=== PATIENT | female | born 1940 | race Caucasian/White ===

== ENCOUNTER → 2023-06-11 09:58 | Outpatient (REF) | payer MEDICARE, MEDICAID, SELFPAY ==
[2023-06-11 14:57] LABS: Vitamin B12 423 pg/ml (239-931)
== END ==
LOC: OLABN 09:58
PROVIDERS: ATTENDING PHYSICIAN Student in an Organized Health Care Education/Training Program
DX: M79.2 Neuralgia and neuritis, unspecified (principal); D53.9 Nutritional anemia, unspecified
CPT/HCPCS: 36415; 82525; 82607; 84630

== ENCOUNTER → 2023-06-20 10:08 | Outpatient (REF) | payer MEDICARE, MEDICAID, SELFPAY ==
[2023-06-20 11:28] LABS: % Basophils 0.3 % (0-2); % Eosinophils 2.9 % (0-6); % Lymphocytes 14.2 % (20.5-51.1); % Monocytes 10.1 % (1.7-9.3); % Neutrophils 71.5 % (42.2-75.2); Absolute Eosinophils 0.3 10^3/uL (0-0.7); Absolute Immature Granulocytes 0.1 10^3/uL (0-0.05); Absolute Lymphocytes 1.7 10^3/uL (1.2-3.4); Absolute Monocytes 1.2 10^3/uL (0.1-0.6); Absolute Neutrophils 8.3 10^3/uL (1.4-6.5); Hematocrit 33.7 % (37.0-47.0); Hemoglobin 10.3 g/dL (12.0-16.0); Mean Corp Hgb Conc. 30.6 g/dL (33.0-37.0); Mean Corpuscular Hgb 25.3 pg (27.0-31.0); Mean Corpuscular Volume 82.8 fL (81.0-99.0); Mean Platelet Volume 9.8 fL (7.4-10.4); Nucleated Red Blood Cells % 0 %; Platelet Count 228 10^3/uL (130-400); Red Blood Cell Count 4.07 10^6/uL (4.20-5.40); Red Cell Dist. Width 15.1 % (11.5-14.5); White Blood Cell Count 11.7 10^3/uL (4.8-10.8)
== END ==
LOC: OLABN 10:08
PROVIDERS: ATTENDING PHYSICIAN Student in an Organized Health Care Education/Training Program
DX: R05.9 Cough, unspecified (principal)
CPT/HCPCS: 36415; 85025

== ENCOUNTER → 2023-06-21 10:52 | Outpatient (REF) | payer MEDICARE, MEDICAID, SELFPAY ==
[2023-06-21 12:27] LABS: Urine Albumin 1+ (Neg - Trace); Urine Bilirubin Negative (Negative); Urine Character Very Cloudy (Clear); Urine Color Yellow; Urine Glucose Negative (Negative); Urine Ketone Trace (Negative); Urine Leukocyte 1+ (Negative); Urine Nitrite Negative (Negative); Urine Occult Blood Negative (Negative); Urine Urobilinogen Negative (Neg - 1+)
[2023-06-21 12:56] LABS: Urine Bacteria Many (Negative); Urine Red Blood Cell None Seen /HPF (0-2); Urine Triple Phosphate Crystal Present
== END ==
LOC: OLABN 10:52
PROVIDERS: ATTENDING PHYSICIAN Student in an Organized Health Care Education/Training Program
DX: R05.9 Cough, unspecified (principal); R82.90 Unspecified abnormal findings in urine
CPT/HCPCS: 36415; 81003; 81015; 87086

== ENCOUNTER → 2023-06-24 10:58 | Outpatient (REF) | payer MEDICARE, MEDICAID, SELFPAY | LOC: OLABN 10:58 | PROVIDERS: ATTENDING PHYSICIAN Student in an Organized Health Care Education/Training Program | DX: R05.9 Cough, unspecified (principal) | CPT/HCPCS: 36415 ==

== ENCOUNTER → 2023-06-25 11:38 | Outpatient (REF) | payer MEDICARE, MEDICAID, SELFPAY ==
[2023-06-25 13:22] LABS: Blood Urea Nitrogen 27 mg/dl (7-17); Calcium 8.5 mg/dl (8.4-10.2); Carbon Dioxide 30 mmol/L (22-30); Chloride 99 mmol/L (98-107); Glucose 94 mg/dl (70-99); Potassium 4.3 mmol/L (3.5-5.1); Sodium 138 mmol/L (135-145); eGFR 38.03
== END ==
LOC: OLABN 11:38
PROVIDERS: ATTENDING PHYSICIAN Student in an Organized Health Care Education/Training Program
DX: R05.9 Cough, unspecified (principal)
CPT/HCPCS: 36415; 80048

== ENCOUNTER 2023-07-31 16:15 | Inpatient (IN) | payer MEDICARE, MEDICAID, SELFPAY ==
[2023-07-31] VITALS (11 sets, daily range): BP systolic 106–166; BP diastolic 47–97; BMI 34.1
[2023-07-31 11:25] LABS: % Basophils 0.3 % (0-2); % Eosinophils 1.2 % (0-6); % Immature Granulocytes 0.4 % (0-0.5); % Lymphocytes 7.5 % (20.5-51.1); % Monocytes 3.5 % (1.7-9.3); % Neutrophils 87.1 % (42.2-75.2); Absolute Eosinophils 0.1 10^3/uL (0-0.7); Absolute Lymphocytes 0.7 10^3/uL (1.2-3.4); Absolute Monocytes 0.3 10^3/uL (0.1-0.6); Absolute Neutrophils 8.1 10^3/uL (1.4-6.5); Hematocrit 35.8 % (37.0-47.0); Hemoglobin 10.7 g/dL (12.0-16.0); Mean Corp Hgb Conc. 29.9 g/dL (33.0-37.0); Mean Corpuscular Hgb 24.6 pg (27.0-31.0); Mean Corpuscular Volume 82.3 fL (81.0-99.0); Mean Platelet Volume 8.9 fL (7.4-10.4); Nucleated Red Blood Cells % 0 %; Platelet Count 184 10^3/uL (130-400); Red Blood Cell Count 4.35 10^6/uL (4.20-5.40); White Blood Cell Count 9.3 10^3/uL (4.8-10.8)
[2023-07-31] MEDS: NSS 500 IV (11:27)
[2023-07-31 11:36] LABS: Lactic Acid 2.6 mmol/L (0.7-2.0)
[2023-07-31 11:37] LABS: ALT (SGPT) 16 U/L (0-35); AST (SGOT) 23 U/L (14-36); Albumin 4.2 g/dl (3.5-5.0); Alkaline Phosphatase 135 U/L (38-126); Blood Urea Nitrogen 22 mg/dl (7-17); Calcium 9.2 mg/dl (8.4-10.2); Carbon Dioxide 27 mmol/L (22-30); Chloride 102 mmol/L (98-107); Estimated Creatinine Clearance 45 ml/min; Glucose 107 mg/dl (70-99); Potassium 4.1 mmol/L (3.5-5.1); Sodium 138 mmol/L (135-145); Total Bilirubin 0.6 mg/dl (0.2-1.3); Total Protein 7.1 g/dl (6.3-8.2); eGFR 41.57
[2023-07-31 11:38] LABS: Urine Albumin Trace (Neg - Trace); Urine Bilirubin Negative (Negative); Urine Character Clear (Clear); Urine Color Yellow; Urine Glucose Negative (Negative); Urine Ketone Negative (Negative); Urine Leukocyte 1+ (Negative); Urine Nitrite Positive (Negative); Urine Occult Blood Negative (Negative); Urine Urobilinogen Negative (Neg - 1+)
[2023-07-31 11:56] LABS: Urine Mucus Few
[2023-07-31 11:57] LABS: Urine Amorphous Seen; Urine White Cell 30-40 /HPF (0-5)
[2023-07-31 11:58] LABS: Urine Bacteria Moderate (Negative)
[2023-07-31] MEDS: TYLENOL 650 MG PO ×2 (11:59→18:46)
[2023-07-31 12:40] LABS: COVID-19 Antigen Negative (Negative)
[2023-07-31] MEDS: ROXICODONE 5 MG PO (12:49)
--- NOTE | 2023-07-31 14:36 | ED.GENMED ---
History of Present Illness
General
Chief Complaint: Urinary Symptoms
Source: patient
Time Seen by Provider: 07/31/23 10:48
Travel History
Have you had any contact with someone who has COVID-19?: No
Do you have any symptoms of coronavirus? Fever > 100 degrees, chills, cough, shortness of breath, sore throat, loss of taste or smell, muscle aches, or headache?: Yes
Symptoms:: fever
History of Present Illness
History of Present Illness:
82-year-old female sent to the emergency room from [facility] where the staff were concerned the patient may be developing an infection. They states she seems less responsive and more confused than normal. Patient has had urinary tract
infections in the past. She evidently has been 'septic' in the past. They were concerned that she might quickly decompensate. Patient offers no complaints.
Past History
Past History
ED Past Medical History: Arrthythmia (SSS), HTN, Hypothyroidism and Other (Chronic idiopathic neuropathy, irritable bowel syndrome, arthritis, neurogenic bladder-self caths)
ED Past Surgical History: Cardiac (pacemaker), Cholecystectomy, Orthopedic and Other (thyroidectomy)
Social History
Tobacco: Non-smoker
Alcohol: None
Drug: None
Personal:
Living: alone
Employment: Not employed
Family History
Family History: Other
Phy Exam
Physical Exam
Physical Exam:
General: Awake, Alert, Oriented X2. Appears chronically ill
Vitals: Initially afebrile but repeat temperature measurements noted a temperature of 102.5
Head: Atraumatic
Eyes: Pupils equal, EOMI
Throat: Airway intact, no exudates, dry mucosa
Neck: Trachea midline
Lungs: Clear and equal b/l
Heart: Regular rate, no murmurs
Abd: Soft, Nontender, No pulsatile mass
Genitalia: Indwelling Hair
Neuro: Grossly nonfocal
Skin: Warm, dry, no rash
Extremities: pulses equal b/l, 1+ edema
Course
Orders/Labs/Results
Orders:
Orders
07/31/23 10:53
CR Chest - 2 Views Urgent
Comment:
Reason For Exam: malaise, cough
07/31/23 10:54
0.9% Sodium Chloride 500 ml [Nss] 500 ml IV BOLUS
07/31/23 11:16
Complete Blood Count/With Diff Urgent
Comprehensive Metabolic Panel Urgent
Lactic Acid Q4H
Comment: CANCEL 2nd LACTIC ACID IF 1st LACTIC ACID IS LESS THAN 2
Urinalysis Reflex To Culture Urgent
Date Specimen was Collected: 07/31/23
Time Specimen was Collected: 11:14
Urine Microscopic Reflex Cult Urgent
Urine Culture Urgent
JUAN PABLO Source: U
Specimen Description:
Date Specimen was Collected: 07/31/23
Time Specimen was Collected: 11:14
07/31/23 11:58
Acetaminophen [Tylenol] 650 mg .ROUTE .STK-MED ONE
07/31/23 11:59
Acetaminophen [Tylenol] 650 mg PO NOW STA
07/31/23 12:20
COVID-19 Antigen Urgent
Source: Nasal Swab
Influenza A+B Rapid Molecular Urgent
JUAN PABLO Source: Nasal Swab
Specimen Description:
07/31/23 12:45
Oxycodone [Roxicodone] 5 mg PO NOW STA
07/31/23 14:34
CefTRIAXone [Rocephin] 1,000 mg IV NOW STA
07/31/23 15:14
Lactic Acid Q4H
Comment: CANCEL 2nd LACTIC ACID IF 1st LACTIC ACID IS LESS THAN 2
07/31/23 15:34
Admit/Transfer Patient As Directed
Co-Sign Provider:
Level of Care: Inpatient admission
Assign to:: Medical/Surgical
Physician / Group: Mirsky/Hospitalist
Diagnosis: CAUTI
Reason for Hospitalization: Sepsis
CAUTI
Expected length of stay greater than two midnights?: Yes
ELOS- Estimated Length of Stay in days: 4
I certify the patient meets the requirements for IP care: Yes
07/31/23 15:42
Code Status As Directed
Resuscitation Status: Do not resuscitate
Reached after discussion with pt or family/Healthcare POA: Yes
Decision communicated with: dgt and pt
07/31/23 15:44
DNR Bracelet Application ONCE
Abnormal Lab Results
07/31/23
11:16
Hgb 10.7 L g/dL
(12.0-16.0)
Hct 35.8 L %
(37.0-47.0)
MCH 24.6 L pg
(27.0-31.0)
MCHC 29.9 L g/dL
(33.0-37.0)
RDW 15.0 H %
(11.5-14.5)
Absolute Neuts (auto) 8.1 H 10^3/uL
(1.4-6.5)
Absolute Lymphs (auto) 0.7 L 10^3/uL
(1.2-3.4)
Neutrophils % 87.1 H %
(42.2-75.2)
Lymphocytes % 7.5 L %
(20.5-51.1)
BUN 22 H mg/dl
(7-17)
Creatinine 1.3 H mg/dL
(0.6-1.0)
Glucose 107 H mg/dl
(70-99)
Lactic Acid 2.6 H mmol/L
(0.7-2.0)
Alkaline Phosphatase 135 H U/L
(38-126)
Urine Nitrite (Reflex) Positive A
(Negative)
Leukocyte Esterase Rfl 1+ A
(Negative)
Urine RBC 3-6 A /HPF
(0-2)
Urine WBC (Reflex) 30-40 A /HPF
(0-5)
Urine Bacteria (Reflex) Moderate A
(Negative)
07/31/23 11:16
07/31/23 11:16
Vital Signs
Initial and Last Documented VS:
Initial Vital Signs
Pulse Resp Pulse Ox
62 14 96
07/31/23 10:51 07/31/23 10:51 07/31/23 10:51
Last Documented Vital Signs
Temp Pulse Resp BP Pulse Ox
100.1 F 80 21 115/91 94
07/31/23 15:43 07/31/23 15:43 07/31/23 15:43 07/31/23 15:43 07/31/23 15:43
MDM/Problems Addressed
Differential Diagnosis Includes:
COVID, influenza, UTI, pneumonia
MDM/Problems Addressed:
Patient spiked a temp while here. Source of infection appears. Urine. At the back of previous microbiology results and see that in April she grew Proteus. It was sensitive to ceftriaxone among other antibiotics. Therefore ceftriaxone was
administered. Patient has remained hemodynamically stable. She was treated with antipyretics for her fever. Lactate mildly elevated. She will require hospitalization for IV antibiotics and careful monitoring.
Chronic conditions affecting care: HTN, Arrhythmia (Sick sinus syndrome status post pacemaker placement) and Other (Prolapse bladder with indwelling Hair catheter)
*Radiology
Radiology exam reviewed: preliminary read by ED provider (Reviewed patient's chest x-ray and see no acute disease)
*Pulse Oximetry
Patient hypoxic: no
*Memory Care Director Interpretation
Rate: normal
Interpretation: normal
Rhythm: sinus
*Critical Care Note
Total Time (30-74mins, 75-104mins- exclusive of procedures): Not Applicable
ED Attending Note
-
Portions of this chart may have been created with voice recognition software.� Occasional wrong word or��sound alike� substitutions may have occurred due to the inherent limitations of voice recognition software.
Discharge Plan
Departure
Patient Disposition: Admit
Date of Disposition: 07/31/23
Time of Disposition: 14:36
Admit to: Med/Surg
Presentation/result/management discussed w/ accepting MD/DO: Hospitalist
Condition: Fair
Discharge Problem:
Acute UTI
Prescriptions:
No Action
metoprolol tartrate 100 MG tablet
100 mg PO BID@0830,1830
levothyroxine 150 MCG tablet
150 mcg PO DAILY@0630
losartan 50 mg Tablet
50 mg PO DAILY@08
Trelegy Ellipta 200-62.5-25 mcg Blister With Device
1 inh INHALATION R DAILY@829
furosemide 40 MG tablet
40 mg PO DAILY@829
duloxetine 30 MG capsule,delayed release(DR/EC)
30 mg PO DAILY@1829
duloxetine 60 MG capsule,delayed release(DR/EC)
60 mg PO DAILY@0830
magnesium hydroxide [Milk of Magnesia] 400 mg/5 mL Suspension
2,400 mg PO HSPRN PRN (Reason: constipation)
bisacodyl [Dulcolax (bisacodyl)] 10 mg Suppository
10 mg AL [id number] PRN (Reason: if no BM/MOM ineffective)
lidocaine 4 % Adhesive Patch,Medicated
2 patch TOPICAL Q12H
Patient Comments:
07/31/2023, 1 patch to left shoulder and 1 patch to left knee.
oxycodone-acetaminophen [Percocet] 5-325 mg Tablet
1 tab PO Q4H
Rx Instructions:
07/31/2023, @0030,0430,0830,1230,1630,2030.
mirtazapine 30 mg Tablet
30 mg PO DAILY@2029
acetaminophen 325 MG tablet
650 mg PO DAILYPRN MDD 3000 mg PRN (Reason: mild pain/fever>100.4)
loperamide 2 mg Tablet
2 mg PO Q6HPRN PRN (Reason: diarrhea)
cyanocobalamin (vitamin B-12) 1,000 mcg Tablet, Sublingual
1,000 mcg SUBLINGUAL QMONTH@829
diclofenac sodium 1 % Gel
4 g TOPICAL Q6HPRN PRN (Reason: apply to left shoulder)
alprazolam [Xanax] 0.25 mg Tablet
0.25 mg PO BIDPRN PRN (Reason: anxiety)
ipratropium-albuterol 0.5 mg-3 mg(2.5 mg base)/3 mL solution for nebulization
3 ml INHALATION R DAILY@2029
aspirin 81 mg Tablet,Chewable
81 mg PO DAILY@829
nitrofurantoin macrocrystal 50 mg Capsule
50 mg PO DAILY@2029
ipratropium-albuterol 0.5 mg-3 mg(2.5 mg base)/3 mL Solution For Nebulization
3 ml INHALATION R Q6HPRN PRN (Reason: sob)
ropinirole 3 mg Tablet
1.5 mg PO DAILY@1829
triamcinolone acetonide 0.1 % Paste
1 applic DENTAL QIDPRN PRN (Reason: canker sores)
gabapentin 800 mg Tablet
800 mg PO TID@829,1329,2029
cranberry 400 mg Capsule
400 mg PO DAILY@829
docusate sodium [Colace] 100 mg Capsule
100 mg PO DAILY@829
calcium carbonate [Tums 500] 500 mg calcium (1,250 mg) Tablet,Chewable
500 mg PO DAILY PRN (Reason: acid indigestion)
diclofenac sodium 1 % Gel
2 g TOPICAL Q6HPRN PRN (Reason: left knee pain)
omeprazole 20 mg Tablet,Delayed Release (Dr/Ec)
20 mg PO BID@829,1829
cholecalciferol (vitamin D3) 1,250 mcg (50,000 unit) Tablet
1,250 mcg PO QMONTH@829
Probiotic Colon Support
1 cap PO DAILY@829
diltiazem HCl 300 MG capsule,extended release 24hr
300 mg PO DAILY@829
dicyclomine 10 MG capsule
10 mg PO TIDPRN PRN (Reason: IBS)
Referrals:
Rui Roe DO [Family Provider] -
Interventions
Interventions:
*Risk Screen - Suicide Last Done: 07/31/23 11:12
*Neglect/Abuse Screening Last Done: 07/31/23 11:12
ED- Fall Risk Assessment Last Done: 07/31/23 11:21
*ED COVID-19 Vaccine History Last Done: 07/31/23 11:20
ED-Female Genitourinary Assessment Last Done: 07/31/23 11:22
Discharge Date and Time
Print Language: KOREAN
[2023-07-31] MEDS: ROCEPHIN 1000 MG IV (14:47)
[2023-07-31 15:32] LABS: Lactic Acid 1.4 mmol/L (0.7-2.0)
--- NOTE | 2023-07-31 16:20 | W.PN.HOSP.TC ---
Today's Communication/Plan
-
empiric IV abx
Assessment / Plan
Assessment / Plan
CAUTI
pt would intermittently cath for ~12hrs, becoming more difficult and now has chronic indwelling past 1 yr. Ur cx pending
Left Knee warm to the touch
she had synvisc injection to this knee 2 weeks [employer]
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
PPM
Neurogenic bladder
obesity
nonambulatory
hypothyroid on replacement
Irritable Bowel syndrome
P:IVF
empiric Rocephin pending Ur cx
follow progression of left knee warmth, may need ortho eval
DNR
see dictated note
Anticipated Discharge: > 48 hours
Subjective/Interval History
-
Date of Service: July 31, 2023
onset of chills at [facility], concern for recurrent sepsis and sent to for evaluation
Objective Data
-
Labs:
Laboratory Results
07/31/23
11:16
WBC 9.3
Hgb 10.7 L
Hct 35.8 L
Plt Count 184
Sodium 138
Potassium 4.1
Chloride 102
Carbon Dioxide 27
BUN 22 H
Creatinine 1.3 H
Glucose 107 H
Calcium 9.2
Total Bilirubin 0.6
AST 23
ALT 16
Alkaline Phosphatase 135 H
Vital Signs:
Vital Signs
Temp Pulse Resp BP Pulse Ox
100.1 F 80 21 115/91 94
07/31/23 15:43 07/31/23 15:43 07/31/23 15:43 07/31/23 15:43 07/31/23 15:43
I&O
07/30/23 07/31/23 08/01/23
06:59 06:59 06:59
Output Total 875 / 875
Balance -875 / -87
Review of Systems
-
History Source: Patient and Family (dgt Yudith at bedside)
Constitutional: Reports Fever (102.5)
EENT: Reports No Symptoms Reported
Respiratory: Reports No Symptoms
Cardiac: Reports No Symptoms; Denies Chest Pain
Abdomen/GI: Reports No Symptoms
Genitourinary: Reports Other (chronic indwelling klein due to neurogenic bladder)
Physical Exam
-
General: Well Developed, Well Nourished, No Apparent Distress, Appears Chronically Ill and Obese
HEENT: Normocephalic, Atraumatic and Moist Mucous Membranes
Respiratory: Clear to Auscultation; Negative Wheezes, Rales or Rhonchi
Cardiac: Regular Rhythm and S1/S2
GI: Soft, Nontender and Nondistended
Musculoskeletal: No Clubbing, No Cyanosis, No Edema and Other (left knee warm to the touch)
[2023-07-31] MEDS: PERCOCET 5/325 1 TABLET PO ×2 (17:14→21:13)
[2023-07-31] MEDS: DUONEB 3 ML INH (19:50)
[2023-07-31] MEDS: NSS 1000 IV (21:07)
[2023-07-31] MEDS: PROTONIX 40 MG PO (21:08)
[2023-07-31] MEDS: CYMBALTA DELAYED RELEASE 30 MG PO (21:10)
[2023-07-31] MEDS: LOPRESSOR 100 MG PO (21:10)
[2023-07-31] MEDS: HEPARIN 5000 UNITS SC (21:11)
[2023-07-31] MEDS: REQUIP 1.5 MG PO (21:12)
[2023-07-31] MEDS: NEURONTIN 800 MG PO (21:30)
[2023-07-31] MEDS: REMERON 30 MG PO (21:30)
[2023-08-01] MEDS: PERCOCET 5/325 PO (02:26)
[2023-08-01] MEDS: PERCOCET 5/325 1 TABLET PO ×5 (05:38→20:29)
[2023-08-01 06:20] LABS: Hematocrit 29.7 % (37.0-47.0); Mean Corp Hgb Conc. 30.3 g/dL (33.0-37.0); Mean Corpuscular Hgb 24.7 pg (27.0-31.0); Mean Corpuscular Volume 81.4 fL (81.0-99.0); Mean Platelet Volume 9.6 fL (7.4-10.4); Platelet Count 150 10^3/uL (130-400); Red Blood Cell Count 3.65 10^6/uL (4.20-5.40); Red Cell Dist. Width 15.4 % (11.5-14.5); White Blood Cell Count 8.6 10^3/uL (4.8-10.8)
[2023-08-01 06:53] LABS: ALT (SGPT) 13 U/L (0-35); AST (SGOT) 22 U/L (14-36); Albumin 3.3 g/dl (3.5-5.0); Alkaline Phosphatase 115 U/L (38-126); Blood Urea Nitrogen 21 mg/dl (7-17); Calcium 8.5 mg/dl (8.4-10.2); Carbon Dioxide 26 mmol/L (22-30); Chloride 106 mmol/L (98-107); Estimated Creatinine Clearance 43 ml/min; Glucose 93 mg/dl (70-99); Potassium 3.7 mmol/L (3.5-5.1); Sodium 137 mmol/L (135-145); Total Bilirubin 0.4 mg/dl (0.2-1.3); Total Protein 5.7 g/dl (6.3-8.2); eGFR 41.57
[2023-08-01] MEDS: SYMBICORT 160/4.5 MCG INHALER 2 PUFF INH (07:59)
[2023-08-01] MEDS: SPIRIVA RESPIMAT 2.5 MCG 2 PUFF INH (07:59)
[2023-08-01 08:00] VITALS: BP 142/69
[2023-08-01] MEDS: NSS 1000 IV (08:09)
[2023-08-01] MEDS: CYMBALTA DELAYED RELEASE 60 MG PO (08:09)
[2023-08-01] MEDS: LOW STRENGTH ASPIRIN 81 MG PO (08:09)
[2023-08-01] MEDS: PROTONIX 40 MG PO ×2 (08:09→17:32)
[2023-08-01] MEDS: SYNTHROID 150 MCG PO (08:10)
[2023-08-01] MEDS: LIDOCAINE 4% PATCH 2 PATCH TOPICAL (08:10)
[2023-08-01] MEDS: COLACE 100 MG PO (08:10)
[2023-08-01] MEDS: VISBIOME 1 CAP PO (08:10)
[2023-08-01] MEDS: HEPARIN 5000 UNITS SC ×2 (08:10→20:28)
[2023-08-01] MEDS: LOPRESSOR 100 MG PO ×2 (08:11→17:32)
[2023-08-01] MEDS: CARDIZEM CD 300 MG PO (08:11)
[2023-08-01] MEDS: LASIX 40 MG PO (08:11)
[2023-08-01] MEDS: COZAAR 50 MG PO (08:11)
[2023-08-01] MEDS: NEURONTIN 800 MG PO ×3 (08:17→20:32)
[2023-08-01 09:54] VITALS: BP 138/62; PULSE 71
[2023-08-01 09:59] VITALS: BP 138/62; O2SAT 96
--- NOTE | 2023-08-01 12:08 | W.PN.HOSP.TC ---
Today's Communication/Plan
-
check AM procal and if + can add doxy
switch to Merrem given prior ESBL hx
monitor knee for any signs of effusion or warmth
Assessment / Plan
Assessment / Plan
Assessment:
CAUTI, POA
hx of Neurogenic bladder with prolapsed bladder
- the chronic Hair was exchanged in ER
- prior hx of ESBL - will switch to Merrem pending final data
Acute hypoxic respiratory insufficiency on 2L
- CXR with atelectasis, cannot rule out PNA
- check procal, if positive, will add Doxy
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
- s/p Synvisc injection 2 weeks ago
- slightly warm but no effusion, patient with baseline ROM
- CTM
- on diclofenac outpatient
- on lidocaine patches
CKD stage 3b
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
Neuropathy
- Gabapentin
Essential HTN - continue ARB
hx SSS s/p PPM
- continue BB
obesity
nonambulatory
hypothyroidism on replacement
Irritable Bowel syndrome
- on prn Bentyl
anxiety/depression
- on meds
DVT ppx: SC Heparin
Code: DNR
Anticipated Discharge: > 48 hours
Subjective/Interval History
-
Date of Service: August 01, 2023
denies any new complaints at present
Objective Data
-
Labs:
Laboratory Results
08/01/23
05:34
WBC 8.6
Hgb 9.0 L
Hct 29.7 L
Plt Count 150
Sodium 137
Potassium 3.7
Chloride 106
Carbon Dioxide 26
BUN 21 H
Creatinine 1.3 H
Glucose 93
Calcium 8.5
Total Bilirubin 0.4
AST 22
ALT 13
Alkaline Phosphatase 115
Vital Signs:
Vital Signs
Temp Pulse Resp BP Pulse Ox
99.2 F 74 18 142/69 98
08/01/23 08:00 08/01/23 08:11 08/01/23 08:02 08/01/23 08:11 08/01/23 10:37
I&O
07/31/23 08/01/23 08/02/23
06:59 06:59 06:59
Intake Total 720 / 720
Output Total 1974 650 / 650
Balance -1255 / -1255 -650 / -650
Physical Exam
-
General: No Apparent Distress
HEENT: Normocephalic and Atraumatic
Respiratory: Negative Wheezes
Cardiac: Regular Rhythm and S1/S2
GI: Soft and Nontender
Genito-urinary: No Costovertebral Tender
Neuro: AO x 3
Psych: Calm
Data Reviewed
-
Total Time Spent with Patient (in minutes): 45
Labs: Labs Reviewed by me
[2023-08-01] MEDS: VENTOLIN NEBULES 2.5 MG INH (12:23)
[2023-08-01] MEDS: VIBRAMYCIN 100 MG PO ×2 (13:00→20:28)
[2023-08-01] MEDS: STERILE WATER FOR INJECTION 10 ML IV ×2 (13:00→20:29)
[2023-08-01] MEDS: MERREM 500 MG IV ×2 (13:00→20:30)
--- NOTE | 2023-08-01 13:19 | CM ---
Reviewed the chart notes and spoke with the patient at the bedside. 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 Left message for Sterling héctor liaison with [facility] to confirm. The patient reports being wheelchair bound at baseline.
The patient anticipates being discharged back to [facility] when medically stable. No precert required. CM continues to be available to patient/family and is monitoring medical plan for needs at discharge.
Plan: Discharge back to [facility] when medically stable. No precert required.
--- NOTE | 2023-08-01 15:30 | PTCARENOTE ---
Patient complaining of mild SOB at rest, unrelieved by PRN resp treatment. VSS, patient 97% on 2L, lungs clear to auscultation. made aware, IVF JASWANT.
[2023-08-01 16:00] VITALS: BP 129/62
[2023-08-01] MEDS: CYMBALTA DELAYED RELEASE 30 MG PO (17:32)
[2023-08-01] MEDS: REQUIP 1.5 MG PO (17:32)
[2023-08-01] MEDS: VENTOLIN NEBULES INH (20:16)
[2023-08-01] MEDS: REMERON 30 MG PO (20:29)
[2023-08-01 23:20] VITALS: BP 110/57
[2023-08-02] MEDS: PERCOCET 5/325 PO (00:25)
[2023-08-02] MEDS: STERILE WATER FOR INJECTION 10 ML IV ×3 (04:32→20:24)
[2023-08-02] MEDS: MERREM 500 MG IV ×3 (04:32→20:23)
[2023-08-02] MEDS: PERCOCET 5/325 1 TABLET PO ×5 (04:33→20:22)
[2023-08-02] MEDS: SYNTHROID 150 MCG PO (05:26)
[2023-08-02 07:40] VITALS: BP 154/71
[2023-08-02] MEDS: SYMBICORT 160/4.5 MCG INHALER 2 PUFF INH (07:41)
[2023-08-02] MEDS: SPIRIVA RESPIMAT 2.5 MCG 2 PUFF INH (07:41)
[2023-08-02] MEDS: HEPARIN 5000 UNITS SC ×2 (08:07→20:22)
[2023-08-02] MEDS: VISBIOME 1 CAP PO (08:09)
[2023-08-02] MEDS: CYMBALTA DELAYED RELEASE 60 MG PO (08:09)
[2023-08-02] MEDS: LIDOCAINE 4% PATCH 2 PATCH TOPICAL (08:09)
[2023-08-02] MEDS: LASIX 40 MG PO (08:09)
[2023-08-02] MEDS: VIBRAMYCIN 100 MG PO ×2 (08:09→20:22)
[2023-08-02] MEDS: LOW STRENGTH ASPIRIN 81 MG PO (08:09)
[2023-08-02] MEDS: COZAAR 50 MG PO (08:10)
[2023-08-02] MEDS: PROTONIX 40 MG PO ×2 (08:10→17:46)
[2023-08-02] MEDS: COLACE 100 MG PO (08:11)
[2023-08-02] MEDS: CARDIZEM CD 300 MG PO (08:11)
[2023-08-02] MEDS: LOPRESSOR 100 MG PO ×2 (08:11→17:46)
[2023-08-02 09:18] LABS: Hematocrit 32.3 % (37.0-47.0); Hemoglobin 9.8 g/dL (12.0-16.0); Mean Corp Hgb Conc. 30.3 g/dL (33.0-37.0); Mean Corpuscular Hgb 24.4 pg (27.0-31.0); Mean Corpuscular Volume 80.5 fL (81.0-99.0); Mean Platelet Volume 9.3 fL (7.4-10.4); Platelet Count 172 10^3/uL (130-400); Red Blood Cell Count 4.01 10^6/uL (4.20-5.40); Red Cell Dist. Width 15.3 % (11.5-14.5); White Blood Cell Count 7.7 10^3/uL (4.8-10.8)
[2023-08-02] MEDS: NEURONTIN 800 MG PO ×3 (09:37→20:21)
[2023-08-02 09:41] LABS: Blood Urea Nitrogen 16 mg/dl (7-17); Carbon Dioxide 28 mmol/L (22-30); Chloride 108 mmol/L (98-107); Estimated Creatinine Clearance 51 ml/min; Glucose 105 mg/dl (70-99); Potassium 3.8 mmol/L (3.5-5.1); Sodium 138 mmol/L (135-145)
[2023-08-02 10:36] LABS: Procalcitonin 3.67 ng/ml (0.0-0.25)
--- NOTE | 2023-08-02 12:43 | W.PN.HOSP.TC ---
Today's Communication/Plan
-
continue Merrem/Doxy
follow cultures
wean O2
Assessment / Plan
Assessment / Plan
Assessment:
CAUTI, POA
hx of Neurogenic bladder with prolapsed bladder
- the chronic Hair was exchanged in ER
- continue Merrem
- UCx growing multi-drug resistant Klebsiella and Pseudomas
Acute hypoxic respiratory insufficiency on 2L
- CXR with atelectasis, procal elevated
- continue Merrem, Doxy, day 2
- wean O2 as able
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
- s/p Synvisc injection 2 weeks ago
- slightly warm but no effusion, patient with baseline ROM
- CTM
- on diclofenac outpatient
- on lidocaine patches
CKD stage 3b
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
Neuropathy
- Gabapentin
Essential HTN - continue ARB
hx SSS s/p PPM
- continue BB
obesity
nonambulatory
hypothyroidism on replacement
Irritable Bowel syndrome
- on prn Bentyl
anxiety/depression
- on meds
DVT ppx: SC Heparin
Code: DNR
Anticipated Discharge: > 48 hours
Subjective/Interval History
-
Date of Service: August 02, 2023
SOB improving
denies any other complaints
Objective Data
-
Labs:
Laboratory Results
08/02/23
08:56
WBC 7.7
Hgb 9.8 L
Hct 32.3 L
Plt Count 172
Sodium 138
Potassium 3.8
Chloride 108 H
Carbon Dioxide 28
BUN 16
Creatinine 1.1 H
Glucose 105 H
Calcium 9.0
Vital Signs:
Vital Signs
Temp Pulse Resp BP Pulse Ox
98.2 F 77 15 154/71 96
08/02/23 07:40 08/02/23 08:11 08/02/23 07:48 08/02/23 08:11 08/02/23 08:00
I&O
08/01/23 08/02/23 08/03/23
06:59 06:59 06:59
Intake Total 720 / 720 1020 / 1020
Output Total 1974 / 1974 2300 / 2300
Balance -1255 / -1255 -1280 / -1280
Physical Exam
-
General: No Apparent Distress
HEENT: Normocephalic and Atraumatic
Respiratory: Negative Wheezes
Cardiac: Regular Rhythm and S1/S2
GI: Soft
Genito-urinary: No Costovertebral Tender
Neuro: AO x 3
Hematologic / Lymphatic: No Lymphadenopathy
Psych: Calm
Data Reviewed
-
Total Time Spent with Patient (in minutes): 45
Labs: Labs Reviewed by me
[2023-08-02 15:25] VITALS: BP 145/77
--- NOTE | 2023-08-02 15:28 | CM ---
Attending noted patient will return to [facility] earliest on FridayAugust 03.
[2023-08-02] MEDS: CYMBALTA DELAYED RELEASE 30 MG PO (17:45)
[2023-08-02] MEDS: REQUIP 1.5 MG PO (17:46)
[2023-08-02] MEDS: VENTOLIN NEBULES 2.5 MG INH (18:23)
[2023-08-02] MEDS: REMERON 30 MG PO (20:22)
[2023-08-02 23:40] VITALS: BP 110/57
[2023-08-03] MEDS: PERCOCET 5/325 PO ×2 (00:33→14:50)
[2023-08-03] MEDS: PERCOCET 5/325 1 TABLET PO ×5 (01:35→20:50)
[2023-08-03] MEDS: STERILE WATER FOR INJECTION 10 ML IV ×3 (05:21→20:50)
[2023-08-03] MEDS: SYNTHROID 150 MCG PO (05:21)
[2023-08-03] MEDS: MERREM 500 MG IV ×3 (05:22→20:51)
[2023-08-03 07:39] VITALS: BP 151/66
[2023-08-03] MEDS: SYMBICORT 160/4.5 MCG INHALER 2 PUFF INH (08:00)
[2023-08-03] MEDS: SPIRIVA RESPIMAT 2.5 MCG 2 PUFF INH (08:00)
[2023-08-03 08:51] LABS: Hematocrit 34.8 % (37.0-47.0); Hemoglobin 10.3 g/dL (12.0-16.0); Mean Corp Hgb Conc. 29.6 g/dL (33.0-37.0); Mean Corpuscular Hgb 24.5 pg (27.0-31.0); Mean Corpuscular Volume 82.9 fL (81.0-99.0); Mean Platelet Volume 9.4 fL (7.4-10.4); Platelet Count 191 10^3/uL (130-400); Red Cell Dist. Width 15.5 % (11.5-14.5); White Blood Cell Count 7.8 10^3/uL (4.8-10.8)
[2023-08-03 09:21] LABS: Blood Urea Nitrogen 18 mg/dl (7-17); Calcium 9.2 mg/dl (8.4-10.2); Carbon Dioxide 31 mmol/L (22-30); Chloride 102 mmol/L (98-107); Estimated Creatinine Clearance 47 ml/min; Glucose 87 mg/dl (70-99); Potassium 4.1 mmol/L (3.5-5.1); Sodium 140 mmol/L (135-145); eGFR 45.76
[2023-08-03] MEDS: LASIX 40 MG PO (10:06)
[2023-08-03] MEDS: HEPARIN 5000 UNITS SC ×2 (10:07→20:49)
[2023-08-03] MEDS: LOW STRENGTH ASPIRIN 81 MG PO (10:08)
[2023-08-03] MEDS: LOPRESSOR 100 MG PO ×2 (10:09→17:34)
[2023-08-03] MEDS: VIBRAMYCIN 100 MG PO ×2 (10:10→20:50)
[2023-08-03] MEDS: VISBIOME 1 CAP PO (10:13)
[2023-08-03] MEDS: COLACE 100 MG PO (10:13)
[2023-08-03] MEDS: PROTONIX 40 MG PO ×2 (10:14→17:34)
[2023-08-03] MEDS: COZAAR 50 MG PO (10:15)
[2023-08-03] MEDS: CARDIZEM CD 300 MG PO (10:15)
[2023-08-03] MEDS: CYMBALTA DELAYED RELEASE 60 MG PO (10:17)
[2023-08-03] MEDS: DICLOFENAC 1% TOPICAL GEL 2 GRAM TOPICAL (10:19)
[2023-08-03] MEDS: NEURONTIN 800 MG PO ×3 (10:21→21:04)
[2023-08-03] MEDS: LIDOCAINE 4% PATCH 2 PATCH TOPICAL (10:22)
[2023-08-03] MEDS: XANAX 0.25 MG PO (10:32)
--- NOTE | 2023-08-03 14:03 | W.PN.HOSP.TC ---
Today's Communication/Plan
-
continue Abx
likely DC in AM
Assessment / Plan
Assessment / Plan
Assessment:
CAUTI, POA
hx of Neurogenic bladder with prolapsed bladder
- the chronic Hair was exchanged in ER
- continue Merrem
- UCx growing multi-drug resistant Klebsiella and Pseudomonas
Acute hypoxic respiratory insufficiency on 2L
- CXR with atelectasis, procal elevated
- continue Merrem, Doxy, day 3; at dc switch Merrem to Levaquin
- wean O2 as able
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
- s/p Synvisc injection 2 weeks ago
- slightly warm but no effusion, patient with baseline ROM
- CTM
- on diclofenac outpatient
- on lidocaine patches
CKD stage 3b
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
Neuropathy
- Gabapentin/oxycodone
Essential HTN - continue ARB
hx SSS s/p PPM
- continue BB
obesity
nonambulatory
hypothyroidism on replacement
Irritable Bowel syndrome
- on prn Bentyl
anxiety/depression
- on meds
DVT ppx: SC Heparin
Code: DNR
Anticipated Discharge: Within 24 hours
Subjective/Interval History
-
Date of Service: August 03, 2023
anxious per daughter Yudith
no new complaints
Objective Data
-
Labs:
Laboratory Results
08/03/23
07:48
WBC 7.8
Hgb 10.3 L
Hct 34.8 L
Plt Count 191
Sodium 140
Potassium 4.1
Chloride 102
Carbon Dioxide 31 H
BUN 18 H
Creatinine 1.2 H
Glucose 87
Calcium 9.2
Vital Signs:
Vital Signs
Temp Pulse Resp BP Pulse Ox
98.0 F 70 16 151/66 95
08/03/23 07:39 08/03/23 10:15 08/03/23 07:55 08/03/23 10:15 08/03/23 07:55
I&O
08/02/23 08/03/23 08/04/23
06:59 06:59 06:59
Intake Total 1020 / 1020 1410 / 1410
Output Total 2300 / 2300 3650 / 3650
Balance -1280 / -1280 -2240 / -2240
Physical Exam
-
General: No Apparent Distress
HEENT: Normocephalic and Atraumatic
Respiratory: Negative Wheezes or Rales
Cardiac: Regular Rhythm and S1/S2
GI: Soft
Genito-urinary: No Costovertebral Tender
Neuro: AO x 3
Hematologic / Lymphatic: No Lymphadenopathy
Psych: Calm
Data Reviewed
-
Total Time Spent with Patient (in minutes): 42
Labs: Labs Reviewed by me
[2023-08-03 15:30] VITALS: BP 157/70
--- NOTE | 2023-08-03 15:58 | CM ---
[facility] anticipate stable for return tomorrow/Friday.
[2023-08-03] MEDS: CYMBALTA DELAYED RELEASE 30 MG PO (17:34)
[2023-08-03] MEDS: REQUIP 1.5 MG PO (17:34)
[2023-08-03] MEDS: REMERON 30 MG PO (20:50)
[2023-08-03] MEDS: VENTOLIN NEBULES INH (21:49)
[2023-08-03 23:08] VITALS: BP 149/76
[2023-08-04] MEDS: PERCOCET 5/325 PO (03:01)
[2023-08-04] MEDS: PERCOCET 5/325 1 TABLET PO ×3 (03:02→11:58)
[2023-08-04 03:34] VITALS: BMI 33.5
[2023-08-04] MEDS: MERREM 500 MG IV ×2 (05:23→12:01)
[2023-08-04] MEDS: SYNTHROID 150 MCG PO (05:24)
[2023-08-04] MEDS: STERILE WATER FOR INJECTION 10 ML IV ×2 (05:24→12:01)
[2023-08-04 06:18] LABS: Hemoglobin 10.3 g/dL (12.0-16.0); Mean Corp Hgb Conc. 30.3 g/dL (33.0-37.0); Mean Corpuscular Hgb 24.8 pg (27.0-31.0); Mean Corpuscular Volume 81.7 fL (81.0-99.0); Platelet Count 204 10^3/uL (130-400); Red Blood Cell Count 4.16 10^6/uL (4.20-5.40); White Blood Cell Count 9.4 10^3/uL (4.8-10.8)
[2023-08-04 06:46] LABS: Blood Urea Nitrogen 19 mg/dl (7-17); Calcium 9.4 mg/dl (8.4-10.2); Carbon Dioxide 31 mmol/L (22-30); Chloride 100 mmol/L (98-107); Estimated Creatinine Clearance 46 ml/min; Glucose 86 mg/dl (70-99); Sodium 139 mmol/L (135-145); eGFR 45.76
[2023-08-04] MEDS: SPIRIVA RESPIMAT 2.5 MCG 2 PUFF INH (07:45)
[2023-08-04] MEDS: SYMBICORT 160/4.5 MCG INHALER 2 PUFF INH (07:45)
[2023-08-04 08:11] VITALS: BP 142/83
--- NOTE | 2023-08-04 08:43 | CM ---
Addendum entered by Saira Oro RN 08/04/23 09:04:
spoke with Sterling anaya liaison with [facility].
Call report to: [phone]
Fax report to: [phone]
Medical necessity and transport form on chart.
Original Note:
IMM placed on chart.
[2023-08-04] MEDS: COLACE 100 MG PO (09:14)
[2023-08-04] MEDS: CARDIZEM CD 300 MG PO (09:14)
[2023-08-04] MEDS: CYMBALTA DELAYED RELEASE 60 MG PO (09:14)
[2023-08-04] MEDS: COZAAR 50 MG PO (09:14)
[2023-08-04] MEDS: VISBIOME 1 CAP PO (09:14)
[2023-08-04] MEDS: PROTONIX 40 MG PO (09:14)
[2023-08-04] MEDS: LIDOCAINE 4% PATCH 2 PATCH TOPICAL (09:15)
[2023-08-04] MEDS: LOW STRENGTH ASPIRIN 81 MG PO (09:15)
[2023-08-04] MEDS: LOPRESSOR 100 MG PO (09:15)
[2023-08-04] MEDS: VIBRAMYCIN 100 MG PO (09:15)
[2023-08-04] MEDS: HEPARIN 5000 UNITS SC (09:15)
[2023-08-04] MEDS: LASIX 40 MG PO (09:15)
[2023-08-04] MEDS: NEURONTIN 800 MG PO ×2 (09:17→12:30)
--- NOTE | 2023-08-04 10:13 | W.PN.HOSP.TC ---
Addendum entered and electronically signed by Thor Adhikari MD 08/04/23 13:46:
PNA present on admit
Addendum entered and electronically signed by Thor Adhikari MD 08/04/23 11:23:
Severe Sepsis POA (fever, lactic acidosis, tachycardia with CAUTI, PNA)
Original Note:
Today's Communication/Plan
-
dc to SNF
Assessment / Plan
Assessment / Plan
Assessment:
CAUTI, POA
hx of Neurogenic bladder with prolapsed bladder
- the chronic Hair was exchanged in ER
- UCx growing multi-drug resistant Klebsiella and Pseudomonas - sensitive to LVQ. Will DC with 7 days of treatment
Acute hypoxic respiratory insufficiency on 2L
- CXR with atelectasis, procal elevated
Will DC with 7 days of treatment
- O2 weaned
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
- s/p Synvisc injection 2 weeks ago
- slightly warm but no effusion, patient with baseline ROM
- CTM
- on diclofenac outpatient
- on lidocaine patches
CKD stage 3b
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
Neuropathy
- Gabapentin/oxycodone
Essential HTN - continue ARB
hx SSS s/p PPM
- continue BB
obesity
nonambulatory
hypothyroidism on replacement
Irritable Bowel syndrome
- on prn Bentyl
anxiety/depression
- on meds
DVT ppx: SC Heparin
Code: DNR
More than 30 minutes spent in discharge including
Final examination of the patient
Summarizing hospital stay
Instructions for continuing care to all relevant caregivers
Preparation of discharge records, prescriptions, and referral forms
Total time spent (in minutes): 41
Anticipated Discharge: Today
Subjective/Interval History
-
Date of Service: August 04, 2023
doing well, no complaints
on 93% RA this AM
Objective Data
-
Labs:
Laboratory Results
08/04/23
05:36
WBC 9.4
Hgb 10.3 L
Hct 34.0 L
Plt Count 204
Sodium 139
Potassium 4.0
Chloride 100
Carbon Dioxide 31 H
BUN 19 H
Creatinine 1.2 H
Glucose 86
Calcium 9.4
Vital Signs:
Vital Signs
Temp Pulse Resp BP Pulse Ox
98.2 F 82 19 142/83 94
08/04/23 08:11 08/04/23 09:14 08/04/23 08:11 08/04/23 09:14 08/04/23 08:11
I&O
08/03/23 08/04/23 08/05/23
06:59 06:59 06:59
Intake Total 1410 / 1410 480 / 480
Output Total 3650 / 3650 2024
Balance -2240 / -2240 -1545 / -1545
Physical Exam
-
General: No Apparent Distress
HEENT: Normocephalic and Atraumatic
Respiratory: Negative Wheezes
Cardiac: Regular Rhythm and S1/S2
GI: Soft
Genito-urinary: No Costovertebral Tender
Hematologic / Lymphatic: No Lymphadenopathy
Psych: Calm
Data Reviewed
-
Total Time Spent with Patient (in minutes): 41
Labs: Labs Reviewed by me
--- NOTE | 2023-08-04 10:29 | W.DS.TRANS ---
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
-
Discharge Instructions:
Discharge Diagnosis/Procedures CAUTI, PNA
Diet Regular
Activity As tolerated
Bathing Restrictions None
Instructions:
Stand-Alone Forms:
Changes to Home Medications: No
Discharge Medications:
DC Medications w/original date entered in [facility]
dicyclomine 10 mg capsule 10 mg PO TIDPRN PRN IBS 08/19/16
diltiazem HCl 300 mg capsule,extended release 24 hr 300 mg PO DAILY@0830 Heart disease/condition 08/19/16
levothyroxine 150 mcg tablet 150 mcg PO DAILY@0630 Thyroid 01/17/21
metoprolol tartrate 100 mg tablet 100 mg PO BID@0830,1830 Blood pressure 01/17/21
duloxetine 30 mg capsule,delayed release 30 mg PO DAILY@1830 Mental Health/Anxiety 12/03/21
duloxetine 60 mg capsule,delayed release 60 mg PO DAILY@0830 Mental Health/Anxiety 12/03/21
fluticasone fur. 200 mcg-umeclid 62.5 mcg-vilant 25 mcg inhalat.powder (Trelegy Ellipta) 1 inh inhalation R DAILY@0830 Lung/breathing issues 12/03/21
furosemide 40 mg tablet 40 mg PO DAILY@0830 Fluid retention/Swelling 12/03/21
losartan 50 mg tablet 50 mg PO DAILY@0830 Blood pressure 12/03/21
bisacodyl 10 mg rectal suppository (Dulcolax (bisacodyl)) 10 mg IN [id number] PRN if no BM/MOM ineffective 01/01/22
magnesium hydroxide 400 mg/5 mL oral suspension (Milk of Magnesia) 2,400 mg PO HSPRN PRN constipation 01/01/22
acetaminophen 325 mg tablet 650 mg PO DAILYPRN PRN mild pain/fever>100.4 07/09/22
lidocaine 4 % topical patch 2 patch topical Q12H left shoulder and left knee 07/09/22
mirtazapine 30 mg tablet 30 mg PO DAILY@2030 Sleep 07/09/22
cyanocobalamin (vitamin B-12) 1,000 mcg sublingual tablet 1,000 mcg sublingual QMONTH@0830 3rd wed of each month 12/12/22
diclofenac sodium 1 % topical gel 4 g topical Q6HPRN PRN apply to left shoulder 12/12/22
loperamide 2 mg tablet 2 mg PO Q6HPRN PRN diarrhea 12/12/22
ipratropium 0.5 mg-albuterol 3 mg (2.5 mg base)/3 mL nebulization soln 3 ml inhalation R DAILY@2030 Lung/Breathing Issues 01/14/23
Probiotic Colon Support 1 cap PO DAILY@0830 Gastrointestinal Issue 07/31/23
aspirin 81 mg chewable tablet 81 mg PO DAILY@0830 Blood Clot Prevention/Tx 07/31/23
calcium carbonate 500 mg PO DAILY PRN acid indigestion 07/31/23
cholecalciferol (vitamin D3) 1,250 mcg (50,000 unit) tablet 1,250 mcg PO QMONTH@0830 Fri of the month 07/31/23
cranberry 400 mg capsule 400 mg PO DAILY@0830 Supplement 07/31/23
diclofenac sodium 1 % topical gel 2 g topical Q6HPRN PRN left knee pain 07/31/23
docusate sodium 100 mg capsule (Colace) 100 mg PO DAILY@0830 Constipation 07/31/23
gabapentin 800 mg tablet 800 mg PO TID@0830,1330,2030 Neurological Condition 07/31/23
ipratropium 0.5 mg-albuterol 3 mg (2.5 mg base)/3 mL nebulization soln 3 ml inhalation R Q6HPRN PRN sob 07/31/23
omeprazole 20 mg tablet,delayed release 20 mg PO BID@0830,1830 Gastrointestinal Issue 07/31/23
ropinirole 3 mg tablet 1.5 mg PO DAILY@1830 Mental Health/Anxiety 07/31/23
triamcinolone acetonide 0.1 % dental paste 1 applic dental QIDPRN PRN canker sores 07/31/23
alprazolam 0.25 mg tablet (Xanax) 0.25 mg PO BIDPRN PRN anxiety #10 tabs 08/04/23
levofloxacin 750 mg tablet 750 mg PO DAILY #5 tabs 08/04/23
oxycodone-acetaminophen 5 mg-325 mg tablet (Percocet) 1 tab PO Q4H Pain #20 tabs 08/04/23
Home Medication Changes
Pending Results: No
Total time spent discharging patient (in min): 42
--- NOTE | 2023-08-04 11:02 | PN.CDI ---
CDI
- -
CDI:
Physician Documentation Request
Admit Date: 07/31/23 16:15
Dear Doctor Onofre,
Clinical Indicators:
Patient admitted with CAUTI.
07/30 PN, 'onset of chills at SNF, concern for recurrent sepsis and sent to for evaluation.'
Lactic Acid on admission:
07/31/23
11:16
Lactic Acid 2.6 H
Temp trend on admission:
07/31/23
11:11 07/31/23
12:02
Temp 100.2 F 102.5 F H
HR trend on admission:
07/31/23
10:51 07/31/23
11:02 07/31/23
11:15
Pulse 62 91 94
07/31/23
11:30 07/31/23
11:45 07/31/23
12:00
Pulse 93 94 91
Please clarify which of the following most accurately describes the status of the patient's infection:
Sepsis, POA
- Systemic manifestations of infection, with 2 or more SIRS criteria which include:
- Fever >100.4 degrees F or hypothermia < 96.8 degrees F
- Leukocytosis - WBC > 12,000 or leukopenia - WBC < 4,000 or > 10% bands
- Tachycardia > 90 beats per minute
- Tachypnea - RR > 20 breaths per minute or PaCO2 , 32mmHg
Source: Merck Manual 2013
CAUTI Only, Without Systemic Illness
Other, please specify
Use of terms such as suspected, likely, concern for, or probable (associated with a specific diagnosis that is being evaluated, monitored, or treated as if it exists) are acceptable and can be coded in the inpatient setting, when documented at the
time of discharge.
Thank you,
MELISA Tovar RN
CDI Specialist
available via tiger text
Please use your independent medical judgment in providing your response.
--- NOTE | 2023-08-04 11:17 | PN.CDI ---
CDI
- -
CDI:
Physician Documentation Request
Admit Date: 07/31/23 16:15
Dear Doctor Onofre,
Clinical Indicators:
The diagnosis of pneumonia was documented on 07/31, but is not consistently noted in subsequent documentation.
07/31 PN, 'Acute hypoxic respiratory insufficiency on 2L - CXR with atelectasis, cannot rule out PNA.'
08/02 PN, ' CXR with atelectasis, procal elevated- continue Merrem, Doxy, day 3; at dc switch Merrem to Levaquin.'
Procalcitonin:
08/02/23
08:56
Procalcitonin 3.67 H*
Please clarify the following:
Pneumonia was present on admission and is still being monitored, evaluated or treated
Pneumonia was ruled out; Atelectasis only
Pneumonia is still a likely, suspected, probable diagnosis
Other, please specify
Use of terms such as suspected, likely, concern for, or probable (associated with a specific diagnosis that is being evaluated, monitored, or treated as if it exists) are acceptable and can be coded in the inpatient setting, when documented at the
time of discharge.
Thank you,
MELISA Tovar RN
CDI Specialist
available via tiger text
Please use your independent medical judgment in providing your response.
[2023-08-04 11:28] VITALS: BP 146/86
--- NOTE | 2023-08-04 11:30 | PTCARENOTE ---
Pt being d/c. Report given to RN at [facility]. 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
[2023-08-04] MEDS: DICLOFENAC 1% TOPICAL GEL 2 GRAM TOPICAL (11:58)
[2023-08-04] MEDS: DICLOFENAC 1% TOPICAL GEL 4 GRAM TOPICAL (11:58)
== END 2023-08-04 12:53 | disposition home or self-care (01) | DRG 871 ==
LOC: 2 NORTH 16:15
PROVIDERS: ADMITTING PHYSICIAN Internal Medicine; ATTENDING PHYSICIAN Internal Medicine; EMERGENCY PHYSICIAN Emergency Medicine; FAMILY PHYSICIAN Student in an Organized Health Care Education/Training Program
DX: A41.89 Other specified sepsis (principal); J18.9 Pneumonia, unspecified organism; T83.511A Infection and inflammatory reaction due to indwelling urethral catheter, initial encounter; N39.0 Urinary tract infection, site not specified; E87.20 Acidosis, unspecified; F11.20 Opioid dependence, uncomplicated; J98.11 Atelectasis; R65.20 Severe sepsis without septic shock; Y73.8 Miscellaneous gastroenterology and urology devices associated with adverse incidents, not elsewhere classified; N31.9 Neuromuscular dysfunction of bladder, unspecified; I12.9 Hypertensive chronic kidney disease with stage 1 through stage 4 chronic kidney disease, or unspecified chronic kidney disease; N18.32 Chronic kidney disease, stage 3b; E66.9 Obesity, unspecified; E89.0 Postprocedural hypothyroidism; G89.4 Chronic pain syndrome; Z66 Do not resuscitate; Z95.0 Presence of cardiac pacemaker; Z68.33 Body mass index [BMI] 33.0-33.9, adult
CPT/HCPCS: 71046; 80048; 80053; 81003; 81015; 83605; 84145; 85025; 85027; 87070; 87077; 87086; 87186; 87502; 87811; 93005; 94640; 96361; 96374; 97163; 97166; 97530; 99285

== ENCOUNTER → 2023-10-24 03:00 | Outpatient (REF) | payer MEDICARE, MEDICAID, SELFPAY ==
[2023-10-24 12:13] LABS: Urine Albumin Negative (Neg - Trace); Urine Bilirubin Negative (Negative); Urine Character Clear (Clear); Urine Color Yellow; Urine Glucose Negative (Negative); Urine Ketone Negative (Negative); Urine Leukocyte 2+ (Negative); Urine Nitrite Negative (Negative); Urine Occult Blood 2+ (Negative); Urine Specific Gravity 1.005 (<1.030); Urine Urobilinogen Negative (Neg - 1+)
[2023-10-24 12:37] LABS: Urine Squamous Cell >30 /LPF (Few)
[2023-10-24 12:39] LABS: Urine Bacteria Moderate (Negative); Urine White Cell 30-40 /HPF (0-5)
== END ==
LOC: OLABN 03:00
PROVIDERS: ATTENDING PHYSICIAN Student in an Organized Health Care Education/Training Program
DX: R82.90 Unspecified abnormal findings in urine (principal)
CPT/HCPCS: 81003; 81015; 87077; 87086; 87186

== ENCOUNTER → 2023-11-20 06:49 | Outpatient (REF) | payer MEDICARE, MEDICAID, SELFPAY ==
[2023-11-20 09:35] LABS: Urine Albumin Trace (Neg - Trace); Urine Bilirubin Negative (Negative); Urine Glucose Negative (Negative); Urine Ketone Negative (Negative); Urine Leukocyte 1+ (Negative); Urine Nitrite Positive (Negative); Urine Occult Blood 1+ (Negative); Urine Urobilinogen Negative (Neg - 1+)
[2023-11-20 09:36] LABS: Urine Character Clear (Clear); Urine Color Yellow
[2023-11-20 10:39] LABS: Urine Bacteria Few (Negative); Urine Red Blood Cell 0-2 /HPF (0-2)
== END ==
LOC: OLABN 06:49
PROVIDERS: ATTENDING PHYSICIAN Student in an Organized Health Care Education/Training Program
DX: T83.511A Infection and inflammatory reaction due to indwelling urethral catheter, initial encounter (principal); N39.0 Urinary tract infection, site not specified
CPT/HCPCS: 81003; 81015; 87086

== ENCOUNTER → 2023-11-21 14:51 | Outpatient (REF) | payer MEDICARE, MEDICAID, SELFPAY ==
[2023-11-21 15:39] LABS: Urine Albumin 1+ (Neg - Trace); Urine Bilirubin Negative (Negative); Urine Character Very Cloudy (Clear); Urine Color Yellow; Urine Glucose Negative (Negative); Urine Ketone Trace (Negative); Urine Leukocyte 2+ (Negative); Urine Nitrite Positive (Negative); Urine Occult Blood 3+ (Negative); Urine Urobilinogen Negative (Neg - 1+)
[2023-11-21 15:59] LABS: Urine Bacteria Many (Negative); Urine Mucus Moderate; Urine White Cell >100 /HPF (0-5)
== END ==
LOC: OLABN 14:51
PROVIDERS: ATTENDING PHYSICIAN Student in an Organized Health Care Education/Training Program
DX: R53.83 Other fatigue (principal); R82.90 Unspecified abnormal findings in urine
CPT/HCPCS: 81003; 81015; 87086

== ENCOUNTER → 2023-12-18 09:50 | Outpatient (REF) | payer MEDICARE, MEDICAID, SELFPAY ==
[2023-12-18 12:38] LABS: Free T3 2.09 pg/ml (2.77-5.27); Free T4 1.09 ng/dl (0.78-2.19)
[2023-12-18 12:51] LABS: TSH 0.19 uIU/ml (0.47-4.68)
== END ==
LOC: OLABN 09:50
PROVIDERS: ATTENDING PHYSICIAN Student in an Organized Health Care Education/Training Program
DX: E03.9 Hypothyroidism, unspecified (principal)
CPT/HCPCS: 36415; 84439; 84443; 84481

== ENCOUNTER → 2023-12-23 19:15 | Outpatient (REF) | payer MEDICARE, MEDICAID, SELFPAY ==
[2023-12-24 11:44] LABS: Urine Albumin Trace (Neg - Trace); Urine Bilirubin Negative (Negative); Urine Character Slightly Cloudy (Clear); Urine Color Yellow; Urine Glucose Negative (Negative); Urine Ketone Negative (Negative); Urine Leukocyte 2+ (Negative); Urine Nitrite Positive (Negative); Urine Occult Blood Negative (Negative); Urine Urobilinogen Negative (Neg - 1+)
[2023-12-24 12:00] LABS: Urine Bacteria Few (Negative); Urine White Cell 30-40 /HPF (0-5)
[2023-12-24 12:01] LABS: Urine Red Blood Cell 0-2 /HPF (0-2)
== END ==
LOC: OLABN 19:15
PROVIDERS: ATTENDING PHYSICIAN Student in an Organized Health Care Education/Training Program
DX: R82.90 Unspecified abnormal findings in urine (principal)
CPT/HCPCS: 81003; 81015; 87086

== ENCOUNTER → 2024-01-27 11:57 | Outpatient (REF) | payer MEDICARE, OTHER, SELFPAY ==
[2024-01-27 17:00] LABS: Free T4 1.45 ng/dl (0.78-2.19)
[2024-01-27 17:14] LABS: TSH 0.23 uIU/ml (0.47-4.68)
== END ==
LOC: OLABN 11:57
PROVIDERS: ATTENDING PHYSICIAN Student in an Organized Health Care Education/Training Program
DX: E03.9 Hypothyroidism, unspecified (principal)
CPT/HCPCS: 36415; 84439; 84443; 84480

== ENCOUNTER → 2024-02-04 11:08 | Outpatient (REF) | payer MEDICARE, OTHER, SELFPAY ==
[2024-02-04 11:25] LABS: % Basophils 0.4 % (0-2); % Eosinophils 2.4 % (0-6); % Lymphocytes 21.3 % (20.5-51.1); % Monocytes 8.4 % (1.7-9.3); % Neutrophils 66.5 % (42.2-75.2); Absolute Eosinophils 0.2 10^3/uL (0-0.7); Absolute Immature Granulocytes 0.1 10^3/uL (0-0.05); Absolute Monocytes 0.8 10^3/uL (0.1-0.6); Absolute Neutrophils 6.2 10^3/uL (1.4-6.5); Hematocrit 28.6 % (37.0-47.0); Hemoglobin 8.7 g/dL (12.0-16.0); Mean Corp Hgb Conc. 30.4 g/dL (33.0-37.0); Mean Corpuscular Hgb 24.2 pg (27.0-31.0); Mean Corpuscular Volume 79.4 fL (81.0-99.0); Mean Platelet Volume 10.3 fL (7.4-10.4); Nucleated Red Blood Cells % 0 %; Platelet Count 176 10^3/uL (130-400); Red Cell Dist. Width 17.2 % (11.5-14.5); White Blood Cell Count 9.4 10^3/uL (4.8-10.8)
[2024-02-04 11:33] LABS: Blood Urea Nitrogen 25 mg/dl (7-17); Calcium 8.3 mg/dl (8.4-10.2); Carbon Dioxide 30 mmol/L (22-30); Chloride 103 mmol/L (98-107); Glucose 82 mg/dl (70-99); Potassium 3.7 mmol/L (3.5-5.1); Sodium 145 mmol/L (135-145); eGFR 45.48
== END ==
LOC: OLABN 11:08
PROVIDERS: ATTENDING PHYSICIAN Student in an Organized Health Care Education/Training Program
DX: I10 Essential (primary) hypertension (principal); N18.32 Chronic kidney disease, stage 3b
CPT/HCPCS: 36415; 80048; 85025

== ENCOUNTER 2024-02-14 11:52 | Inpatient (IN) | payer MEDICARE, OTHER, SELFPAY ==
[2024-02-14 09:15] VITALS: BP 184/86
[2024-02-14 09:19] VITALS: BMI 34.9
--- NOTE | 2024-02-14 09:53 | ED.GENMED ---
History of Present Illness
General
Chief Complaint: Breathing Problem
Source: patient and family (daughter)
Time Seen by Provider: 02/14/24 09:31
History of Present Illness
History of Present Illness:
83-year-old female sent to the emergency room from [facility] for fever, hypoxia and cough. Patient began having symptoms yesterday. She evidently had a x-ray at the senior living which indicated pneumonia. Patient has had
pneumonia in the past. Patient does not routinely use oxygen but has been requiring 3 L of oxygen to maintain her pulse ox. She currently is tolerating oral intake though her fluid intake is not as much is normal.
Past History
Past History
ED Past Medical History: Arrthythmia (SSS), HTN, Hypothyroidism and Other (Chronic idiopathic neuropathy, irritable bowel syndrome, arthritis, neurogenic bladder-self caths)
ED Past Surgical History: Cardiac (pacemaker), Cholecystectomy, Orthopedic and Other (thyroidectomy)
Social History
Tobacco: Non-smoker
Alcohol: None
Drug: None
Personal:
Living: alone
Employment: Not employed
Family History
Family History: Other
Phy Exam
Physical Exam
Physical Exam:
General: Awake, Alert, Oriented X3. No acute distress. Appears chronically ill
Vitals: Hypoxic on room air
Head: Atraumatic
Eyes: Pupils equal, EOMI
Throat: Airway intact, no exudates, dry mucosa
Neck: Trachea midline
Lungs: Expiratory wheezing bilaterally
Heart: Regular rate, no murmurs
Abd: Soft, Nontender, No pulsatile mass
Neuro: Nonfocal
Skin: Warm, dry, no rash
Extremities: pulses equal b/l, no edema
Scores
Heart Failure Risk
Heart Failure Risk Score: Not Applicable
Sepsis
Sepsis Screening
Sepsis Assessment: Sepsis
Sepsis Screen
Sepsis Screen: Sepsis
Date: 02/14/24
Time: 14:39
Course
Orders/Labs/Results
Orders:
Orders
02/14/24 09:34
Electrocardiogram (*1) Urgent
Reason for Study: Other
Other Reason for Exam: Possible Sepsis
Cardiac Monitoring- Treatment ONCE
EKG- Treatment ONCE
IV Insert/Care/Rem.- Treatment PRN
02/14/24 09:36
Basic Metabolic Panel Urgent
C-Reactive Protein Urgent
Comment: ADD ON
Complete Blood Count/With Diff Urgent
Lactic Acid Q4H
Comment: ON ICE, CANCEL 2ND ORDER IF FIRST LACTIC ACID LEVEL <2
TSH Reflex To Free T4 Urgent
Comment: ADD ON
02/14/24 09:38
COVID-19 Antigen Urgent
Source: Nasal Swab
INF RAPID [Influenza A+B Rapid Molecular] Urgent
JUAN PABLO Source: Nasal Swab
Specimen Description:
02/14/24 09:39
Blood Culture Urgent
JUAN PABLO Source: Blood/Venous
Specimen Description:
02/14/24 09:53
Ipratropium/Albuterol Sulfate [Duoneb] 3 ml INH R NOW STA
CR Chest - 2 Views Urgent
Comment:
Reason For Exam: fever, cough, hypoxia
02/14/24 10:24
Potassium Urgent
02/14/24 10:41
Cefepime HCl [Maxipime] 2,000 mg IV NOW STA
02/14/24 11:22
Add On- LAB Urgent
Tests Added?: TSH reflex, CRP
02/14/24 11:36
Admit/Transfer Patient As Directed
Co-Sign Provider:
Level of Care: Inpatient admission
Assign to:: Medical/Surgical
Physician / Group: Jazlyn
Diagnosis: Pneumonia
Reason for Hospitalization: IV antibiotics
Expected length of stay greater than two midnights?: Yes
ELOS- Estimated Length of Stay in days: 3
I certify the patient meets the requirements for IP care: Yes
02/14/24 11:37
PRN Pain Medication Management As Directed
May give lesser potent ordered pain med per pt: Yes
preference::
Protocol:: Medication orders for pain may be administered in a
manner that supports deferring to patient preference
when the pt is:
- Requesting an ordered lesser potent pain medication.
Least to most potent pain medications are defined
as: acetaminophen < NSAID < tramadol < opioids
(morphine, oxycodone, hydromorphone).
- Requesting a lesser dose of the same medication IF
ORDERED.
- Requesting a less intrusive route of administration
if both routes are prescribed by the provider (PO <
IV).
Speech Therapy Eval & Treat Routine
02/14/24 11:38
Code Status As Directed
Resuscitation Status: Do not resuscitate
Reached after discussion with pt or family/Healthcare POA: Yes
DNR Bracelet Application ONCE
02/14/24 11:44
Vancomycin [Vancocin] 2,000 mg 0.9% Sodium Chloride 500 ml [Nss] 500 ml IV NOW
02/14/24 11:46
Sterile Water [Sterile Water For Injection] 10 ml IV NOW STA
02/14/24 12:00
VANCOMYCIN Pharmacy to Dose [VANCOCIN Pharmacy to Dose] 1 each Pharmacy To Prepare [Call Pharmacy To Prepare] 0 ml IV PER PROTOCOL
02/14/24 13:18
Acetaminophen [Tylenol] 650 mg PO Q6HPRN PRN
CefTRIAXone [Rocephin] 2,000 mg IV Q24H
02/14/24 13:18
Legionella Urinary Antigen Routine
JUAN PABLO Source: Urine
Specimen Description:
Strep pneumoniae Antigen Routine
JUAN PABLO Source: Urine
Specimen Description:
Activity As Directed
Activity Level: With Assistance
Hair Catheter [Catheter- Indwelling] As Directed
Reason for insertion: Chronic Hair on Admit
Acapella [Rx Pep / Acapela] [RESP] Routine
Incentive Spirometry [Rx Incentive Spirometry] [RESP] Routine
Frequency: q1h while awake
Ot Eval And Treat Routine
Pt Eval And Treat Routine
Activity Level: With Assistance
DX Deep Vein Thrombosis Video Routine
02/14/24 13:48
Lactic Acid Q4H
Comment: ON ICE, CANCEL 2ND ORDER IF FIRST LACTIC ACID LEVEL <2
02/14/24 14:00
Azithromycin 500 mg/250 ml [Zithromax Infusion] 500 mg in 250 ml IV Q24H
02/14/24 18:00
Enoxaparin Sodium [Lovenox] 40 mg SC QPM
Abnormal Lab Results
02/14/24
09:36
Hgb 9.9 L g/dL
(12.0-16.0)
Hct 33.2 L %
(37.0-47.0)
MCV 76.9 L fL
(81.0-99.0)
MCH 22.9 L pg
(27.0-31.0)
MCHC 29.8 L g/dL
(33.0-37.0)
RDW 17.6 H %
(11.5-14.5)
Abs Immat Gran (auto) 0.1 H 10^3/uL
(0-0.05)
Absolute Neuts (auto) 8.6 H 10^3/uL
(1.4-6.5)
Immature Gran % 0.7 H %
(0-0.5)
Neutrophils % 80.8 H %
(42.2-75.2)
Lymphocytes % 12.1 L %
(20.5-51.1)
Carbon Dioxide 32 H mmol/L
(22-30)
BUN 21 H mg/dl
(7-17)
Creatinine 1.1 H mg/dL
(0.6-1.0)
Glucose 130 H mg/dl
(70-99)
Lactic Acid 2.2 H mmol/L
(0.7-2.0)
C-Reactive Protein 51.90 H mg/L
(0.0-10.00)
02/14/24 09:36
02/14/24 10:24
Vital Signs
Initial and Last Documented VS:
Initial Vital Signs
Temp Pulse Resp BP Pulse Ox
100.9 F H 96 19 184/86 94
02/14/24 09:15 02/14/24 09:15 02/14/24 09:15 02/14/24 09:15 02/14/24 09:15
Last Documented Vital Signs
Temp Pulse Resp BP Pulse Ox
98.1 F 61 17 139/60 98
02/14/24 13:40 02/14/24 13:40 02/14/24 13:40 02/14/24 13:40 02/14/24 13:40
MDM/Problems Addressed
Differential Diagnosis Includes:
Pneumonia, acute bronchitis, COPD exacerbation
MDM/Problems Addressed:
Patient presents with hypoxia, wheezing. Wheezing somewhat improved with a DuoNeb. Chest x-ray shows a right upper lobe infiltrate. Patient resides in a senior living and has history of resistant organism in her urine. Patient also has had
positive MRSA test in the past. Therefore she does not meet criteria for community-acquired pneumonia and requires expanded spectrum coverage at least initially. Patient maintaining pulse ox on 3 L oxygen. Patient is a former smoker likely has
some component of COPD.
Chronic conditions affecting care: DM and HTN
*Radiology
Radiology exam reviewed: preliminary read by ED provider (Right upper lobe infiltrate)
*Pulse Oximetry
Patient hypoxic: yes
*EKG
Interpreted by ED Provider?: Yes
Heart Rate: 86
Rate: normal
Rhythm: sinus and PVC's
Interval: first degree heart block
Ischemia: non-specific ST changes
*Critical Care Educator Interpretation
Rate: normal
Rhythm: sinus and PVC's
*Critical Care Note
Total Time (30-74mins, 75-104mins- exclusive of procedures): Not Applicable
ED Attending Note
-
Portions of this chart may have been created with voice recognition software.� Occasional wrong word or��sound alike� substitutions may have occurred due to the inherent limitations of voice recognition software.
Discharge Plan
Departure
Patient Disposition: Admit
Date of Disposition: 02/14/24
Time of Disposition: 10:47
Admit to: Med/Surg
Presentation/result/management discussed w/ accepting MD/DO: Hospitalist
Condition: Fair
Discharge Problem:
Pneumonia
Interventions
Interventions:
*Risk Screen - Suicide Last Done: 02/14/24 09:20
*General Assessment Last Done: 02/14/24 09:42
*Neglect/Abuse Screening Last Done: 02/14/24 09:20
*ED COVID-19 Vaccine History Last Done: 02/14/24 09:42
*Nursing Disposition Last Done: 02/14/24 13:46
ED- Cardiac Assessment Last Done: 02/14/24 09:44
ED- Pulmonary Assessment Last Done: 02/14/24 09:44
Discharge Date and Time
Discharge Date/Time: 02/14/24 13:15
[2024-02-14 09:57] LABS: % Basophils 0.2 % (0-2); % Eosinophils 1.1 % (0-6); % Immature Granulocytes 0.7 % (0-0.5); % Lymphocytes 12.1 % (20.5-51.1); % Monocytes 5.1 % (1.7-9.3); % Neutrophils 80.8 % (42.2-75.2); Absolute Eosinophils 0.1 10^3/uL (0-0.7); Absolute Immature Granulocytes 0.1 10^3/uL (0-0.05); Absolute Lymphocytes 1.3 10^3/uL (1.2-3.4); Absolute Monocytes 0.5 10^3/uL (0.1-0.6); Absolute Neutrophils 8.6 10^3/uL (1.4-6.5); Hematocrit 33.2 % (37.0-47.0); Hemoglobin 9.9 g/dL (12.0-16.0); Lactic Acid 2.2 mmol/L (0.7-2.0); Mean Corp Hgb Conc. 29.8 g/dL (33.0-37.0); Mean Corpuscular Hgb 22.9 pg (27.0-31.0); Mean Corpuscular Volume 76.9 fL (81.0-99.0); Mean Platelet Volume 9.7 fL (7.4-10.4); Nucleated Red Blood Cells % 0 %; Platelet Count 144 10^3/uL (130-400); Red Blood Cell Count 4.32 10^6/uL (4.20-5.40); Red Cell Dist. Width 17.6 % (11.5-14.5); White Blood Cell Count 10.7 10^3/uL (4.8-10.8)
[2024-02-14 10:02] LABS: Blood Urea Nitrogen 21 mg/dl (7-17); Calcium 8.4 mg/dl (8.4-10.2); Carbon Dioxide 32 mmol/L (22-30); Chloride 101 mmol/L (98-107); Estimated Creatinine Clearance 51 ml/min; Glucose 130 mg/dl (70-99); Sodium 142 mmol/L (135-145); eGFR 50.48
[2024-02-14 10:03] LABS: COVID-19 Antigen Negative (Negative)
[2024-02-14] MEDS: DUONEB 3 ML INH ×3 (10:17→19:16)
[2024-02-14 10:56] LABS: Potassium 3.7 mmol/L (3.5-5.1)
--- NOTE | 2024-02-14 11:44 | HPS.HSE ---
Family Physician
-
Family Physician: Rui Roe DO
Chief Complaint
-
Cough, shortness of breath
History of Present Illness
83-year-old female resident of [facility], started developing cough and shortness of breath on Friday. Had chest x-ray as an outpatient yesterday showing pneumonia. Referred to the hospital this morning. Daughter is an
employee here at [employer]. Daughter provided most of the history.
Medical History
Past Medical History
Past Medical History: Reports Other
Additional Past Medical History:
Neurogenic bladder, chronic Hair catheter
Sick sinus syndrome
Hypothyroidism
Essential hypertension
Peripheral neuropathy
IBS
Chronic anemia
Severe osteoarthritis
Anxiety/depression
Dysphagia
Aspiration pneumonia
Past Surgical History: Reports Cholecystectomy, Orthopedic and Other
Additional Past Surgical History:
Permanent pacemaker
Thyroidectomy
Social History
Tobacco: Non-smoker
Alcohol: None
Drug: None
Living: [facility]
Family History
Family History: Not pertinent
Allergies / Home Medications
Allergies reflects when Allergies were last updated in [facility].
Home Medications with original date entered in [facility]
Allergy/Medication List:
Allergies
Allergy/AdvReac Type Severity Reaction Status Date / Time
Sulfa (Sulfonamide Allergy Rash Verified 12/12/22 11:47
Antibiotics)
Home Medications
dicyclomine 10 mg capsule 10 mg PO TIDPRN PRN IBS 08/19/16
diltiazem HCl 300 mg capsule,extended release 24 hr 300 mg PO DAILY@0830 Heart disease/condition 08/19/16
metoprolol tartrate 100 mg tablet 100 mg PO BID@0830,1830 Blood pressure 01/17/21
duloxetine 30 mg capsule,delayed release 30 mg PO DAILY@1830 Mental Health/Anxiety 12/03/21
duloxetine 60 mg capsule,delayed release 60 mg PO DAILY@0830 Mental Health/Anxiety 12/03/21
fluticasone fur. 200 mcg-umeclid 62.5 mcg-vilant 25 mcg inhalat.powder (Trelegy Ellipta) 1 inh inhalation R DAILY@0830 Lung/breathing issues 12/03/21
furosemide 40 mg tablet 40 mg PO DAILY@0830 Fluid retention/Swelling 12/03/21
losartan 50 mg tablet 50 mg PO DAILY@0830 Blood pressure 12/03/21
bisacodyl 10 mg rectal suppository (Dulcolax (bisacodyl)) 10 mg TN DAILYPRN PRN if no BM/MOM ineffective 01/01/22
acetaminophen 325 mg tablet 650 mg PO Q4HPRN PRN mild pain/fever>100.4 07/09/22
lidocaine 4 % topical patch 1 patch topical DAILY@0630 left shoulder 07/09/22
mirtazapine 30 mg tablet 30 mg PO DAILY@2029 Sleep 07/09/22
cyanocobalamin (vitamin B-12) 1,000 mcg sublingual tablet 1,000 mcg sublingual QMONTH@30 Fri of each month 12/12/22
diclofenac sodium 1 % topical gel 4 g topical Q6HPRN PRN apply to left shoulder 12/12/22
loperamide 2 mg tablet 2 mg PO Q6HPRN PRN diarrhea 12/12/22
ipratropium 0.5 mg-albuterol 3 mg (2.5 mg base)/3 mL nebulization soln 3 ml inhalation R TID@0830,1430,2030 Lung/Breathing Issues 01/14/23
Probiotic Colon Support 1 cap PO DAILY@0830 Gastrointestinal Issue 07/31/23
aspirin 81 mg chewable tablet 81 mg PO DAILY@0830 Blood Clot Prevention/Tx 07/31/23
calcium carbonate 500 mg PO DAILYPRN PRN acid indigestion 07/31/23
cholecalciferol (vitamin D3) 1,250 mcg (50,000 unit) tablet 1,250 mcg PO QMONTH@0830 Fri of the month 07/31/23
diclofenac sodium 1 % topical gel 2 g topical Q6HPRN PRN left knee pain 07/31/23
ipratropium 0.5 mg-albuterol 3 mg (2.5 mg base)/3 mL nebulization soln 3 ml inhalation R Q6HPRN PRN sob 07/31/23
omeprazole 20 mg tablet,delayed release 20 mg PO BID@0630,1630 Gastrointestinal Issue 07/31/23
ropinirole 3 mg tablet 3 mg PO DAILY@1830 Mental Health/Anxiety 07/31/23
triamcinolone acetonide 0.1 % dental paste 1 applic dental QIDPRN PRN canker sores 07/31/23
alprazolam 0.25 mg tablet (Xanax) 0.25 mg PO BIDPRN PRN anxiety #10 tabs 08/04/23
carbamide peroxide 6.5 % ear drops (Debrox) 4 drp LEFT EAR HS 02/14/24
carboxymethylcellulose sodium 0.5 % eye drops in a dropperette (Refresh Plus) 2 drp BOTH EYES QIDPRN PRN dry eye 02/14/24
cranberry extract 425 mg capsule 425 mg PO DAILY@0830 02/14/24
dextromethorphan-guaifenesin 10 mg-100 mg/5 mL oral liquid (Diabetic Tussin DM) 30 ml PO Q6 02/14/24
lactulose 10 gram/15 mL oral solution 20 g PO HSPRN PRN constipation 02/14/24
levothyroxine 125 mcg tablet 125 mcg PO DAILY@0630 02/14/24
melatonin 3 mg tablet 3 mg PO HS 02/14/24
oxycodone-acetaminophen 5 mg-325 mg tablet (Percocet) 1 tab PO Q4 Pain 02/14/24
pregabalin 75 mg capsule 75 mg PO TID@0830,1330,2030 02/14/24
sennosides 8.6 mg-docusate sodium 50 mg tablet (Senna-S) 2 tab-cap PO DAILY@18302/14/24
sodium chloride 0.65 % nasal spray aerosol (Deep Sea Nasal) 1 spray intranasal QIDPRN PRN congestion/dryness 02/14/24
Review of Systems
-
History Source: Patient and Family
A 12 point ROS was completed and negative except as noted: Yes
Respiratory: Reports Cough and Trouble Breathing
Physical Exam
Vital Signs
Vital Signs
Temp Pulse Resp BP Pulse Ox
100.9 F H 94 21 184/86 96
02/14/24 09:15 02/14/24 10:00 02/14/24 09:30 02/14/24 09:15 02/14/24 10:00
Physical Exam
General: Well Developed, Well Nourished, No Apparent Distress and Comfortable
HEENT: NormoCephalic, Anicteric and Moist mucous membranes
Respiratory: Rhonchi
Cardiac: S1/S2 and Regular Rhythm
Breast: Deferred by me
GI: Soft, Non Tender and Non Distended
Genito-urinary: Deferred by me
Musculoskeletal: No Clubbing, No Cyanosis and No Edema
Skin: Warm and Dry
Neuro: Awake and Alert
Hematologic/Lymphatic: No Lymphadenopathy
Psych: Calm
Laboratory Results
-
02/14/24 09:36
02/14/24 10:24
Laboratory Results
Lactic Acid 2.2 mmol/L (0.7-2.0) H 02/14/24 09:36
Total Bilirubin Cancelled 02/14/24 09:36
AST Cancelled 02/14/24 09:36
ALT Cancelled 02/14/24 09:36
Alkaline Phosphatase Cancelled 02/14/24 09:36
Impression/Plan
-
Acute hypoxic respiratory insufficiency -due to pneumonia. Requiring 2 L nasal cannula oxygen currently.
Sepsis due to pneumonia -differential diagnosis includes aspiration pneumonia versus community-acquired pneumonia. Chest x-ray with moderate right upper lobe pneumonia. Moderate chronic scarring in the right middle lobe and lingula. Mild lactic
acidosis noted.
Admit to MedSurg. Continue antibiotics, ceftriaxone and azithromycin. Check urinary antigens. COVID and influenza negative.
Acapella, incentive spirometry.
Essential hypertension -blood pressure elevated. Resume home medications.
Hypothyroidism -resume Synthroid.
Peripheral neuropathy
IBS
Chronic anemia -stable.
Chronic pain syndrome/chronic opiate dependence -daughter states she takes Percocet 5 mg tablets every 4 hours [id number]. Also on Lyrica.
Chronic neurogenic bladder -chronic Hair catheter. Last changed at some point this month according to patient.
Obesity due to excess calories
DNR -confirmed with patient and daughter.
[2024-02-14] MEDS: MAXIPIME 2000 MG IV (11:50)
[2024-02-14] MEDS: STERILE WATER FOR INJECTION 10 ML IV (11:50)
[2024-02-14 11:57] VITALS: BP 101/45
[2024-02-14 12:00] VITALS: BP 104/59
[2024-02-14] MEDS: VANCOCIN 540 MG IV (12:00)
--- NOTE | 2024-02-14 13:19 | PTOTSP ---
Speech Therapy
Presentation: Patient's speech appeared to be WNL, patient's voice appeared to be hoarse which has been going on for about ~[address]: 01/03/23 VSE: ANY COMMODITY BU[employer]ER recommended regular consistency solids and thin liquids with preference for softer solids; see note for details.
Swallowing Function: ANY COMMODITY BUYER observed patient with several bites of crackers and sips of thin liquids. Patient demonstrated intermittent coughing in the absence and presence of PO. ANY COMMODITY BUYER educated patient and daughter on aspiration risks. Both patient and
daughter verbalized an understanding and accepted all risks.
Given the above information, ANY COMMODITY BUYER will continue to follow to ensure tolerance. If clinically indicated, may consider VSE; pending acceptance of recommendations.
Recommendations:
1) trial of regular consistency solids and thin liquids (preference for softer solids)
2) Aspiration precautions
3) Consideration of VSE; if clinically indicated
4) Medications as tolerated
Plan: ANY COMMODITY BUYER will continue to follow; pending hospitalization.
[2024-02-14 13:26] LABS: TSH Reflex To Free T4 0.74 uIU/ml (0.47-4.68)
[2024-02-14 13:40] VITALS: BP 139/60
[2024-02-14 14:06] LABS: Lactic Acid 1.6 mmol/L (0.7-2.0)
[2024-02-14 15:00] VITALS: BP 146/70
[2024-02-14] MEDS: LYRICA 75 MG PO ×2 (16:45→22:39)
[2024-02-14] MEDS: PERCOCET 5/325 1 TABLET PO ×2 (16:45→22:38)
[2024-02-14] MEDS: STERILE WATER FOR INJECTION 20 ML IV (17:45)
[2024-02-14] MEDS: ROCEPHIN 2000 MG IV (17:45)
[2024-02-14] MEDS: ZITHROMAX INFUSION 250 IV (17:46)
[2024-02-14] MEDS: LOVENOX 40 MG SC (17:46)
[2024-02-14] MEDS: SENOKOT-S 2 TABLET PO (17:52)
[2024-02-14] MEDS: LOPRESSOR 100 MG PO (17:52)
[2024-02-14] MEDS: REQUIP 1 MG PO (17:52)
[2024-02-14] MEDS: REQUIP 2 MG PO (17:52)
[2024-02-14] MEDS: CYMBALTA DELAYED RELEASE 30 MG PO (17:58)
[2024-02-14] MEDS: XANAX 0.25 MG PO (18:17)
[2024-02-14] MEDS: REMERON 30 MG PO (22:38)
[2024-02-14] MEDS: MELATONIN 3 MG PO (22:39)
[2024-02-14] MEDS: OCEAN, SALINE MIST 1 SPRAYS NASAL (22:40)
[2024-02-14 22:49] VITALS: BP 124/74
[2024-02-15] MEDS: PERCOCET 5/325 PO ×4 (01:45→23:33)
[2024-02-15] MEDS: SYNTHROID 125 MCG PO (05:15)
[2024-02-15 07:30] VITALS: BP 165/83
[2024-02-15] MEDS: DUONEB 3 ML INH ×3 (07:38→19:27)
[2024-02-15] MEDS: SYMBICORT 160/4.5 MCG INHALER 2 PUFF INH ×2 (07:56→19:27)
[2024-02-15] MEDS: LASIX 40 MG PO (08:09)
[2024-02-15] MEDS: PERCOCET 5/325 1 TABLET PO ×3 (08:09→15:48)
[2024-02-15] MEDS: LYRICA 75 MG PO ×3 (08:10→22:02)
[2024-02-15] MEDS: COZAAR 50 MG PO (08:10)
[2024-02-15] MEDS: LOW STRENGTH ASPIRIN 81 MG PO (08:10)
[2024-02-15] MEDS: CARDIZEM CD 300 MG PO (08:10)
[2024-02-15] MEDS: CYMBALTA DELAYED RELEASE 60 MG PO (08:16)
[2024-02-15 08:40] VITALS: BP 162/95; PULSE 91; O2SAT 96
[2024-02-15 09:57] VITALS: BP 162/95; O2SAT 95
[2024-02-15] MEDS: LOPRESSOR 100 MG PO ×2 (10:14→17:39)
[2024-02-15 10:23] VITALS: BP 120/65
--- NOTE | 2024-02-15 10:38 | W.PN.HOSP.TC ---
Today's Communication/Plan
-
Continue antibiotics
Add steroids
Assessment / Plan
Assessment / Plan
Gen-AAOx3, NAD
HEENT-NC, AT, anicteric, clear oral mm
Neck-supple
CV-reg, no M, +S1/S2
Lungs-bilateral rhonchi and wheezes
Abd-soft, NT, ND
Ext-no edema
Musculoskeletal-no cyanosis, clubbing
Skin-warm and dry
Neuro-grossly non-focal
Psych-calm, cooperative
Acute hypoxic respiratory insufficiency -due to pneumonia. Requiring 2 L nasal cannula oxygen currently.
Sepsis due to pneumonia -differential diagnosis includes aspiration pneumonia versus community-acquired pneumonia. Chest x-ray with moderate right upper lobe pneumonia. Moderate chronic scarring in the right middle lobe and lingula. Mild lactic
acidosis noted.
Continue antibiotics. Leaning more towards community-acquired pneumonia as she did okay with speech therapy evaluation.
Will give a dose of steroids today given mild wheezing.
Essential hypertension -stable.
Hypothyroidism -resume Synthroid.
Peripheral neuropathy
IBS
Chronic anemia -stable.
Chronic pain syndrome/chronic opiate dependence -daughter states she takes Percocet 5 mg tablets every 4 hours [id number]. Also on Lyrica.
Chronic neurogenic bladder -chronic Hair catheter. Last changed at some point this month according to patient.
Obesity due to excess calories
DNR -confirmed with patient and daughter.
Dispo -back to [facility] when medically stable.
Anticipated Discharge: 24 - 48 hours
Subjective/Interval History
-
Date of Service: February 15, 2024
Patient seen and examined. No complaints.
Objective Data
-
Vital Signs:
Vital Signs
Temp Pulse Resp BP Pulse Ox
97.1 F 82 18 120/65 96
02/15/24 10:23 02/15/24 10:23 02/15/24 10:23 02/15/24 10:23 02/15/24 10:23
I&O
02/14/24 02/15/24 02/16/24
06:59 06:59 06:59
Intake Total 320 / 320 480 / 480
Output Total 900 / 900 600 / 600
Balance -580 / -580 -120 / -120
Review of Systems
-
History Source: Patient
All other systems: Reviewed and negative
[2024-02-15] MEDS: DELTASONE 40 MG PO (11:40)
--- NOTE | 2024-02-15 12:02 | CM ---
met with patient at bedside.she is a L[facility] resident [facility].she is mostly [place] bound but can stand/pivot [facility] or ,can use walker short distances..she needs A bathing/grooming and with adl.
PCP:dr adria miller
PMH: sss sp ppm,copd,htn,hypothyroid,mrsa,former smokeribs,neurogenc bladder-has chronic klein catheter,oa,anxiety,depression
patient is adm with pna on iv rocephin,iv zithromax,on 3 liters nc o2-no chronic oxygen,nebs.referral sent to [facility] via [facility].patient will return to [facility] when stable for dc.
[2024-02-15] MEDS: ROCEPHIN 2000 MG IV (15:48)
[2024-02-15] MEDS: STERILE WATER FOR INJECTION 20 ML IV (15:48)
[2024-02-15 15:55] VITALS: BP 132/64
[2024-02-15] MEDS: XANAX 0.25 MG PO (15:56)
[2024-02-15] MEDS: SENOKOT-S 2 TABLET PO (17:38)
[2024-02-15] MEDS: CYMBALTA DELAYED RELEASE 30 MG PO (17:38)
[2024-02-15] MEDS: REQUIP 1 MG PO (17:38)
[2024-02-15] MEDS: LOVENOX 40 MG SC (17:45)
[2024-02-15] MEDS: ZITHROMAX INFUSION 250 IV (17:45)
[2024-02-15] MEDS: REQUIP 2 MG PO (18:01)
[2024-02-15] MEDS: REMERON 30 MG PO (22:01)
[2024-02-15] MEDS: MELATONIN 3 MG PO (22:01)
[2024-02-15 23:20] VITALS: BP 116/80
[2024-02-16] MEDS: PERCOCET 5/325 PO (04:19)
[2024-02-16] MEDS: SYNTHROID 125 MCG PO (05:42)
[2024-02-16 07:29] VITALS: BP 161/82
[2024-02-16] MEDS: SYMBICORT 160/4.5 MCG INHALER 2 PUFF INH ×2 (07:43→19:45)
[2024-02-16] MEDS: DUONEB 3 ML INH ×3 (07:43→19:46)
[2024-02-16] MEDS: PERCOCET 5/325 1 TABLET PO ×4 (08:11→20:23)
[2024-02-16] MEDS: XANAX 0.25 MG PO (08:12)
[2024-02-16] MEDS: CYMBALTA DELAYED RELEASE 60 MG PO (08:23)
[2024-02-16] MEDS: COZAAR 50 MG PO (08:23)
[2024-02-16] MEDS: CARDIZEM CD 300 MG PO (08:23)
[2024-02-16] MEDS: LYRICA 75 MG PO ×3 (08:24→20:23)
[2024-02-16] MEDS: LOPRESSOR 100 MG PO ×2 (08:24→18:09)
[2024-02-16] MEDS: LASIX 40 MG PO (08:24)
[2024-02-16] MEDS: LOW STRENGTH ASPIRIN 81 MG PO (08:24)
[2024-02-16 08:39] LABS: % Basophils 0.4 % (0-2); % Eosinophils 0.4 % (0-6); % Lymphocytes 20.6 % (20.5-51.1); % Monocytes 4.3 % (1.7-9.3); % Neutrophils 72.3 % (42.2-75.2); Absolute Immature Granulocytes 0.2 10^3/uL (0-0.05); Absolute Lymphocytes 2.2 10^3/uL (1.2-3.4); Absolute Monocytes 0.5 10^3/uL (0.1-0.6); Absolute Neutrophils 7.7 10^3/uL (1.4-6.5); Hematocrit 32.4 % (37.0-47.0); Hemoglobin 9.9 g/dL (12.0-16.0); Mean Corp Hgb Conc. 30.6 g/dL (33.0-37.0); Mean Corpuscular Hgb 23.2 pg (27.0-31.0); Mean Corpuscular Volume 75.9 fL (81.0-99.0); Mean Platelet Volume 9.8 fL (7.4-10.4); Nucleated Red Blood Cells % 0 %; Platelet Count 170 10^3/uL (130-400); Red Blood Cell Count 4.27 10^6/uL (4.20-5.40); Red Cell Dist. Width 17.5 % (11.5-14.5); White Blood Cell Count 10.6 10^3/uL (4.8-10.8)
[2024-02-16 09:01] LABS: Blood Urea Nitrogen 22 mg/dl (7-17); Calcium 9.4 mg/dl (8.4-10.2); Carbon Dioxide 30 mmol/L (22-30); Chloride 103 mmol/L (98-107); Estimated Creatinine Clearance 51 ml/min; Glucose 144 mg/dl (70-99); Potassium 4.1 mmol/L (3.5-5.1); Sodium 144 mmol/L (135-145); eGFR 50.48
[2024-02-16] MEDS: DECADRON 4 MG IV (12:07)
[2024-02-16] MEDS: PROTONIX 40 MG PO (12:08)
--- NOTE | 2024-02-16 12:29 | W.PN.HOSP.TC ---
Addendum entered and electronically signed by Bobby Snyder MD 02/17/24 08:14:
DISREGARD IVC FILTER ADDENDUM IT WAS DOCUMENTED IN ERROR. PATIENT IS NOT GETTING ANY IVC FILTER.
Addendum entered and electronically signed by Bobby Snyder MD 02/16/24 15:38:
CODE STATUS discussed with patient and son, wants DNR. CODE STATUS changed. I and pulmonary both spoke with patient and her family regarding high risk of bleeding with eliquis. Plan for IVC filter tomorrow. IR consulted.
Original Note:
Today's Communication/Plan
-
Monitor vital signs see plan
Start Decadron
Continue with antibiotics
PT/OT
Assessment / Plan
Assessment / Plan
Gen-AAOx3, NAD
HEENT-NC, AT, anicteric, clear oral mm
Neck-supple
CV-reg, no M, +S1/S2
Lungs-bilateral rhonchi and wheezes
Abd-soft, NT, ND
Ext-no edema
Musculoskeletal-no cyanosis, clubbing
Skin-warm and dry
Neuro-grossly non-focal
Psych-calm, cooperative
Acute hypoxic respiratory insufficiency -due to pneumonia. Requiring 2 L nasal cannula oxygen currently.
Sepsis due to pneumonia -differential diagnosis includes aspiration pneumonia versus community-acquired pneumonia. Chest x-ray with moderate right upper lobe pneumonia. Moderate chronic scarring in the right middle lobe and lingula. Mild lactic
acidosis noted.
Continue antibiotics. Leaning more towards community-acquired pneumonia as she did okay with speech therapy evaluation.
Mild wheezing on exam, start Decadron
Essential hypertension -stable.
Hypothyroidism -resume Synthroid.
Peripheral neuropathy
IBS
Chronic anemia -stable.
Chronic pain syndrome/chronic opiate dependence -daughter states she takes Percocet 5 mg tablets every 4 hours [id number]. Also on Lyrica.
Chronic neurogenic bladder -chronic Hair catheter. Last changed at some point this month according to patient.
Obesity due to excess calories
DNR -confirmed with patient and daughter.
Dispo -back to [facility] when medically stable.
Anticipated Discharge: 24 - 48 hours
Subjective/Interval History
-
Date of Service: February 16, 2024
Denies pain
Objective Data
-
Labs:
Laboratory Results
02/16/24
08:25
WBC 10.6
Hgb 9.9 L
Hct 32.4 L
Plt Count 170
Sodium 144
Potassium 4.1
Chloride 103
Carbon Dioxide 30
BUN 22 H
Creatinine 1.1 H
Glucose 144 H
Calcium 9.4
Vital Signs:
Vital Signs
Temp Pulse Resp BP Pulse Ox
98.5 F 90 16 151/69 93
02/16/24 07:29 02/16/24 08:23 02/16/24 07:44 02/16/24 08:23 02/16/24 07:44
I&O
02/15/24 02/16/24 02/17/24
06:59 06:59 06:59
Intake Total 320 / 320 1360 / 1360
Output Total 900 / 900 1650 / 1650
Balance -580 / -580 -290 / -290
[2024-02-16 15:05] VITALS: BP 146/60
[2024-02-16] MEDS: LIDOCAINE 4% PATCH 1 PATCH TOPICAL (16:28)
[2024-02-16] MEDS: ROCEPHIN 2000 MG IV (16:29)
[2024-02-16] MEDS: STERILE WATER FOR INJECTION 20 ML IV (16:29)
[2024-02-16] MEDS: LOVENOX 40 MG SC (18:08)
[2024-02-16] MEDS: REQUIP 1 MG PO (18:09)
[2024-02-16] MEDS: CYMBALTA DELAYED RELEASE 30 MG PO (18:09)
[2024-02-16] MEDS: ZITHROMAX 500 MG PO (18:09)
[2024-02-16] MEDS: SENOKOT-S 2 TABLET PO (18:10)
[2024-02-16] MEDS: REQUIP 2 MG PO (18:10)
[2024-02-16] MEDS: REMERON 30 MG PO (20:24)
[2024-02-16] MEDS: MELATONIN 3 MG PO (21:53)
[2024-02-16 23:25] VITALS: BP 158/84
[2024-02-17] MEDS: PERCOCET 5/325 1 TABLET PO ×6 (00:36→21:27)
[2024-02-17] MEDS: DECADRON 4 MG IV ×3 (00:36→22:50)
[2024-02-17] MEDS: SYNTHROID 125 MCG PO (05:59)
[2024-02-17] MEDS: LIDOCAINE 4% PATCH 1 PATCH TOPICAL (05:59)
[2024-02-17 06:21] VITALS: BMI 33.8
[2024-02-17 06:21] LABS: % Basophils 0.3 % (0-2); % Immature Granulocytes 2.8 % (0-0.5); % Lymphocytes 12.5 % (20.5-51.1); % Monocytes 1.7 % (1.7-9.3); % Neutrophils 82.7 % (42.2-75.2); Absolute Immature Granulocytes 0.2 10^3/uL (0-0.05); Absolute Lymphocytes 0.9 10^3/uL (1.2-3.4); Absolute Monocytes 0.1 10^3/uL (0.1-0.6); Hematocrit 32.3 % (37.0-47.0); Hemoglobin 9.8 g/dL (12.0-16.0); Mean Corp Hgb Conc. 30.3 g/dL (33.0-37.0); Mean Corpuscular Volume 75.6 fL (81.0-99.0); Mean Platelet Volume 9.6 fL (7.4-10.4); Nucleated Red Blood Cells % 0 %; Platelet Count 183 10^3/uL (130-400); Red Blood Cell Count 4.27 10^6/uL (4.20-5.40); Red Cell Dist. Width 17.3 % (11.5-14.5); White Blood Cell Count 7.3 10^3/uL (4.8-10.8)
[2024-02-17 06:55] LABS: Blood Urea Nitrogen 28 mg/dl (7-17); Calcium 9.1 mg/dl (8.4-10.2); Carbon Dioxide 29 mmol/L (22-30); Chloride 102 mmol/L (98-107); Estimated Creatinine Clearance 55 ml/min; Glucose 124 mg/dl (70-99); Potassium 4.7 mmol/L (3.5-5.1); Sodium 143 mmol/L (135-145)
[2024-02-17 07:36] VITALS: BP 159/88
[2024-02-17] MEDS: SYMBICORT 160/4.5 MCG INHALER 2 PUFF INH ×2 (07:41→19:26)
[2024-02-17] MEDS: PROTONIX 40 MG PO (07:42)
[2024-02-17] MEDS: DUONEB 3 ML INH ×3 (07:42→19:26)
[2024-02-17] MEDS: LOPRESSOR 100 MG PO ×2 (07:43→17:33)
[2024-02-17] MEDS: CYMBALTA DELAYED RELEASE 60 MG PO (07:48)
[2024-02-17] MEDS: LASIX 40 MG PO (07:48)
[2024-02-17] MEDS: CARDIZEM CD 300 MG PO (07:48)
[2024-02-17] MEDS: COZAAR 50 MG PO (07:48)
[2024-02-17] MEDS: LOW STRENGTH ASPIRIN 81 MG PO (07:48)
[2024-02-17] MEDS: LYRICA 75 MG PO ×3 (07:50→21:36)
[2024-02-17 10:24] VITALS: BP 116/75
--- NOTE | 2024-02-17 11:05 | W.PN.HOSP.TC ---
Addendum entered and electronically signed by Bobby Snyder MD 02/17/24 13:06:
Patient is still using oxygen on and off. Will monitor patient today and possible discharge tomorrow
Original Note:
Today's Communication/Plan
-
Monitor vital signs see plan
Discharged today with prednisone taper
continue antibiotics
On room air
Discussed with daughter over the phone
Time of discharge 38 minutes
Assessment / Plan
Assessment / Plan
Gen-AAOx3, NAD
HEENT-NC, AT, anicteric, clear oral mm
Neck-supple
CV-reg, no M, +S1/S2
Lungs-bilateral rhonchi and wheezes
Abd-soft, NT, ND
Ext-no edema
Musculoskeletal-no cyanosis, clubbing
Skin-warm and dry
Neuro-grossly non-focal
Psych-calm, cooperative
Acute hypoxic respiratory insufficiency -due to pneumonia. Now on room air and satting greater than 94%
Sepsis due to pneumonia -differential diagnosis includes aspiration pneumonia versus community-acquired pneumonia. Chest x-ray with moderate right upper lobe pneumonia. Moderate chronic scarring in the right middle lobe and lingula. Mild lactic
acidosis noted.
Continue antibiotics. Leaning more towards community-acquired pneumonia as she did okay with speech therapy evaluation.
Mild wheezing on exam, started Decadron; transition to prednisone with taper on discharge
Essential hypertension -stable.
Hypothyroidism -resume Synthroid.
Peripheral neuropathy
IBS
Chronic anemia -stable.
Chronic pain syndrome/chronic opiate dependence -daughter states she takes Percocet 5 mg tablets every 4 hours [id number]. Also on Lyrica.
Chronic neurogenic bladder -chronic Hair catheter. Last changed at some point this month according to patient.
Obesity due to excess calories
DNR -confirmed with patient and daughter.
[facility]po -[facility] when medically [facility].
Anticipated Discharge: Today
Subjective/Interval History
-
Date of Service: February 17, 2024
denies pain
Objective Data
-
Labs:
Laboratory Results
02/17/24
06:02
WBC 7.3
Hgb 9.8 L
Hct 32.3 L
Plt Count 183
Sodium 143
Potassium 4.7
Chloride 102
Carbon Dioxide 29
BUN 28 H
Creatinine 1.0
Glucose 124 H
Calcium 9.1
Vital Signs:
Vital Signs
Temp Pulse Resp BP Pulse Ox
97.6 F 72 16 116/75 96
02/17/24 07:36 02/17/24 10:24 02/17/24 07:48 02/17/24 10:24 02/17/24 08:27
I&O
02/16/24 02/17/24 02/18/24
06:59 06:59 06:59
Intake Total 1360 / 1360 750 / 750
Output Total 1650 / 1650 1450 / 1450 275 / 275
Balance -290 / -290 -700 / -700 -275 / -275
--- NOTE | 2024-02-17 11:18 | W.DCSUMMARY ---
Discharge Summary
Discharge Data
Date of Admission: 02/14/24
Date of Discharge: 02/19/24
-
Pending Results: No
Hospital Course
83-year-old female with past medical history of hypertension, hypothyroidism, peripheral neuropathy, IBS, chronic anemia, chronic pain syndrome/chronic opioid dependence, chronic neurogenic bladder, obesity came to the hospital with acute hypoxic
respiratory insufficiency secondary to pneumonia. Patient was initially started on IV antibiotics which was later transitioned to p.o. antibiotics prior to discharge. She also had some wheezing on this hospitalization so she was started on
steroids which were later transitioned to prednisone with taper. She was also seen by speech therapy who was okay with patient getting regular diet. Once her symptoms continue to improve, she was then discharged back to [facility] with instructions
to follow-up with all her physicians outpatient.
Discharge Plan
-
Patient Disposition: Other
Discharge Diagnosis/Procedures: Acute hypoxic respiratory insufficiency secondary to community-acquired pneumonia
Diet: As tolerated
Activity: With assistance and As tolerated
Driving Restrictions: Not until seen by your Dr
Bathing Restrictions: None
Referrals:
Rui Roe DO [Family Provider] - in less than 1 week
Prescriptions:
New
pantoprazole 40 mg Tablet,Delayed Release (Dr/Ec)
40 mg PO DAILY Qty: 30 0RF
cefdinir 300 mg capsule
300 mg PO BID 5 Days Qty: 10 0RF
prednisone 10 mg Tablet
See Rx Instructions .ROUTE .COMPLEX Qty: 30 0RF
Rx Instructions:
Take By Mouth:
40 mg daily x3 days, 30 mg daily x3 days,
20 mg daily x3 days, 10 mg daily x3 days.
azithromycin 500 mg tablet
500 mg PO DAILY 5 Days Qty: 5 0RF
Continued
metoprolol tartrate 100 MG tablet
100 mg PO BID@0830,1830
losartan 50 mg Tablet
50 mg PO DAILY@0830
Trelegy Ellipta 200-62.5-25 mcg Blister With Device
1 inh INHALATION R DAILY@829
furosemide 40 MG tablet
40 mg PO DAILY@829
duloxetine 30 MG capsule,delayed release(DR/EC)
30 mg PO DAILY@1829
duloxetine 60 MG capsule,delayed release(DR/EC)
60 mg PO DAILY@829
bisacodyl [Dulcolax (bisacodyl)] 10 mg Suppository
10 mg MO DAILYPRN PRN (Reason: if no BM/MOM ineffective)
lidocaine 4 % Adhesive Patch,Medicated
1 patch TOPICAL DAILY@629
Patient Comments:
07/31/2023, 1 patch to left shoulder and 1 patch to left knee.
mirtazapine 30 mg Tablet
30 mg PO DAILY@2029
acetaminophen 325 MG tablet
650 mg PO Q4HPRN MDD 3000 mg PRN (Reason: mild pain/fever>100.4)
loperamide 2 mg Tablet
2 mg PO Q6HPRN PRN (Reason: diarrhea)
cyanocobalamin (vitamin B-12) 1,000 mcg Tablet, Sublingual
1,000 mcg SUBLINGUAL QMONTH@829
diclofenac sodium 1 % Gel
4 g TOPICAL Q6HPRN PRN (Reason: apply to left shoulder)
ipratropium-albuterol 0.5 mg-3 mg(2.5 mg base)/3 mL solution for nebulization
3 ml INHALATION R TID@829,1429,2029
aspirin 81 mg Tablet,Chewable
81 mg PO DAILY@829
ipratropium-albuterol 0.5 mg-3 mg(2.5 mg base)/3 mL Solution For Nebulization
3 ml INHALATION R Q6HPRN PRN (Reason: sob)
ropinirole 3 mg Tablet
3 mg PO DAILY@1829
triamcinolone acetonide 0.1 % Paste
1 applic DENTAL QIDPRN PRN (Reason: canker sores)
calcium carbonate 500 mg calcium (1,250 mg) Tablet,Chewable
500 mg PO DAILYPRN PRN (Reason: acid indigestion)
diclofenac sodium 1 % Gel
2 g TOPICAL Q6HPRN PRN (Reason: left knee pain)
omeprazole 20 mg Tablet,Delayed Release (Dr/Ec)
20 mg PO BID@0630,1630
cholecalciferol (vitamin D3) 1,250 mcg (50,000 unit) Tablet
1,250 mcg PO QMONTH@0830
Probiotic Colon Support
1 cap PO DAILY@0830
alprazolam [Xanax] 0.25 mg Tablet
0.25 mg PO BIDPRN PRN (Reason: anxiety) Qty: 10 0RF
cranberry extract 425 mg Capsule
425 mg PO DAILY@0830
dextromethorphan-guaifenesin [Diabetic Tussin DM] 10-100 mg/5 mL Liquid
30 ml PO Q6
Rx Instructions:
@ 0000, 0600, 1200, 1800
sennosides-docusate sodium [Senna-S] 8.6-50 mg Tablet
2 tab-cap PO DAILY@1830
melatonin 3 mg Tablet
3 mg PO HS
levothyroxine 125 mcg Tablet
125 mcg PO DAILY@0630
Debrox 6.5 % Drops
4 drp LEFT EAR HS
carboxymethylcellulose sodium [Refresh Plus] 0.5 % Dropperette
2 drp BOTH EYES QIDPRN PRN (Reason: dry eye)
Deep Sea Nasal 0.65 % Aerosol,Isleta
1 spray INTRANASAL QIDPRN PRN (Reason: congestion/dryness)
lactulose 10 gram/15 mL solution
20 g PO HSPRN PRN (Reason: constipation)
pregabalin 75 mg capsule
75 mg PO TID@0830,1330,2030
oxycodone-acetaminophen [Percocet] 5-325 mg tablet
1 tab PO Q4
Rx Instructions:
07/31/2023, @0030,0430,0830,1230,1630,2030.
diltiazem HCl 300 MG capsule,extended release 24hr
300 mg PO DAILY@0830
dicyclomine 10 MG capsule
10 mg PO TIDPRN PRN (Reason: IBS)
Discharge Orders:
Discharge Patient (As Directed); Ordered 02/18/24
Ordered By: Bobby Snyder
Discharge Date and Time
Discharge Date/Time: 02/18/24 19:46
Print Language: SAMOAN
[2024-02-17 15:00] VITALS: BP 139/69
[2024-02-17] MEDS: ROCEPHIN 2000 MG IV (16:27)
[2024-02-17] MEDS: STERILE WATER FOR INJECTION 20 ML IV (16:28)
[2024-02-17] MEDS: LOVENOX 40 MG SC (17:15)
[2024-02-17] MEDS: ZITHROMAX 500 MG PO (17:16)
[2024-02-17] MEDS: REQUIP 1 MG PO (17:33)
[2024-02-17] MEDS: CYMBALTA DELAYED RELEASE 30 MG PO (17:33)
[2024-02-17] MEDS: SENOKOT-S 2 TABLET PO (17:33)
[2024-02-17] MEDS: REQUIP 2 MG PO (17:33)
[2024-02-17] MEDS: MELATONIN 3 MG PO (21:36)
[2024-02-17] MEDS: REMERON 30 MG PO (21:36)
[2024-02-17] MEDS: FLUSH (NSS) 2 FLUSH IV (22:51)
[2024-02-17 23:40] VITALS: BP 150/64
[2024-02-18] MEDS: PERCOCET 5/325 1 TABLET PO ×6 (00:58→19:38)
[2024-02-18] MEDS: SYNTHROID 125 MCG PO (04:55)
[2024-02-18] MEDS: LIDOCAINE 4% PATCH 1 PATCH TOPICAL (06:13)
[2024-02-18 07:30] VITALS: BP 162/80
[2024-02-18] MEDS: SYMBICORT 160/4.5 MCG INHALER 2 PUFF INH (07:30)
[2024-02-18] MEDS: DUONEB 3 ML INH ×2 (07:30→13:43)
[2024-02-18] MEDS: LOPRESSOR 100 MG PO ×2 (08:06→16:55)
[2024-02-18] MEDS: PROTONIX 40 MG PO (08:06)
[2024-02-18] MEDS: LASIX 40 MG PO (08:09)
[2024-02-18] MEDS: LYRICA 75 MG PO ×3 (08:09→19:38)
[2024-02-18] MEDS: CARDIZEM CD 300 MG PO (08:09)
[2024-02-18] MEDS: LOW STRENGTH ASPIRIN 81 MG PO (08:09)
[2024-02-18] MEDS: COZAAR 50 MG PO (08:12)
[2024-02-18] MEDS: CYMBALTA DELAYED RELEASE 60 MG PO (08:12)
[2024-02-18 09:31] LABS: % Basophils 0.2 % (0-2); % Immature Granulocytes 2.7 % (0-0.5); % Lymphocytes 9.4 % (20.5-51.1); % Monocytes 2.2 % (1.7-9.3); % Neutrophils 85.5 % (42.2-75.2); Absolute Immature Granulocytes 0.5 10^3/uL (0-0.05); Absolute Lymphocytes 1.6 10^3/uL (1.2-3.4); Absolute Monocytes 0.4 10^3/uL (0.1-0.6); Absolute Neutrophils 14.2 10^3/uL (1.4-6.5); Hematocrit 33.8 % (37.0-47.0); Hemoglobin 10.3 g/dL (12.0-16.0); Mean Corp Hgb Conc. 30.5 g/dL (33.0-37.0); Mean Corpuscular Hgb 22.8 pg (27.0-31.0); Mean Corpuscular Volume 74.9 fL (81.0-99.0); Mean Platelet Volume 9.4 fL (7.4-10.4); Nucleated Red Blood Cells % 0.1 %; Platelet Count 249 10^3/uL (130-400); Red Blood Cell Count 4.51 10^6/uL (4.20-5.40); Red Cell Dist. Width 17.4 % (11.5-14.5); White Blood Cell Count 16.6 10^3/uL (4.8-10.8)
[2024-02-18 11:31] LABS: Blood Urea Nitrogen 32 mg/dl (7-17); Calcium 9.4 mg/dl (8.4-10.2); Carbon Dioxide 24 mmol/L (22-30); Chloride 100 mmol/L (98-107); Estimated Creatinine Clearance 50 ml/min; Glucose 237 mg/dl (70-99); Potassium 3.7 mmol/L (3.5-5.1); Sodium 144 mmol/L (135-145); eGFR 50.48
[2024-02-18] MEDS: DECADRON 4 MG IV (11:35)
--- NOTE | 2024-02-18 12:11 | W.PN.HOSP.TC ---
Addendum entered and electronically signed by Bobby Snyder MD 02/19/24 08:15:
time of discharge 38minutes
Original Note:
Today's Communication/Plan
-
Monitor vital signs see plan
Leukocytosis likely secondary to steroids
Feeling better
Discharge on oral antibiotics
Off oxygen
Discussed with daughter over the phone
Assessment / Plan
Assessment / Plan
Gen-AAOx3, NAD
HEENT-NC, AT, anicteric, clear oral mm
Neck-supple
CV-reg, no M, +S1/S2
Lungs-bilateral rhonchi and wheezes
Abd-soft, NT, ND
Ext-no edema
Musculoskeletal-no cyanosis, clubbing
Skin-warm and dry
Neuro-grossly non-focal
Psych-calm, cooperative
Acute hypoxic respiratory insufficiency -due to pneumonia. Now on room air and satting greater than 94%
Sepsis due to pneumonia -differential diagnosis includes aspiration pneumonia versus community-acquired pneumonia. Chest x-ray with moderate right upper lobe pneumonia. Moderate chronic scarring in the right middle lobe and lingula. Mild lactic
acidosis noted.
Continue antibiotics. Leaning more towards community-acquired pneumonia as she did okay with speech therapy evaluation.
Mild wheezing on exam, started Decadron; transition to prednisone with taper on discharge
Leukocytosis likely secondary to steroids; no fever. feeling better
Essential hypertension -stable.
Hypothyroidism -resume Synthroid.
Peripheral neuropathy
IBS
Chronic anemia -stable.
Chronic pain syndrome/chronic opiate dependence -daughter states she takes Percocet 5 mg tablets every 4 hours [id number]. Also on Lyrica.
Chronic neurogenic bladder -chronic Hair catheter. Last changed at some point this month according to patient.
Obesity due to excess calories
DNR -confirmed with patient and daughter.
Dispo -back to [facility] when medically stable.
Anticipated Discharge: Today
Subjective/Interval History
-
Date of Service: February 18, 2024
denies pain
Objective Data
-
Labs:
Laboratory Results
02/18/24 02/18/24 02/18/24
05:54 08:49 08:50
WBC Cancelled 16.6 H
Hgb Cancelled 10.3 L
Hct Cancelled 33.8 L
Plt Count Cancelled 249 D
Sodium Cancelled 144
Potassium Cancelled 3.7
Chloride Cancelled 100
Carbon Dioxide Cancelled 24
BUN Cancelled 32 H
Creatinine Cancelled 1.1 H
Glucose Cancelled 237 H
Calcium Cancelled 9.4
02/18/24
11:56
WBC
Hgb
Hct
Plt Count
Sodium Pending
Potassium Pending
Chloride Pending
Carbon Dioxide Pending
BUN Pending
Creatinine Pending
Glucose Pending
Calcium Pending
Vital Signs:
Vital Signs
Temp Pulse Resp BP Pulse Ox
97.6 F 78 16 162/80 95
02/18/24 07:30 02/18/24 07:34 02/18/24 07:34 02/18/24 07:30 02/18/24 07:34
I&O
02/17/24 02/18/24 02/19/24
06:59 06:59 06:59
Intake Total 750 / 750 1240 / 1240
Output Total 1450 / 1450 1600 / 1600
Balance -700 / -700 -360 / -360
[2024-02-18 12:36] LABS: Blood Urea Nitrogen 33 mg/dl (7-17); Calcium 9.2 mg/dl (8.4-10.2); Carbon Dioxide 32 mmol/L (22-30); Chloride 101 mmol/L (98-107); Estimated Creatinine Clearance 50 ml/min; Glucose 64 mg/dl (70-99); Potassium 4.2 mmol/L (3.5-5.1); Sodium 143 mmol/L (135-145); eGFR 50.48
--- NOTE | 2024-02-18 13:27 | CM ---
Spoke with attending who stated that patient has been cleared for discharge. Placed a call to [facility] and spoke with Mckayla her nurse who confirmed patient's ability to return today. # For report [phone] and fax [phone].
Medical necessity and transfer sheet completed and provided to [employer].
IMM signed and reviewed with patient.
Will call daughter to update.
Plan: Case management will continue to follow and assist with discharge planning. Back to [facility] at [facility].
[2024-02-18 16:00] VITALS: BP 129/91
[2024-02-18] MEDS: STERILE WATER FOR INJECTION 20 ML IV (16:54)
[2024-02-18] MEDS: REQUIP 2 MG PO (16:54)
[2024-02-18] MEDS: ROCEPHIN 2000 MG IV (16:54)
[2024-02-18] MEDS: CYMBALTA DELAYED RELEASE 30 MG PO (16:55)
[2024-02-18] MEDS: ZITHROMAX 500 MG PO (16:55)
[2024-02-18] MEDS: REQUIP 1 MG PO (16:55)
[2024-02-18] MEDS: SENOKOT-S 2 TABLET PO (16:55)
[2024-02-18] MEDS: LOVENOX 40 MG SC (16:56)
[2024-02-18 19:19] VITALS: BP 179/89
[2024-02-18 19:30] VITALS: BP 172/88
[2024-02-18] MEDS: SYMBICORT 160/4.5 MCG INHALER INH (19:31)
[2024-02-18] MEDS: DUONEB INH (19:32)
--- NOTE | 2024-02-18 19:46 | PTCARENOTE ---
Blood pressure elevated. Manual BP obtained, continues to be elevated. Transport at bedside. [employer] called and made aware, instructed this RN to administer scheduled lyrica and Percocet. [employer] informed this RN pt ok to be discharged once medications
administered. [facility] called and made aware. Report provided to transport.
== END 2024-02-18 19:46 | DRG 871 ==
LOC: 3 WEST ACU 11:52
PROVIDERS: ADMITTING PHYSICIAN Hospitalist; ATTENDING PHYSICIAN Internal Medicine; EMERGENCY PHYSICIAN Emergency Medicine; FAMILY PHYSICIAN Student in an Organized Health Care Education/Training Program
DX: A41.9 Sepsis, unspecified organism (principal); J18.9 Pneumonia, unspecified organism; J69.0 Pneumonitis due to inhalation of food and vomit; E87.20 Acidosis, unspecified; F11.20 Opioid dependence, uncomplicated; Z66 Do not resuscitate; N31.9 Neuromuscular dysfunction of bladder, unspecified; I49.5 Sick sinus syndrome; E89.0 Postprocedural hypothyroidism; D64.9 Anemia, unspecified; G89.4 Chronic pain syndrome; G60.9 Hereditary and idiopathic neuropathy, unspecified; I10 Essential (primary) hypertension; F32.A Depression, unspecified; F41.9 Anxiety disorder, unspecified; M19.90 Unspecified osteoarthritis, unspecified site; K58.0 Irritable bowel syndrome with diarrhea; R06.89 Other abnormalities of breathing; R09.02 Hypoxemia; Z95.0 Presence of cardiac pacemaker; E66.09 Other obesity due to excess calories; Z68.33 Body mass index [BMI] 33.0-33.9, adult; Z87.01 Personal history of pneumonia (recurrent); Z79.890 Hormone replacement therapy; Z79.82 Long term (current) use of aspirin; Z79.899 Other long term (current) drug therapy; Z88.2 Allergy status to sulfonamides; Z96.0 Presence of urogenital implants; Z20.822 Contact with and (suspected) exposure to COVID-19
CPT/HCPCS: 71046; 80048; 83605; 84132; 84443; 85025; 86140; 87040; 87502; 87811; 92526; 92610; 93005; 94640; 96374; 96375; 96376; 97116; 97162; 97166; 97530; 99285

== ENCOUNTER → 2024-02-25 11:50 | Outpatient (REF) | payer OTHER, MEDICARE, SELFPAY ==
[2024-02-25 12:19] LABS: % Basophils 0.1 % (0-2); % Eosinophils 0.4 % (0-6); % Immature Granulocytes 2.4 % (0-0.5); % Lymphocytes 18.7 % (20.5-51.1); % Monocytes 8.3 % (1.7-9.3); % Neutrophils 70.1 % (42.2-75.2); Absolute Eosinophils 0.1 10^3/uL (0-0.7); Absolute Immature Granulocytes 0.4 10^3/uL (0-0.05); Absolute Lymphocytes 2.7 10^3/uL (1.2-3.4); Absolute Monocytes 1.2 10^3/uL (0.1-0.6); Hematocrit 29.3 % (37.0-47.0); Hemoglobin 8.8 g/dL (12.0-16.0); Mean Corpuscular Hgb 23.3 pg (27.0-31.0); Mean Corpuscular Volume 77.7 fL (81.0-99.0); Mean Platelet Volume 10.2 fL (7.4-10.4); Nucleated Red Blood Cells % 0 %; Platelet Count 230 10^3/uL (130-400); Red Blood Cell Count 3.77 10^6/uL (4.20-5.40); Red Cell Dist. Width 17.8 % (11.5-14.5); White Blood Cell Count 14.3 10^3/uL (4.8-10.8)
[2024-02-25 12:25] LABS: ALT (SGPT) 19 U/L (0-35); AST (SGOT) 20 U/L (14-36); Albumin 3.4 g/dl (3.5-5.0); Alkaline Phosphatase 93 U/L (38-126); Blood Urea Nitrogen 37 mg/dl (7-17); Calcium 8.6 mg/dl (8.4-10.2); Carbon Dioxide 27 mmol/L (22-30); Chloride 107 mmol/L (98-107); Glucose 107 mg/dl (70-99); Magnesium 2.3 mg/dl (1.6-2.3); Potassium 3.9 mmol/L (3.5-5.1); Sodium 143 mmol/L (135-145); Total Bilirubin 0.3 mg/dl (0.2-1.3); Total Protein 5.6 g/dl (6.3-8.2); eGFR 50.48
[2024-02-25 12:57] LABS: TSH 0.06 uIU/ml (0.47-4.68)
== END ==
LOC: OLABN 11:50
PROVIDERS: ATTENDING PHYSICIAN Student in an Organized Health Care Education/Training Program
DX: E03.9 Hypothyroidism, unspecified (principal); I48.91 Unspecified atrial fibrillation; N18.32 Chronic kidney disease, stage 3b; R60.0 Localized edema
CPT/HCPCS: 36415; 80053; 83735; 84443; 85025

== ENCOUNTER → 2024-03-11 10:46 | Outpatient (REF) | payer MEDICARE, OTHER, SELFPAY ==
[2024-03-11 12:10] LABS: % Basophils 0.3 % (0-2); % Eosinophils 3.2 % (0-6); % Lymphocytes 17.3 % (20.5-51.1); % Monocytes 6.4 % (1.7-9.3); % Neutrophils 70.8 % (42.2-75.2); Absolute Eosinophils 0.3 10^3/uL (0-0.7); Absolute Immature Granulocytes 0.2 10^3/uL (0-0.05); Absolute Lymphocytes 1.8 10^3/uL (1.2-3.4); Absolute Monocytes 0.7 10^3/uL (0.1-0.6); Absolute Neutrophils 7.2 10^3/uL (1.4-6.5); Hematocrit 28.5 % (37.0-47.0); Hemoglobin 8.6 g/dL (12.0-16.0); Mean Corp Hgb Conc. 30.2 g/dL (33.0-37.0); Mean Corpuscular Hgb 23.8 pg (27.0-31.0); Mean Corpuscular Volume 78.9 fL (81.0-99.0); Mean Platelet Volume 10.5 fL (7.4-10.4); Nucleated Red Blood Cells % 0 %; Platelet Count 158 10^3/uL (130-400); Red Blood Cell Count 3.61 10^6/uL (4.20-5.40); Red Cell Dist. Width 18.6 % (11.5-14.5); White Blood Cell Count 10.2 10^3/uL (4.8-10.8)
[2024-03-11 12:23] LABS: Iron 39 ug/dl (37-170)
[2024-03-11 12:32] LABS: Percent Saturation 11 % (20-50); Total Iron Binding Capacity 336 ug/dl (265-497)
[2024-03-11 12:55] LABS: Ferritin 89.5 ng/ml (11.1-264.0)
[2024-03-11 19:54] LABS: Reticulocyte Count 2.8 % (0.4-2.8)
== END ==
LOC: OLABN 10:46
PROVIDERS: ATTENDING PHYSICIAN Student in an Organized Health Care Education/Training Program
DX: D64.9 Anemia, unspecified (principal); E03.9 Hypothyroidism, unspecified
CPT/HCPCS: 36415; 82728; 83540; 83550; 85025; 85045

== ENCOUNTER → 2024-03-15 08:51 | Outpatient (REF) | payer MEDICARE, OTHER, SELFPAY ==
[2024-03-16 12:05] LABS: Urine Albumin Trace (Neg - Trace); Urine Bilirubin Negative (Negative); Urine Character Clear (Clear); Urine Color Yellow; Urine Glucose Negative (Negative); Urine Ketone Negative (Negative); Urine Leukocyte 2+ (Negative); Urine Nitrite Positive (Negative); Urine Occult Blood Negative (Negative); Urine Specific Gravity 1.015 (<1.030); Urine Urobilinogen Negative (Neg - 1+)
[2024-03-16 12:57] LABS: Urine Bacteria Many (Negative); Urine White Cell 50-60 /HPF (0-5)
== END ==
LOC: OLABN 08:51
PROVIDERS: ATTENDING PHYSICIAN Student in an Organized Health Care Education/Training Program
DX: R53.1 Weakness (principal)
CPT/HCPCS: 36415; 81003; 81015; 87077; 87086

== ENCOUNTER → 2024-04-08 10:27 | Outpatient (REF) | payer MEDICARE, OTHER, SELFPAY | LOC: OLABN 10:27 | PROVIDERS: ATTENDING PHYSICIAN Student in an Organized Health Care Education/Training Program | DX: E03.9 Hypothyroidism, unspecified (principal) | CPT/HCPCS: 36415; 84443 ==

== ENCOUNTER → 2024-05-20 10:37 | Outpatient (REF) | payer MEDICARE, OTHER, SELFPAY | LOC: OLABN 10:37 | PROVIDERS: ATTENDING PHYSICIAN Student in an Organized Health Care Education/Training Program | DX: E03.9 Hypothyroidism, unspecified (principal) | CPT/HCPCS: 36415; 84443 ==

== ENCOUNTER → 2024-07-02 11:41 | Outpatient (REF) | payer MEDICARE, OTHER, SELFPAY ==
[2024-07-02 13:26] LABS: TSH 9.34 uIU/ml (0.47-4.68)
== END ==
LOC: OLABN 11:41
PROVIDERS: ATTENDING PHYSICIAN Student in an Organized Health Care Education/Training Program
DX: E03.9 Hypothyroidism, unspecified (principal)
CPT/HCPCS: 36415; 84443

== ENCOUNTER → 2024-07-29 11:46 | Outpatient (REF) | payer MEDICARE, OTHER, SELFPAY ==
[2024-07-29 12:41] LABS: Blood Urea Nitrogen 31 mg/dl (7-17); Calcium 8.7 mg/dl (8.4-10.2); Carbon Dioxide 29 mmol/L (22-30); Chloride 107 mmol/L (98-107); Glucose 75 mg/dl (70-99); Potassium 3.9 mmol/L (3.5-5.1); Sodium 144 mmol/L (135-145)
[2024-07-29 12:58] LABS: Free T4 1.15 ng/dl (0.78-2.19); Vitamin D, 25-OH*** 35.2 ng/mL (30-80)
[2024-07-29 13:12] LABS: TSH 5.14 uIU/ml (0.47-4.68)
[2024-07-29 13:31] LABS: Vitamin B12 205 pg/ml (239-931)
== END ==
LOC: OLABN 11:46
PROVIDERS: ATTENDING PHYSICIAN Student in an Organized Health Care Education/Training Program
DX: E03.9 Hypothyroidism, unspecified (principal); G25.81 Restless legs syndrome; E53.8 Deficiency of other specified B group vitamins; E55.9 Vitamin D deficiency, unspecified
CPT/HCPCS: 36415; 80048; 82306; 82607; 84439; 84443

== ENCOUNTER → 2024-08-26 11:07 | Outpatient (REF) | payer MEDICARE, OTHER, SELFPAY ==
[2024-08-26 13:36] LABS: TSH 3.31 uIU/ml (0.47-4.68)
[2024-08-26 14:01] LABS: Vitamin B12 354 pg/ml (239-931)
== END ==
LOC: OLABN 11:07
PROVIDERS: ATTENDING PHYSICIAN Student in an Organized Health Care Education/Training Program
DX: E03.9 Hypothyroidism, unspecified (principal); D51.9 Vitamin B12 deficiency anemia, unspecified
CPT/HCPCS: 36415; 82607; 84443

== ENCOUNTER 2024-09-03 13:07 | Inpatient (IN) | payer MEDICARE, OTHER, SELFPAY ==
[2024-09-03] VITALS (14 sets, daily range): BP systolic 89–155; BP diastolic 39–84
[2024-09-03] MEDS: TYLENOL/FEVERALL 650 MG RECTAL ×2 (09:25→16:01)
[2024-09-03] MEDS: NSS 1000 IV ×3 (09:39→16:00)
--- NOTE | 2024-09-03 09:40 | ED.GENMED ---
History of Present Illness
<Aleksandar Torres DO - Last Filed: 09/03/24 09:42>
General
Chief Complaint: Fever
Time Seen by Provider: 09/03/24 09:26
<Alex Marie PA-C - Last Filed: 09/03/24 13:40>
History of Present Illness
History of Present Illness:
83-year-old female presents the emergency department for evaluation of respiratory distress and fever. She was known to be febrile this morning and had vomited according to nursing facility staff. According to her daughter she may have actually
vomited last night. History of aspiration.
Past History
<Aleksandar Torres DO - Last Filed: 09/03/24 09:42>
Past History
ED Past Medical History: Arrthythmia (SSS), HTN, Hypothyroidism and Other (Chronic idiopathic neuropathy, irritable bowel syndrome, arthritis, neurogenic bladder-self caths)
ED Past Surgical History: Cardiac (pacemaker), Cholecystectomy, Orthopedic and Other (thyroidectomy)
Social History
Tobacco: Non-smoker
Alcohol: None
Drug: None
Personal:
Living: alone
Employment: Not employed
Family History
Family History: Other
Review of Systems
<lAex Marie PA-C - Last Filed: 09/03/24 13:40>
Review of Systems
Allergies reviewed?: Yes
All Other Systems: ROS reviewed and negative except as documented in HPI and ROS
Phy Exam
<Alex Marie PA-C - Last Filed: 09/03/24 13:40>
Physical Exam
Physical Exam:
GEN: Ill-appearing, confused, acute respiratory distress
HEENT: Oral mucosa moist, no scleral icterus
Cardiac: Tachycardic, regular
Lung: Acute respiratory distress with accessory muscle use, grossly diminished right-sided breath sounds
MSK: No gross deformity or injuries
Skin: Good color, no pallor or jaundice, no rashes
Neuro: AO x3, moves all extremities freely
Psych: Calm, cooperative
Sepsis
<Aleksandar Torres DO - Last Filed: 09/03/24 09:42>
Sepsis Screen
Sepsis Screen: Possible Sepsis
Date: 09/03/24
Time: 09:40
<Alex Marie PA-C - Last Filed: 09/03/24 13:40>
Sepsis Screening
Sepsis Assessment: Sepsis
Sepsis Screen
Sepsis Screen: Sepsis
Date: 09/03/24
Time: 13:39
Course
<Aleksandar Torres DO - Last Filed: 09/03/24 09:42>
Orders/Labs/Results
Orders:
Orders
09/03/24
Electrocardiogram (*1) Stat
Comment: DONE
09/03/24 09:23
Acetaminophen [Tylenol/Feverall] 650 mg RECTAL NOW STA
09/03/24 09:26
0.9% Sodium Chloride 1000 ml [Nss] 1,000 ml IV BOLUS
09/03/24 09:27
CR Chest Portable - 1 View Urgent
Comment:
Reason For Exam: SOB
Reason Study Needs to be Portable: Other
09/03/24 09:32
Basic Metabolic Panel Urgent
COVID-19 Antigen Urgent
Source: Nasal Swab
Complete Blood Count/With Diff Urgent
Lactic Acid Q4H
Comment: CANCEL 2nd LACTIC ACID IF 1st LACTIC ACID IS LESS THAN 2
Venous Blood Gas Urgent
%Oxygen/Room Air: 80
Blood Culture Q30M
JUAN PABLO Source: Blood/Venous
Specimen Description:
Influenza A+B Rapid Molecular Urgent
JUAN PABLO Source: Nasal Swab
Specimen Description:
09/03/24 10:34
Piperacillin/Tazo 3.375 Gram [Zosyn] 3.375 gram in 50 ml IV NOW
09/03/24 10:44
Urinalysis Reflex To Culture Urgent
Date Specimen was Collected: 09/03/24
Time Specimen was Collected: 09:55
Urine Microscopic Reflex Cult Urgent
Blood Culture Q30M
JUAN PABLO Source: Blood/Venous
Specimen Description:
Urine Culture Urgent
JUAN PABLO Source: U
Specimen Description:
Date Specimen was Collected: 09/03/24
Time Specimen was Collected: 09:55
09/03/24 10:45
Oxycodone [Roxicodone] 5 mg PO NOW STA
09/03/24 12:34
Admit/Transfer Patient As Directed
Co-Sign Provider:
Level of Care: Inpatient admission
Assign to:: IMU- Intermediate Care
Physician / Group: robert marina
Diagnosis: Acute hypoxic respiratory failure secondary to pneumonia
Reason for Hospitalization: Acute hypoxic respiratory failure secondary to pneumonia
Expected length of stay greater than two midnights?: Yes
ELOS- Estimated Length of Stay in days: 3
I certify the patient meets the requirements for IP care: Yes
PRN Pain Medication Management As Directed
May give lesser potent ordered pain med per pt: Yes
preference::
Protocol:: Medication orders for pain may be administered in a
manner that supports deferring to patient preference
when the pt is:
- Requesting an ordered lesser potent pain medication.
Least to most potent pain medications are defined
as: acetaminophen < NSAID < tramadol < opioids
(morphine, oxycodone, hydromorphone).
- Requesting a lesser dose of the same medication IF
ORDERED.
- Requesting a less intrusive route of administration
if both routes are prescribed by the provider (PO <
IV).
09/03/24 12:37
0.9% Sodium Chloride 1000 ml [Nss] 1,000 ml IV BOLUS
09/03/24 12:40
Code Status As Directed
Resuscitation Status: Do not resuscitate
Reached after discussion with pt or family/Healthcare POA: Yes
DNR Bracelet Application ONCE
09/03/24 12:42
Pregabalin [Lyrica] 75 mg PO NOW STA
09/03/24 12:48
PULMONARY CONSULT Routine
Consulting Provider: Alberto Horn
Was physician already notified: Yes
09/03/24 13:00
0.9% Sodium Chloride 1000 ml [Nss] 1,000 ml IV 70 mls/hr
Guaifenesin [Mucinex] 600 mg PO Q12
09/03/24 16:30
Piperacillin/Tazo 3.375 Gram [Zosyn] 3.375 gram in 50 ml IV Q6H
Abnormal Lab Results
09/03/24 09/03/24
09:32 10:44
WBC 17.3 H 10^3/uL
(4.8-10.8)
MCHC 31.9 L g/dL
(33.0-37.0)
RDW 16.4 H %
(11.5-14.5)
Abs Immat Gran (auto) 0.1 H 10^3/uL
(0-0.05)
Absolute Neuts (auto) 14.3 H 10^3/uL
(1.4-6.5)
Absolute Monos (auto) 1.1 H 10^3/uL
(0.1-0.6)
Immature Gran % 0.7 H %
(0-0.5)
Neutrophils % 83.0 H %
(42.2-75.2)
Lymphocytes % 9.6 L %
(20.5-51.1)
VBG pH 7.47 H
(7.32-7.43)
VBG pO2 113 H mmHg
(30-50)
VBG HCO3 30.6 H mmol/L
(22-27)
Carbon Dioxide 31 H mmol/L
(22-30)
BUN 22 H mg/dl
(7-17)
Creatinine 1.1 H mg/dL
(0.6-1.0)
Glucose 134 H mg/dl
(70-99)
Ur Occult Blood Reflex 4+ A
(Negative)
Urine Nitrite (Reflex) Positive A
(Negative)
Leukocyte Esterase Rfl 3+ A
(Negative)
Urine RBC 11-15 A /HPF
(0-2)
Urine WBC (Reflex) >100 A /HPF
(0-5)
Urine Bacteria (Reflex) Many A
(Negative)
Urine Albumin (Reflex) 3+ A
(Neg - Trace)
09/03/24 09:32
09/03/24 09:32
Vital Signs
Initial and Last Documented VS:
Initial Vital Signs
Temp Pulse Resp Pulse Ox
104.8 F H 129 20 86
09/03/24 09:22 09/03/24 09:22 09/03/24 09:22 09/03/24 09:22
Last Documented Vital Signs
Temp Pulse Resp BP Pulse Ox
104.8 F H 112 27 105/69 96
09/03/24 09:22 09/03/24 11:00 09/03/24 10:30 09/03/24 11:00 09/03/24 11:00
<Alex Marie PA-C - Last Filed: 09/03/24 13:40>
Orders/Labs/Results
Orders:
Orders
09/03/24
Electrocardiogram (*1) Stat
Comment: DONE
09/03/24 09:23
Acetaminophen [Tylenol/Feverall] 650 mg RECTAL NOW STA
09/03/24 09:26
0.9% Sodium Chloride 1000 ml [Nss] 1,000 ml IV BOLUS
09/03/24 09:27
CR Chest Portable - 1 View Urgent
Comment:
Reason For Exam: SOB
Reason Study Needs to be Portable: Other
09/03/24 09:32
Basic Metabolic Panel Urgent
COVID-19 Antigen Urgent
Source: Nasal Swab
Complete Blood Count/With Diff Urgent
Lactic Acid Q4H
Comment: CANCEL 2nd LACTIC ACID IF 1st LACTIC ACID IS LESS THAN 2
Venous Blood Gas Urgent
%Oxygen/Room Air: 80
Blood Culture Q30M
JUAN PABLO Source: Blood/Venous
Specimen Description:
Influenza A+B Rapid Molecular Urgent
JUAN PABLO Source: Nasal Swab
Specimen Description:
09/03/24 10:34
Piperacillin/Tazo 3.375 Gram [Zosyn] 3.375 gram in 50 ml IV NOW
09/03/24 10:44
Urinalysis Reflex To Culture Urgent
Date Specimen was Collected: 09/03/24
Time Specimen was Collected: 09:55
Urine Microscopic Reflex Cult Urgent
Blood Culture Q30M
JUAN PABLO Source: Blood/Venous
Specimen Description:
Urine Culture Urgent
JUAN PABLO Source: U
Specimen Description:
Date Specimen was Collected: 09/03/24
Time Specimen was Collected: 09:55
09/03/24 10:45
Oxycodone [Roxicodone] 5 mg PO NOW STA
09/03/24 12:34
Admit/Transfer Patient As Directed
Co-Sign Provider:
Level of Care: Inpatient admission
Assign to:: IMU- Intermediate Care
Physician / Group: robert marina
Diagnosis: Acute hypoxic respiratory failure secondary to pneumonia
Reason for Hospitalization: Acute hypoxic respiratory failure secondary to pneumonia
Expected length of stay greater than two midnights?: Yes
ELOS- Estimated Length of Stay in days: 3
I certify the patient meets the requirements for IP care: Yes
PRN Pain Medication Management As Directed
May give lesser potent ordered pain med per pt: Yes
preference::
Protocol:: Medication orders for pain may be administered in a
manner that supports deferring to patient preference
when the pt is:
- Requesting an ordered lesser potent pain medication.
Least to most potent pain medications are defined
as: acetaminophen < NSAID < tramadol < opioids
(morphine, oxycodone, hydromorphone).
- Requesting a lesser dose of the same medication IF
ORDERED.
- Requesting a less intrusive route of administration
if both routes are prescribed by the provider (PO <
IV).
09/03/24 12:37
0.9% Sodium Chloride 1000 ml [Nss] 1,000 ml IV BOLUS
09/03/24 12:40
Code Status As Directed
Resuscitation Status: Do not resuscitate
Reached after discussion with pt or family/Healthcare POA: Yes
DNR Bracelet Application ONCE
09/03/24 12:42
Pregabalin [Lyrica] 75 mg PO NOW STA
09/03/24 12:48
PULMONARY CONSULT Routine
Consulting Provider: Alberto Horn
Was physician already notified: Yes
09/03/24 13:00
0.9% Sodium Chloride 1000 ml [Nss] 1,000 ml IV 70 mls/hr
Guaifenesin [Mucinex] 600 mg PO Q12
09/03/24 16:30
Piperacillin/Tazo 3.375 Gram [Zosyn] 3.375 gram in 50 ml IV Q6H
Abnormal Lab Results
09/03/24 09/03/24
09:32 10:44
WBC 17.3 H 10^3/uL
(4.8-10.8)
MCHC 31.9 L g/dL
(33.0-37.0)
RDW 16.4 H %
(11.5-14.5)
Abs Immat Gran (auto) 0.1 H 10^3/uL
(0-0.05)
Absolute Neuts (auto) 14.3 H 10^3/uL
(1.4-6.5)
Absolute Monos (auto) 1.1 H 10^3/uL
(0.1-0.6)
Immature Gran % 0.7 H %
(0-0.5)
Neutrophils % 83.0 H %
(42.2-75.2)
Lymphocytes % 9.6 L %
(20.5-51.1)
VBG pH 7.47 H
(7.32-7.43)
VBG pO2 113 H mmHg
(30-50)
VBG HCO3 30.6 H mmol/L
(22-27)
Carbon Dioxide 31 H mmol/L
(22-30)
BUN 22 H mg/dl
(7-17)
Creatinine 1.1 H mg/dL
(0.6-1.0)
Glucose 134 H mg/dl
(70-99)
Ur Occult Blood Reflex 4+ A
(Negative)
Urine Nitrite (Reflex) Positive A
(Negative)
Leukocyte Esterase Rfl 3+ A
(Negative)
Urine RBC 11-15 A /HPF
(0-2)
Urine WBC (Reflex) >100 A /HPF
(0-5)
Urine Bacteria (Reflex) Many A
(Negative)
Urine Albumin (Reflex) 3+ A
(Neg - Trace)
09/03/24 09:32
09/03/24 09:32
Vital Signs
Initial and Last Documented VS:
Initial Vital Signs
Temp Pulse Resp Pulse Ox
104.8 F H 129 20 86
09/03/24 09:22 09/03/24 09:22 09/03/24 09:22 09/03/24 09:22
Last Documented Vital Signs
Temp Pulse Resp BP Pulse Ox
104.8 F H 112 27 105/69 96
09/03/24 09:22 09/03/24 11:00 09/03/24 10:30 09/03/24 11:00 09/03/24 11:00
<Alex Marie PA-C - Last Filed: 09/03/24 13:40>
MDM/Problems Addressed
MDM/Problems Addressed:
Patient will be admitted for further management. She is septic due to likely aspiration pneumonia given her reports of vomiting prior to the event. She required high flow nasal cannula to maintain adequate saturations but her work of breathing did
improve with fever defervescence
<Alex Marie PA-C - Last Filed: 09/03/24 13:40>
*Critical Care Note
Total Time (30-74mins, 75-104mins- exclusive of procedures): Not Applicable
ED Attending Note
<Aleksandar Torres DO - Last Filed: 09/03/24 09:42>
ED Attending Note
Patient seen and examined by attending physician: Yes
I performed the substantive portion of visit, reviewed & personally made and approve the management plan that is documented in note by myself or EDENILSON.: Yes
ED Attending Note:
The patient is ill-appearing. She is febrile tachycardic. She is hypoxic and has history of COPD.
-
Portions of this chart may have been created with voice recognition software.� Occasional wrong word or��sound alike� substitutions may have occurred due to the inherent limitations of voice recognition software.
Discharge Plan
Departure
Patient Disposition: Admit
Date of Disposition: 09/03/24
Time of Disposition: 10:52
Admit to: Med/Surg
Presentation/result/management discussed w/ accepting MD/DO: Hospitalist
Discharge Problem:
Aspiration pneumonia
Interventions
Interventions:
*Risk Screen - Suicide Last Done: 09/03/24 09:22
*General Assessment Last Done: 09/03/24 09:22
*Neglect/Abuse Screening Last Done: 09/03/24 09:22
ED- Neurological Assessment Last Done: 09/03/24 12:34
ED-Skin Assessment Last Done: 09/03/24 12:35
[2024-09-03 09:43] LABS: Venous Blood Gas B.E. 6.2 mmol/L (-4 to +4); Venous Blood Gas HCO3 30.6 mmol/L (22-27); Venous Blood Gas O2 Sat % 98.6 %; Venous Blood Gas pCO2 42 mmHg (35-48); Venous Blood Gas pH 7.47 (7.32-7.43); Venous Blood Gas pO2 113 mmHg (30-50)
[2024-09-03 09:46] LABS: % Basophils 0.3 % (0-2); % Eosinophils 0.2 % (0-6); % Immature Granulocytes 0.7 % (0-0.5); % Lymphocytes 9.6 % (20.5-51.1); % Monocytes 6.2 % (1.7-9.3); Absolute Basophils 0.1 10^3/uL (0-0.2); Absolute Immature Granulocytes 0.1 10^3/uL (0-0.05); Absolute Lymphocytes 1.7 10^3/uL (1.2-3.4); Absolute Monocytes 1.1 10^3/uL (0.1-0.6); Absolute Neutrophils 14.3 10^3/uL (1.4-6.5); Hematocrit 39.8 % (37.0-47.0); Hemoglobin 12.7 g/dL (12.0-16.0); Mean Corp Hgb Conc. 31.9 g/dL (33.0-37.0); Mean Corpuscular Hgb 27.4 pg (27.0-31.0); Mean Corpuscular Volume 85.8 fL (81.0-99.0); Mean Platelet Volume 9.6 fL (7.4-10.4); Nucleated Red Blood Cells % 0 %; Platelet Count 164 10^3/uL (130-400); Red Blood Cell Count 4.64 10^6/uL (4.20-5.40); Red Cell Dist. Width 16.4 % (11.5-14.5); White Blood Cell Count 17.3 10^3/uL (4.8-10.8)
[2024-09-03 10:07] LABS: COVID-19 Antigen Negative (Negative)
[2024-09-03 10:12] LABS: Lactic Acid 1.1 mmol/L (0.7-2.0)
[2024-09-03 10:13] LABS: Blood Urea Nitrogen 22 mg/dl (7-17); Calcium 8.7 mg/dl (8.4-10.2); Carbon Dioxide 31 mmol/L (22-30); Chloride 104 mmol/L (98-107); Glucose 134 mg/dl (70-99); Sodium 140 mmol/L (135-145); eGFR 50.48
[2024-09-03] MEDS: ZOSYN 50 IV ×3 (10:39→21:53)
[2024-09-03] MEDS: ROXICODONE 5 MG PO (10:54)
[2024-09-03 10:58] LABS: Urine Albumin 3+ (Neg - Trace); Urine Bilirubin Negative (Negative); Urine Character Slightly Cloudy (Clear); Urine Color Yellow; Urine Glucose Negative (Negative); Urine Ketone Negative (Negative); Urine Leukocyte 3+ (Negative); Urine Nitrite Positive (Negative); Urine Occult Blood 4+ (Negative); Urine Urobilinogen Negative (Neg - 1+)
[2024-09-03 11:37] LABS: Urine Bacteria Many (Negative); Urine White Cell >100 /HPF (0-5)
[2024-09-03] MEDS: LYRICA 75 MG PO ×2 (12:56→19:50)
--- NOTE | 2024-09-03 13:57 | HPS.HSE ---
Family Physician
-
Family Physician: Rui Roe, DO
Chief Complaint
-
Fever, shortness of breath
History of Present Illness
83-year-old female with past medical history of hypothyroidism, peripheral neuropathy, IBS, chronic pain syndrome/chronic opioid dependence, chronic neurogenic bladder, obesity, hypertension, sick sinus syndrome, chronic idiopathic neuropathy, IBS,
ILD came to the hospital from senior care with fever shortness of breath. Per daughter at bedside, patient vomited last night. Patient was here previously last year with community-acquired pneumonia. Spoke with daughter at bedside, she does not
want any speech evaluation and accepts patient to be on comfort feeds. Patient at this time denies any chest pain. In the ER patient was hypoxic and was placed on high flow. Currently patient denies any constipation, diarrhea. Denies any
abdominal pain.
Medical History
Past Medical History
Past Medical History: Reports Other (Arrthythmia (SSS), HTN, Hypothyroidism and Other (Chronic idiopathic neuropathy, irritable bowel syndrome, arthritis, neurogenic bladder-self caths))
Past Surgical History: Reports Cardiac, Cholecystectomy and Other
Additional Past Surgical History:
Thyroidectomy
Social History
Tobacco: Non-smoker
Alcohol: None
Family History
Family History: Not pertinent
Allergies / Home Medications
Allergies reflects when Allergies were last updated in [facility].
Home Medications with original date entered in [facility]
Allergy/Medication List:
Allergies
Allergy/AdvReac Type Severity Reaction Status Date / Time
Sulfa (Sulfonamide Allergy Rash Verified 09/03/24 09:30
Antibiotics)
Home Medications
dicyclomine 10 mg capsule 10 mg PO TIDPRN PRN IBS 08/19/16
diltiazem HCl 300 mg capsule,extended release 24 hr 300 mg PO DAILY Heart disease/condition 08/19/16
metoprolol tartrate 100 mg tablet 100 mg PO BID Blood pressure 01/17/21
duloxetine 30 mg capsule,delayed release 30 mg PO HS Mental Health/Anxiety 12/03/21
duloxetine 60 mg capsule,delayed release 60 mg PO DAILY Mental Health/Anxiety 12/03/21
fluticasone fur. 200 mcg-umeclid 62.5 mcg-vilant 25 mcg inhalat.powder (Trelegy Ellipta) 1 inh inhalation R DAILY Lung/breathing issues 12/03/21
furosemide 40 mg tablet 40 mg PO DAILY Fluid retention/Swelling 12/03/21
losartan 50 mg tablet 50 mg PO DAILY Blood pressure 12/03/21
bisacodyl 10 mg rectal suppository (Dulcolax (bisacodyl)) 10 mg NE [id number] PRN if no BM/MOM ineffective 01/01/22
acetaminophen 325 mg tablet 650 mg PO Q4HPRN PRN mild pain/fever>100.4 07/09/22
lidocaine 4 % topical patch 1 patch topical DAILY 07/09/22
mirtazapine 30 mg tablet 30 mg PO HS Sleep 07/09/22
cyanocobalamin (vitamin B-12) 1,000 mcg sublingual tablet 1,000 mcg sublingual WE 12/12/22
diclofenac sodium 1 % topical gel 4 g topical Q6HPRN PRN apply to left shoulder 12/12/22
loperamide 2 mg tablet 2 mg PO Q6HPRN PRN diarrhea 12/12/22
aspirin 81 mg chewable tablet 81 mg PO DAILY Blood Clot Prevention/Tx 07/31/23
calcium carbonate 500 mg PO DAILYPRN PRN acid indigestion 07/31/23
ipratropium 0.5 mg-albuterol 3 mg (2.5 mg base)/3 mL nebulization soln 3 ml inhalation R Q6HPRN PRN sob 07/31/23
omeprazole 20 mg tablet,delayed release 40 mg PO HS Gastrointestinal Issue 07/31/23
ropinirole 3 mg tablet 3 mg PO HS Neurological Condition 07/31/23
triamcinolone acetonide 0.1 % dental paste 1 applic dental QIDPRN PRN canker sores 07/31/23
alprazolam 0.25 mg tablet (Xanax) 0.25 mg PO BIDPRN PRN anxiety #10 tabs 08/04/23
carboxymethylcellulose sodium 0.5 % eye drops in a dropperette (Refresh Plus) 2 drp BOTH EYES QIDPRN PRN dry eye 02/14/24
cranberry extract 425 mg capsule 425 mg PO DAILY Supplement 02/14/24
lactulose 10 gram/15 mL oral solution 20 g PO HSPRN PRN constipation 02/14/24
melatonin 3 mg tablet 3 mg PO HS Sleep 02/14/24
oxycodone-acetaminophen 5 mg-325 mg tablet (Percocet) 1 tab PO Q4H Pain 02/14/24
pregabalin 75 mg capsule 75 mg PO BID Pain 02/14/24
sennosides 8.6 mg-docusate sodium 50 mg tablet (Senna-S) 2 tab-cap PO QPM Constipation 02/14/24
sodium chloride 0.65 % nasal spray aerosol (Deep Sea Nasal) 1 spray intranasal QIDPRN PRN congestion/dryness 02/14/24
Acidophilus/Goat Milk Capsule 1 cap PO DAILY 09/03/24
cholecalciferol (vitamin D3) 1,250 mcg (50,000 unit) tablet 1,250 mcg PO QMONTH 09/03/24
ferrous sulfate 325 mg (65 mg iron) tablet 325 mg PO MOWEFR@1230 09/03/24
fluticasone propionate 50 mcg/actuation nasal spray,suspension 2 spray intranasal HS 09/03/24
levothyroxine 137 mcg tablet (Synthroid) 137 mcg PO DAILY 09/03/24
Review of Systems
-
History Source: Patient
A 12 point ROS was completed and negative except as noted: Yes
Respiratory: Reports Cough and Trouble Breathing
Physical Exam
Vital Signs
Vital Signs
Temp Pulse Resp BP Pulse Ox
104.8 F H 95 27 103/56 97
09/03/24 09:22 09/03/24 13:45 09/03/24 10:30 09/03/24 13:00 09/03/24 13:45
Physical Exam
General: Well Nourished and No Apparent Distress
HEENT: NormoCephalic, Anicteric and Moist mucous membranes
Respiratory: Clear and Rhonchi; No Wheezes
Cardiac: S1/S2, Regular Rhythm and Tachycardia
Breast: Deferred by me
GI: Soft, Non Tender, Non Distended and Normal Bowel Sounds
Rectal: Deferred by Provider
Genito-urinary: No Hair
Musculoskeletal: Edema, Left Lower Extremity and Edema, Right Lower Extremity
Neuro: Awake and Alert
Psych: Calm
Laboratory Results
-
09/03/24 09:32
09/03/24 09:32
Laboratory Results
Lactic Acid Cancelled 09/03/24 13:30
Total Bilirubin Cancelled 09/03/24 09:32
AST Cancelled 09/03/24 09:32
ALT Cancelled 09/03/24 09:32
Alkaline Phosphatase Cancelled 09/03/24 09:32
Data Reviewed
-
Diagnostic Radiology: Report Reviewed by me, Discussed with Patient and Discussed with Family
Lab Data: Labs Reviewed by me, Discussed with Patient and Discussed with Family
Impression/Plan
-
Acute hypoxic respiratory failure secondary to pneumonia, suspect aspiration
Severe sepsis 2/2 Aspiration PNA
Per daughter vomited last night
Currently on high flow, wean oxygen as tolerated. Does not use any home O2
Continue with DuoNebs
Pulmonary evaluation
History of ILD
Discussed with daughter admission, does not want speech evaluation and accepts comfort feeds. Since patient is requiring high flow at this time, NPO. Daughter aware
Continue with Zosyn
Follow blood culture
IVF
hold lasix
Chronic bilateral lower extremity swelling
UTI
hx of klebsiella and E. coli
Continue with Zosyn
Follow urine culture
hx of COPD
on trelegy
duoneb
Essential hypertension
Continue Cardizem, metoprolol
Hold losartan
Hypothyroidism
Synthroid
hx SSS s/p PPM
- continue BB
Peripheral neuropathy
Suspect CKD
Monitor renal function
IBS
Chronic pain syndrome/chronic opioid dependence
Continue with Percocet(hold for sedation), Lyrica
Restless leg syndrome
Chronic neurogenic bladder
Bladder scan
Anxiety/depression
DVT prophylaxis
Heparin
I spent a total of 78 minutes with the patient or on the floor. More than 50% of this time involved counseling and coordination of care.
--- NOTE | 2024-09-03 14:27 | CON.PUL ---
Consultation
Consultation Request
Date/Time Consultation Requested: 09/03/2024
Date/Time Consultation Performed: 09/03/2024
Requesting Provider: Dr. Snyder
Performing Provider: Dr. Alberto Riddle
Reason for Consultation: Hypoxemic respiratory failure-history of interstitial lung disease
Medical History
-
History of Present Illness:
83-year-old woman with past medical history of hypothyroidism, peripheral neuropathy, chronic pain syndrome on opioids, chronic neurogenic bladder, obesity,? Interstitial lung disease came from home complaining of shortness of breath.
Apparently patient vomited last night. Patient was found to be hypoxic in the emergency room. Required high flow oxygen.
-
Patient declined speech evaluation. Daughter and patient accept possibility of aspiration.
Past Medical History
Past Medical History: Other (See assessment and plan)
Social History
Tobacco: Non-smoker
Alcohol: None
Occupational Exposures: Denies
Environmental Exposures: Denies
Family History
Family History: Reviewed & Not Pertinent
Allergies / Home Medications
Allergies
Allergy/AdvReac Type Severity Reaction Status Date / Time
Sulfa (Sulfonamide Allergy Rash Verified 09/03/24 09:30
Antibiotics)
Home Medications
�Medication �Instructions �Recorded �Confirmed �Last Taken �Type
dicyclomine 10 mg capsule 10 mg PO TIDPRN PRN IBS 08/19/16 09/03/24 11/16/17 12:00 History
diltiazem HCl 300 mg 300 mg PO DAILY Heart 08/19/16 09/03/24 12/11/22 History
capsule,extended release 24 hr disease/condition
metoprolol tartrate 100 mg tablet 100 mg PO BID Blood pressure 01/17/21 09/03/24 12/11/22 History
duloxetine 30 mg capsule,delayed 30 mg PO HS Mental Health/Anxiety 12/03/21 09/03/24 12/11/22 History
release
duloxetine 60 mg capsule,delayed 60 mg PO DAILY Mental 12/03/21 09/03/24 12/11/22 History
release Health/Anxiety
fluticasone fur. 200 mcg-umeclid 1 inh inhalation R DAILY 12/03/21 09/03/24 12/11/22 History
62.5 mcg-vilant 25 mcg Lung/breathing issues
inhalat.powder (Trelegy Ellipta)
furosemide 40 mg tablet 40 mg PO DAILY Fluid 12/03/21 09/03/24 12/11/22 History
retention/Swelling
losartan 50 mg tablet 50 mg PO DAILY Blood pressure 12/03/21 09/03/24 12/11/22 History
bisacodyl 10 mg rectal suppository 10 mg SD [id number] PRN if no BM/MOM 01/01/22 09/03/24 Unknown History
(Dulcolax (bisacodyl)) ineffective
acetaminophen 325 mg tablet 650 mg PO Q4HPRN PRN mild 07/09/22 09/03/24 Unknown History
pain/fever>100.4
lidocaine 4 % topical patch 1 patch topical DAILY 07/09/22 09/03/24 12/11/22 History
mirtazapine 30 mg tablet 30 mg PO HS Sleep 07/09/22 09/03/24 12/11/22 History
cyanocobalamin (vitamin B-12) 1,000 mcg sublingual WE 12/12/22 09/03/24 Unknown History
1,000 mcg sublingual tablet
diclofenac sodium 1 % topical gel 4 g topical Q6HPRN PRN apply to 12/12/22 09/03/24 Unknown History
left shoulder
loperamide 2 mg tablet 2 mg PO Q6HPRN PRN diarrhea 12/12/22 09/03/24 Unknown History
aspirin 81 mg chewable tablet 81 mg PO DAILY Blood Clot 07/31/23 09/03/24 Unknown History
Prevention/Tx
calcium carbonate 500 mg PO DAILYPRN PRN acid 07/31/23 09/03/24 Unknown History
indigestion
ipratropium 0.5 mg-albuterol 3 mg 3 ml inhalation R Q6HPRN PRN sob 07/31/23 09/03/24 Unknown History
(2.5 mg base)/3 mL nebulization
soln
omeprazole 20 mg tablet,delayed 40 mg PO HS Gastrointestinal Issue 07/31/23 09/03/24 Unknown History
release
ropinirole 3 mg tablet 3 mg PO HS Neurological Condition 07/31/23 09/03/24 Unknown History
triamcinolone acetonide 0.1 % 1 applic dental QIDPRN PRN canker 07/31/23 09/03/24 Unknown History
dental paste sores
alprazolam 0.25 mg tablet (Xanax) 0.25 mg PO BIDPRN PRN anxiety #10 08/04/23 09/03/24 Unknown Rx
tabs
carboxymethylcellulose sodium 0.5 2 drp BOTH EYES QIDPRN PRN dry eye 02/14/24 09/03/24 Unknown History
% eye drops in a dropperette
(Refresh Plus)
cranberry extract 425 mg capsule 425 mg PO DAILY Supplement 02/14/24 09/03/24 Unknown History
lactulose 10 gram/15 mL oral 20 g PO HSPRN PRN constipation 02/14/24 09/03/24 Unknown History
solution
melatonin 3 mg tablet 3 mg PO HS Sleep 02/14/24 09/03/24 Unknown History
oxycodone-acetaminophen 5 mg-325 1 tab PO Q4H Pain 02/14/24 09/03/24 Unknown History
mg tablet (Percocet)
pregabalin 75 mg capsule 75 mg PO BID Pain 02/14/24 09/03/24 Unknown History
sennosides 8.6 mg-docusate sodium 2 tab-cap PO QPM Constipation 02/14/24 09/03/24 Unknown History
50 mg tablet (Senna-S)
sodium chloride 0.65 % nasal spray 1 spray intranasal QIDPRN PRN 02/14/24 09/03/24 Unknown History
aerosol (Deep Sea Nasal) congestion/dryness
Acidophilus/Goat Milk Capsule 1 cap PO DAILY 09/03/24 09/03/24 Unknown History
cholecalciferol (vitamin D3) 1,250 1,250 mcg PO QMONTH 09/03/24 09/03/24 Unknown History
mcg (50,000 unit) tablet
ferrous sulfate 325 mg (65 mg 325 mg PO MOWEFR@1230 09/03/24 09/03/24 Unknown History
iron) tablet
fluticasone propionate 50 2 spray intranasal HS 09/03/24 09/03/24 Unknown History
mcg/actuation nasal
spray,suspension
levothyroxine 137 mcg tablet 137 mcg PO DAILY 09/03/24 09/03/24 Unknown History
(Synthroid)
Review of Systems
-
History Source: Patient
All other systems: Negative unless noted
Vitals / Labs / Diagnostic Testing
Vital Signs
Temp Pulse Resp BP Pulse Ox
100.4 F H 95 27 103/56 97
09/03/24 14:24 09/03/24 13:45 09/03/24 10:30 09/03/24 13:00 09/03/24 13:45
Lab Data
09/03/24 09:32
09/03/24 09:32
Microbiology
09/03/24 09:32 Nasal Swab Influenza Types A & B (ANAIS) - Final
Negative for Influenza A & B, NAAT
Negative results must be combined with clinical observations
and patient history.
Nucleic Acid Amplification test (NAAT)performed on the
[employer] platform.
Diagnostic Testing:
Physical Exam
-
HEENT: Normocephalic
Cardiovascular: S1/S2
Respiratory: Wheeze (n) and Rales
GI: Soft and Distended (Obese)
Neurology: No Motor Deficits and Other (Somnolent but arousable. Coughing on demand.)
Skin: Warm
General: Comfortable
Assessment
-
83-year-old woman with past medical history noted, used to follow-up in our office-last visit in 2022. Follow-up for mild bronchiectasis with right middle lobe chronic atelectasis. Lost to follow-up. Recommended to get CAT scan but did not follow
through. Recommended to get sleep study does not follow through. Back with shortness of breath and hypoxemia. Has episode of vomiting last night. Since then with respiratory symptoms. Chest x-ray showed bilateral infiltrates. Patient on high
flow oxygen per
Hypoxemic respiratory failure requiring high flow oxygen.
Leukocytosis/fever
Chest x-ray 09/03/2024: B findings most likely representing pneumonia. Bilateral parenchymal opacities, right greater than left.
Suspect/pneumonitis.
Vomiting prior admission.
Abnormal UA-possible urinary tract infection
Conditions present prior admission:
Interstitial lung disease last time seen in our office 09/17/2022.
Bronchiectasis/right middle lobe volume loss. Repeat CT chest recommended but patient never followed through.
Patient is a lifelong non-smoker.
Previously Trelegy.
Snoring-sleep study recommended patient never followed through.
Sick sinus syndrome
Hypertension
Hypothyroidism
Chronic idiopathic neuropathy
Irregular bowel syndrome
Chronic narcotic dependence for chronic pain due to arthritis
Obesity
Neurogenic bladder self-catheterization
Prior cholecystectomy
Prior thyroidectomy
Peripheral arterial disease-follows up with Dr. Aguilera. Significant peripheral dural disease found.
Sick sinus syndrome
Assessment and plan:
Agree, clinical picture suggest aspiration pneumonia/pneumonitis.
Does have low grade fever and leukocytosis.
Currently on high flow oxygen-wean down as able-improved since admission, pulse ox 97% 60% FiO2 in the emergency room. Maintain pulse ox above 90%.
-
Patient does not have interstitial lung disease based on [facility] notes reviewed by me. Most recent CT chest 2020 showed right middle lobe bronchiectasis with chronic right middle lobe volume loss.
This has been documented-last time seen in our office in 2022. Used to follow-up with Dr. Kate -she declined last appointment.
Okay to continue with inhalers-usually on Trelegy.
Not bronchospastic on exam-no indication for systemic corticosteroids.
Nebulizers as needed
Acapella device for secretion clearance
-
Will need radiographic follow-up depending on symptoms.
-
Continue antibiotics-Zosyn for now.
Sputum culture
Blood cultures
Narrow down antibiotics based on cultures
-
Monitor fever and leukocytosis
-
Looks like she has a UTI as well-cultures pending.
Antibiotic should cover as well.
-
Daughter at the bedside: Concerned about the patient being very sleepy. During my evaluation patient was able to be aroused, open eyes, coughing on demand, moving 4 extremities. Suspect patient is very tired.
Continue to monitor mental status.
She also takes multiple sedative-she has chronic pain and she takes narcotics on a daily basis. Monitor closely.
-
Will follow
[2024-09-03] MEDS: MUCINEX PO (16:54)
--- NOTE | 2024-09-03 17:44 | PTCARENOTE ---
Er called to report I was discharging another pt. ER became frustrated . I caled back and got report
[2024-09-03] MEDS: PERCOCET 5/325 PO ×2 (18:05→21:59)
[2024-09-03] MEDS: SENOKOT-S PO (18:07)
[2024-09-03] MEDS: PERCOCET 5/325 1 TABLET PO (18:28)
[2024-09-03] MEDS: LOVENOX 40 MG SC (18:29)
--- NOTE | 2024-09-03 18:29 | PTCARENOTE ---
Pt btrought from ER on HF very restless Pain med was not given at 430 due to being sleepy , now restless and awake giving percocet
[2024-09-03] MEDS: LOPRESSOR 100 MG PO (19:50)
[2024-09-03] MEDS: MUCINEX 600 MG PO (19:50)
[2024-09-03] MEDS: OCEAN, SALINE MIST 1 SPRAYS NASAL (19:54)
--- NOTE | 2024-09-03 22:16 | PTCARENOTE ---
Rec'd pt at 18:45 very restless struggling to sit up in bed, AAOx3. Repositioning provided, pt sitting up in bed, but continues with restless movements, unable to sit still. Scheduled lyrica, lopressor, mucinex given per JUN. Upon assessment about
an hour later, pt very drowsy, lethargic. Opens eyes to verbal stimuli and follows simple commands, but does not keep eyes open or stay alert. Unsafe to give scheduled percocet at this time. Will hold off on scheduled 22:00 medications until pt is
alert and able to safely follow commands. Bed alarm in place for pt safety. IVF maintained at ordered rate. High flow O2 maintained, pt satting 96%.
[2024-09-03] MEDS: MELATONIN PO (23:14)
[2024-09-03] MEDS: PROTONIX PO (23:14)
[2024-09-03] MEDS: REMERON PO (23:15)
[2024-09-03] MEDS: CYMBALTA DELAYED RELEASE PO (23:15)
[2024-09-03] MEDS: REQUIP PO (23:15)
[2024-09-04] VITALS (17 sets, daily range): BP systolic 121–189; BP diastolic 62–113; BMI 34.8
[2024-09-04] MEDS: PERCOCET 5/325 PO (01:46)
[2024-09-04] MEDS: ZOSYN 50 IV ×2 (03:16→10:29)
[2024-09-04 03:49] LABS: % Basophils 0.5 % (0-2); % Eosinophils 0.8 % (0-6); % Immature Granulocytes 0.5 % (0-0.5); % Lymphocytes 14.3 % (20.5-51.1); % Monocytes 6.4 % (1.7-9.3); % Neutrophils 77.5 % (42.2-75.2); Absolute Basophils 0.1 10^3/uL (0-0.2); Absolute Eosinophils 0.1 10^3/uL (0-0.7); Absolute Immature Granulocytes 0.1 10^3/uL (0-0.05); Absolute Lymphocytes 2.3 10^3/uL (1.2-3.4); Absolute Neutrophils 12.2 10^3/uL (1.4-6.5); Hematocrit 36.9 % (37.0-47.0); Hemoglobin 11.8 g/dL (12.0-16.0); Mean Corpuscular Hgb 27.8 pg (27.0-31.0); Mean Corpuscular Volume 86.8 fL (81.0-99.0); Mean Platelet Volume 10.2 fL (7.4-10.4); Nucleated Red Blood Cells % 0 %; Platelet Count 139 10^3/uL (130-400); Red Blood Cell Count 4.25 10^6/uL (4.20-5.40); Red Cell Dist. Width 16.6 % (11.5-14.5); White Blood Cell Count 15.7 10^3/uL (4.8-10.8)
[2024-09-04 04:20] LABS: Blood Urea Nitrogen 21 mg/dl (7-17); Calcium 8.4 mg/dl (8.4-10.2); Carbon Dioxide 26 mmol/L (22-30); Chloride 109 mmol/L (98-107); Estimated Creatinine Clearance 51 ml/min; Glucose 83 mg/dl (70-99); Potassium 4.7 mmol/L (3.5-5.1); Sodium 144 mmol/L (135-145); eGFR 50.48
[2024-09-04] MEDS: SYNTHROID 137 MCG PO (04:23)
[2024-09-04] MEDS: PERCOCET 5/325 1 TABLET PO ×5 (04:23→19:43)
[2024-09-04] MEDS: OCEAN, SALINE MIST 1 SPRAYS NASAL (04:23)
--- NOTE | 2024-09-04 04:36 | PTCARENOTE ---
Pt with BPs>180 systolic. MANAGER [employer] notified, will continue to assess and report.
[2024-09-04] MEDS: LOPRESSOR 100 MG PO ×2 (05:45→19:42)
[2024-09-04] MEDS: XANAX 0.25 MG PO (05:56)
--- NOTE | 2024-09-04 05:58 | PTCARENOTE ---
Pt alert, oriented, but very uncomfortable in bed. Repositioning provided, pt attempted and unable to have BM on BP. Pt continues with restlessness, frequently ringing call casarez but unable to articulate what her needs are, just stating she feels
uncomfortable. 08:00 metoprolol given early at [facility] recommendation d/t BP 189/89. Pt temp 100.3. Does not meet parameters for tylenol at this time. Agreeable to take PRN xanax at this time. Call casarez within reach. Bed alarm in place for pt safety.
[2024-09-04] MEDS: SYMBICORT 160/4.5 MCG INHALER 2 PUFF INH ×2 (07:45→18:13)
[2024-09-04] MEDS: SPIRIVA RESPIMAT 2.5 MCG 2 PUFF INH (07:45)
[2024-09-04] MEDS: LIDOCAINE 4% PATCH 2 PATCH TOPICAL (08:01)
[2024-09-04] MEDS: VISBIOME 1 CAP PO (08:01)
[2024-09-04] MEDS: CARDIZEM CD 300 MG PO (08:01)
[2024-09-04] MEDS: MUCINEX 600 MG PO ×2 (08:01→19:42)
[2024-09-04] MEDS: LYRICA 75 MG PO ×2 (08:01→19:42)
[2024-09-04] MEDS: CYMBALTA DELAYED RELEASE 60 MG PO (08:01)
[2024-09-04] MEDS: LOW STRENGTH ASPIRIN 81 MG PO (08:01)
[2024-09-04] MEDS: NSS 1000 IV (10:30)
--- NOTE | 2024-09-04 10:44 | W.PN.PUL3 ---
Today's Communication / Plan
-
- Follow-up on blood cultures
- Wean oxygen as tolerated, transition to mid flow and monitor
- Outpatient follow-up with pulmonary clinic. Patient will need a follow-up CT in about 8 weeks time to follow-up on prior noted bronchiectasis in right middle lobe.
Assessment
-
83-year-old woman with past medical history noted, used to follow-up in our office-last visit in 2022. Follow-up for mild bronchiectasis with right middle lobe chronic atelectasis. Lost to follow-up. Recommended to get CAT scan but did not follow
through. Recommended to get sleep study does not follow through. Back with shortness of breath and hypoxemia. Has episode of vomiting last night. Since then with respiratory symptoms. Chest x-ray showed bilateral infiltrates. Patient on high
flow oxygen per
Hypoxemic respiratory failure requiring high flow oxygen.
Leukocytosis/fever
Chest x-ray 09/03/2024: B findings most likely representing pneumonia. Bilateral parenchymal opacities, right greater than left.
Suspect/pneumonitis.
Vomiting prior admission.
Abnormal UA-possible urinary tract infection
Conditions present prior admission:
Interstitial lung disease last time seen in our office 09/17/2022.
Bronchiectasis/right middle lobe volume loss. Repeat CT chest recommended but patient never followed through.
Patient is a lifelong non-smoker.
Previously Trelegy.
Snoring-sleep study recommended patient never followed through.
Sick sinus syndrome
Hypertension
Hypothyroidism
Chronic idiopathic neuropathy
Irregular bowel syndrome
Chronic narcotic dependence for chronic pain due to arthritis
Obesity
Neurogenic bladder self-catheterization
Prior cholecystectomy
Prior thyroidectomy
Peripheral arterial disease-follows up with Dr. Aguilera. Significant peripheral dural disease found.
Sick sinus syndrome
Assessment and plan:
#1. Acute hypoxic respiratory failure with Bilateral aspiration pneumonia, right greater than left.
-Continue antibiotics, continue high flow nasal cannula for now, currently on 40 L and 50% FiO2. Trial of mid flow, keep saturations above 90%.
-Follow-up on cultures, if stay negative, could consider switching to Unasyn or Augmentin for a total of 7 days of therapy.
-No bronchospasm on exam. No prior history of smoking per patient. Unclear if patient needs triple inhaled therapy. She ideally needs pulmonary function testing as outpatient with close follow-up and possibly stepdown of her inhaler therapy.
-No indication for steroids for now.
-Recommend resumption of outpatient follow-up with Dr. Alexander as outpatient
-Needs follow-up CT scan in about 6 to 8 weeks time to follow-up on prior noted right middle lobe bronchiectasis and right middle lobe volume loss.
-Acapella device for secretion clearance
Total time spent on this consultation/encounter __38__ minutes which includes review of history, physical exam, medications, laboratory data, personal review of imaging, extensive review of outpatient records, discussion with care team and
respiratory therapy.
Subjective Data
-
Date of Service:
Date of Service: September 04, 2024
Subjective:
Patient comfortably sitting in bed, no acute distress, does report cough, decreased expectoration.
Review of Systems
Genitourinary: Other (No new pulmonary symptoms. No hemoptysis. Minimal expectoration.)
Objective Data
Data Reviewed
Vital Signs / I&O / Oxygen:
Vital Signs
Temp Pulse Resp BP Pulse Ox
98.8 F 76 20 181/80 95
09/04/24 07:49 09/04/24 07:53 09/04/24 07:53 09/04/24 06:00 09/04/24 07:54
Intake and Output
09/03/24 09/04/24 09/05/24
06:59 06:59 06:59
Output Total 1200 / 1200
Balance -1200 / -1200
SaO2 95
Nasal Cannula flow liters per 40
minute
Physical Exam
General: Comfortable
HEENT: Normocephalic
Respiratory: Rhonchi (Mostly in the posterior lung base, on the right side. Rest of the exam fairly clear, no wheezing)
GI: Soft and Non Distended
Neurology: Awake and Alert
Skin: Warm
Labs/Micro/Reports
Lab Data
09/04/24 03:39
09/04/24 03:39
Microbiology
09/03/24 09:32 Blood/Venous Blood Culture - Preliminary
No Growth in 24 hours- Final report to follow
09/03/24 10:44 Urine Urine Culture - Preliminary
Gram negative bacilli
09/03/24 09:32 Nasal Swab Influenza Types A & B (ANAIS) - Final
Negative for Influenza A & B, NAAT
Negative results must be combined with clinical observations
and patient history.
Nucleic Acid Amplification test (NAAT)performed on the
[employer] platform.
--- NOTE | 2024-09-04 14:28 | W.PN.HOSP.TC ---
Today's Communication/Plan
-
Monitor vital signs see plan
Wean oxygen as tolerated
Start IDDS6 diet
Discussed with daughter
Continue with antibiotics
DC further fluids
Restart losartan
Assessment / Plan
Assessment / Plan
General: Well Nourished and No Apparent Distress
HEENT: NormoCephalic, Anicteric and Moist mucous membranes
Respiratory: Clear and Rhonchi; No Wheezes
Cardiac: S1/S2, Regular Rhythm and Tachycardia
GI: Soft, Non Tender, Non Distended and Normal Bowel Sounds
Genito-urinary: klein
Musculoskeletal: Edema, Left Lower Extremity and Edema, Right Lower Extremity
Neuro: Awake and Alert
Psych: Calm
Acute hypoxic respiratory failure secondary to pneumonia, suspect aspiration
Severe sepsis 2/2 Aspiration PNA
Per daughter vomited last night
Currently on high flow, wean oxygen as tolerated. Does not use any home O2
Continue with DuoNebs
Pulmonary following
History of bronchiectasis
Discussed with daughter admission, does not want speech evaluation and accepts comfort feeds. She is now patient on mid flow, started IDD 6 diet. Daughter aware
Continue with Zosyn
Follow blood culture
hold lasix, monitor volume status
Chronic bilateral lower extremity swelling
UTI
hx of klebsiella and E. coli
Continue with Zosyn
Follow urine culture
hx of COPD
on trelegy
duoneb
Essential hypertension
Continue Cardizem, metoprolol
Restart losartan
Hypothyroidism
Synthroid
hx SSS s/p PPM
- continue BB
Peripheral neuropathy
Suspect CKD
Monitor renal function
IBS
Chronic pain syndrome/chronic opioid dependence
Continue with Percocet(hold for sedation), Lyrica
Restless leg syndrome
Chronic neurogenic bladder
Bladder scan
Anxiety/depression
DVT prophylaxis
Heparin
I spent a total of 52 minutes with the patient or on the floor. More than 50% of this time involved counseling and coordination of care.
Anticipated Discharge: > 48 hours
Subjective/Interval History
-
Date of Service: September 04, 2024
denies pain
Objective Data
-
Labs:
Laboratory Results
09/04/24
03:39
WBC 15.7 H
Hgb 11.8 L
Hct 36.9 L
Plt Count 139
Sodium 144
Potassium 4.7
Chloride 109 H
Carbon Dioxide 26
BUN 21 H
Creatinine 1.1 H
Glucose 83
Calcium 8.4
Vital Signs:
Vital Signs
Temp Pulse Resp BP Pulse Ox
98.1 F 76 20 181/80 95
09/04/24 11:16 09/04/24 07:53 09/04/24 07:53 09/04/24 06:00 09/04/24 11:46
I&O
09/03/24 09/04/24 09/05/24
06:59 06:59 06:59
Output Total 1200 / 1200
Balance -1200 / -1200
[2024-09-04] MEDS: COZAAR 50 MG PO (16:51)
[2024-09-04] MEDS: SENOKOT-S 2 TABLET PO (16:51)
[2024-09-04] MEDS: ZOSYN 100 IV ×2 (16:52→21:42)
[2024-09-04] MEDS: LOVENOX 40 MG SC (16:52)
[2024-09-04] MEDS: CYMBALTA DELAYED RELEASE 30 MG PO (19:42)
[2024-09-04] MEDS: REQUIP 3 MG PO (19:42)
[2024-09-04] MEDS: REMERON 30 MG PO (19:42)
[2024-09-04] MEDS: PROTONIX 40 MG PO (19:42)
[2024-09-04] MEDS: MELATONIN 3 MG PO (19:43)
--- NOTE | 2024-09-04 19:43 | PTCARENOTE ---
day shift note, see nursing flowsheet. pt weaned off of high flow. currently on 6 liters o2 with sats in 90s. pt with only occasional c/o slight shortness of breath. occasional nionproductive cough. klein drained 700 mls yellow urine. per Dori
Madai hoskins klein was changed on 08/19.
[2024-09-05] VITALS (16 sets, daily range): BP systolic 106–177; BP diastolic 45–108; PULSE 69; O2SAT 90; BMI 35.0
[2024-09-05] MEDS: PERCOCET 5/325 1 TABLET PO ×6 (00:07→19:33)
[2024-09-05] MEDS: TUMS CHEWABLE TABLET 200 MG PO (01:44)
--- NOTE | 2024-09-05 02:18 | PTCARENOTE ---
Addendum entered by Yasemin Buckner RN 09/05/24 02:20:
*compazine
Original Note:
Patient with episode of nausea/ dry heaving overnight. call center support representative provider made aware and ordered zofran. Remains on 6 liters NC.
[2024-09-05] MEDS: COMPAZINE 5 MG IV (02:22)
[2024-09-05] MEDS: ZOSYN 100 IV ×4 (04:02→21:51)
[2024-09-05] MEDS: SYNTHROID 137 MCG PO (04:18)
[2024-09-05 04:25] LABS: % Basophils 0.2 % (0-2); % Eosinophils 1.8 % (0-6); % Immature Granulocytes 0.8 % (0-0.5); % Lymphocytes 8.8 % (20.5-51.1); % Monocytes 6.9 % (1.7-9.3); % Neutrophils 81.5 % (42.2-75.2); Absolute Eosinophils 0.2 10^3/uL (0-0.7); Absolute Immature Granulocytes 0.1 10^3/uL (0-0.05); Absolute Lymphocytes 1.1 10^3/uL (1.2-3.4); Absolute Monocytes 0.9 10^3/uL (0.1-0.6); Absolute Neutrophils 10.6 10^3/uL (1.4-6.5); Hemoglobin 10.3 g/dL (12.0-16.0); Mean Corp Hgb Conc. 32.2 g/dL (33.0-37.0); Mean Corpuscular Hgb 27.8 pg (27.0-31.0); Mean Corpuscular Volume 86.5 fL (81.0-99.0); Mean Platelet Volume 10.1 fL (7.4-10.4); Nucleated Red Blood Cells % 0 %; Platelet Count 150 10^3/uL (130-400); Red Cell Dist. Width 15.9 % (11.5-14.5)
[2024-09-05 04:55] LABS: Blood Urea Nitrogen 20 mg/dl (7-17); Calcium 8.5 mg/dl (8.4-10.2); Carbon Dioxide 27 mmol/L (22-30); Chloride 107 mmol/L (98-107); Estimated Creatinine Clearance 51 ml/min; Glucose 101 mg/dl (70-99); Potassium 3.4 mmol/L (3.5-5.1); Sodium 143 mmol/L (135-145); eGFR 50.48
[2024-09-05] MEDS: SYMBICORT 160/4.5 MCG INHALER 2 PUFF INH ×2 (07:32→19:49)
[2024-09-05] MEDS: SPIRIVA RESPIMAT 2.5 MCG 2 PUFF INH (07:32)
[2024-09-05] MEDS: DESENEX/MITRAZOL/ZEASORB 1 APPLIC TOPICAL ×2 (09:23→19:33)
[2024-09-05] MEDS: KCL ELIXIR 40 MEQ PO (09:23)
[2024-09-05] MEDS: LIDOCAINE 4% PATCH 2 PATCH TOPICAL (09:24)
[2024-09-05] MEDS: CARDIZEM CD 300 MG PO (09:25)
[2024-09-05] MEDS: COZAAR 50 MG PO (09:25)
[2024-09-05] MEDS: CYMBALTA DELAYED RELEASE 60 MG PO (09:26)
[2024-09-05] MEDS: VISBIOME 1 CAP PO (09:26)
[2024-09-05] MEDS: LOW STRENGTH ASPIRIN 81 MG PO (09:26)
[2024-09-05] MEDS: LYRICA 75 MG PO ×2 (09:26→19:34)
[2024-09-05] MEDS: LOPRESSOR 100 MG PO ×2 (09:26→19:34)
[2024-09-05] MEDS: MUCINEX 600 MG PO ×2 (09:26→19:34)
[2024-09-05] MEDS: OCEAN, SALINE MIST 1 SPRAYS NASAL ×3 (09:26→19:34)
--- NOTE | 2024-09-05 12:19 | W.PN.PUL3 ---
Today's Communication / Plan
-
- Continue to wean oxygen as tolerated
- Assess for need for home oxygen prior to discharge
- Recommend total 7 days of antibiotics could transition to Augmentin p.o.
- Outpatient follow-up with pulmonary clinic in 4 to 6 weeks time, with Dr. Alexander
- Pulmonary service will sign off, please call as needed.
Assessment
-
83-year-old woman with past medical history noted, used to follow-up in our office-last visit in 2022. Follow-up for mild bronchiectasis with right middle lobe chronic atelectasis. Lost to follow-up. Recommended to get CAT scan but did not follow
through. Recommended to get sleep study does not follow through. Back with shortness of breath and hypoxemia. Has episode of vomiting last night. Since then with respiratory symptoms. Chest x-ray showed bilateral infiltrates. Patient on high
flow oxygen per
Hypoxemic respiratory failure requiring high flow oxygen.
Leukocytosis/fever
Chest x-ray 09/03/2024: B findings most likely representing pneumonia. Bilateral parenchymal opacities, right greater than left.
Suspect/pneumonitis.
Vomiting prior admission.
Abnormal UA-possible urinary tract infection
Conditions present prior admission:
Interstitial lung disease last time seen in our office 09/17/2022.
Bronchiectasis/right middle lobe volume loss. Repeat CT chest recommended but patient never followed through.
Patient is a lifelong non-smoker.
Previously Trelegy.
Snoring-sleep study recommended patient never followed through.
Sick sinus syndrome
Hypertension
Hypothyroidism
Chronic idiopathic neuropathy
Irregular bowel syndrome
Chronic narcotic dependence for chronic pain due to arthritis
Obesity
Neurogenic bladder self-catheterization
Prior cholecystectomy
Prior thyroidectomy
Peripheral arterial disease-follows up with Dr. Aguilera. Significant peripheral dural disease found.
Sick sinus syndrome
Assessment and plan:
#1. Acute hypoxic respiratory failure with Bilateral aspiration pneumonia, right greater than left.
-Continue antibiotics, clinically improving. Patient transition to mid flow now, saturating 92% today..
-Follow-up on cultures, if stay negative, could consider switching to Unasyn or Augmentin for a total of 7 days of therapy.
-No bronchospasm on exam. No prior history of smoking per patient. Unclear if patient needs triple inhaled therapy. She ideally needs pulmonary function testing as outpatient with close follow-up and possibly stepdown of her inhaler therapy.
-No indication for steroids for now.
-Recommend resumption of outpatient follow-up with Dr. Alexander as outpatient
-Needs follow-up CT scan in about 6 to 8 weeks time to follow-up on prior noted right middle lobe bronchiectasis and right middle lobe volume loss.
-Acapella device for secretion clearance
Total time spent on this consultation/encounter __37__ minutes which includes review of history, physical exam, medications, laboratory data, personal review of imaging, extensive review of outpatient records, discussion with care team and
respiratory therapy.
Subjective Data
-
Date of Service:
Date of Service: September 05, 2024
Subjective:
Patient comfortably sitting in bed, down to mid flow now. Overall doing better.
Review of Systems
Genitourinary: Other (All 14 systems reviewed and negative except as stated above in the history of present illness.)
Objective Data
Data Reviewed
Vital Signs / I&O / Oxygen:
Vital Signs
Temp Pulse Resp BP Pulse Ox
98.4 F 62 21 158/71 91
09/05/24 07:17 09/05/24 11:42 09/05/24 11:42 09/05/24 11:42 09/05/24 11:42
Intake and Output
09/04/24 09/05/24 09/06/24
06:59 06:59 06:59
Intake Total 1670 / 1670
Output Total 1200 / 1200 1100 / 1100 300 / 300
Balance -1200 / -1200 570 / 570 -300 / -300
SaO2 91
Nasal Cannula flow liters per 6
minute
Physical Exam
General: Comfortable
HEENT: Normocephalic
Respiratory: Rhonchi (Mostly in the posterior lung base, on the right side. Rest of the exam fairly clear, no wheezing)
GI: Soft and Non Distended
Neurology: Awake and Alert
Skin: Warm
Labs/Micro/Reports
Lab Data
09/05/24 04:00
09/05/24 04:00
Microbiology
09/03/24 10:44 Urine Urine Culture - Preliminary
Klebsiella pneumoniae
Gram negative bacilli
09/03/24 10:44 Blood/Venous Blood Culture - Preliminary
No Growth in 48 hours- Final report to follow
09/03/24 09:32 Blood/Venous Blood Culture - Preliminary
No Growth in 48 hours- Final report to follow
09/03/24 20:41 Nose MRSA Screen - Final
No Methicillin Resistant Staphylococcus aureus isolated.
09/03/24 09:32 Nasal Swab Influenza Types A & B (ANAIS) - Final
Negative for Influenza A & B, NAAT
Negative results must be combined with clinical observations
and patient history.
Nucleic Acid Amplification test (NAAT)performed on the
[employer].
--- NOTE | 2024-09-05 12:38 | PTCARENOTE ---
Pt's assessment as documented. Aox3 but confused at times/with odd conversation. NSR with first degree heart block and occasional pacer spikes on tele monitor. Sating low to mid 90's on 6L MFNC. Pt incontinent of stool at times, using bedpan at
times. Benita care and klein care completed. OOB to chair with PT. Bed and chair alarm in place for safety. Call casarez within reach.
--- NOTE | 2024-09-05 13:14 | CM ---
Reviewed the chart notes and spoke with the patient at the bedside. 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 The patient reports being wheelchair bound at baseline. The patient anticipates being discharged back to [facility] when
medically stable. No precert required. CM continues to be available to patient/family and is monitoring medical plan for needs at discharge.
Plan: Discharge back to [facility] when medically stable. No precert required.
--- NOTE | 2024-09-05 13:27 | W.PN.HOSP.TC ---
Today's Communication/Plan
-
Monitor vitals
See plan
Now weaned down to 7 L, continue to keep weaning
Continue with antibiotics
Continue with current diet
PT eval
Monitor leukocytosis
Restart Lasix
Replete potassium
Assessment / Plan
Assessment / Plan
General: Well Nourished and No Apparent Distress
HEENT: NormoCephalic, Anicteric and Moist mucous membranes
Respiratory: Clear and Rhonchi; No Wheezes
Cardiac: S1/S2, Regular Rhythm and Tachycardia
GI: Soft, Non Tender, Non Distended and Normal Bowel Sounds
Genito-urinary: klein
Musculoskeletal: Edema, Left Lower Extremity and Edema, Right Lower Extremity
Neuro: Awake and Alert
Psych: Calm
Acute hypoxic respiratory failure secondary to pneumonia, suspect aspiration
Severe sepsis 2/2 Aspiration PNA
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
Was initially on high flow, now weaning and is on mid flow, wean oxygen as tolerated. Does not use any home O2
Continue with DuoNebs
Pulmonary following
History of bronchiectasis
Discussed with daughter admission, does not want speech evaluation and accepts comfort feeds. She is now patient on mid flow, started IDD 6 diet. Daughter aware
Continue with Zosyn
Follow blood culture
hold lasix, monitor volume status
Chronic bilateral lower extremity swelling
resume lasix
Hypokalemia
replete
Asymptomatic bacteriuria, sample was taken from old Klein
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
hx of klebsiella and E. coli
Follow urine culture
hx of COPD
on trelegy
duoneb
Essential hypertension
Continue Cardizem, metoprolol
Restart losartan
Hypothyroidism
Synthroid
hx SSS s/p PPM
- continue BB
Peripheral neuropathy
Suspect CKD
Monitor renal function
IBS
Chronic pain syndrome/chronic opioid dependence
Continue with Percocet(hold for sedation), Lyrica
Restless leg syndrome
Chronic neurogenic bladder
Bladder scan
Anxiety/depression
DVT prophylaxis
Heparin
PT/OT
I spent a total of 51 minutes with the patient or on the floor. More than 50% of this time involved counseling and coordination of care.
Anticipated Discharge: 24 - 48 hours
Subjective/Interval History
-
Date of Service: September 05, 2024
denies pain
Objective Data
-
Labs:
Laboratory Results
09/05/24
04:00
WBC 13.0 H
Hgb 10.3 L
Hct 32.0 L
Plt Count 150
Sodium 143
Potassium 3.4 L D
Chloride 107
Carbon Dioxide 27
BUN 20 H
Creatinine 1.1 H
Glucose 101 H
Calcium 8.5
Vital Signs:
Vital Signs
Temp Pulse Resp BP Pulse Ox
98.4 F 62 21 158/71 92
09/05/24 07:17 09/05/24 11:42 09/05/24 11:42 09/05/24 11:42 09/05/24 11:52
I&O
09/04/24 09/05/24 09/06/24
06:59 06:59 06:59
Intake Total 1670 / 1670
Output Total 1200 / 1200 1100 / 1100 300 / 300
Balance -1200 / -1200 570 / 570 -300 / -300
[2024-09-05] MEDS: LOVENOX 40 MG SC (18:05)
[2024-09-05] MEDS: SENOKOT-S 2 TABLET PO (18:05)
[2024-09-05] MEDS: MELATONIN 3 MG PO (19:33)
[2024-09-05] MEDS: REQUIP 3 MG PO (19:33)
[2024-09-05] MEDS: CYMBALTA DELAYED RELEASE 30 MG PO (19:33)
[2024-09-05] MEDS: PROTONIX 40 MG PO (19:34)
[2024-09-05] MEDS: REMERON 30 MG PO (19:39)
[2024-09-06] VITALS (14 sets, daily range): BP systolic 108–178; BP diastolic 51–109; BMI 34.5
[2024-09-06] MEDS: PERCOCET 5/325 1 TABLET PO ×7 (00:51→23:39)
[2024-09-06] MEDS: ZOSYN 100 IV ×4 (04:05→21:35)
[2024-09-06 04:23] LABS: % Basophils 0.4 % (0-2); % Eosinophils 3.7 % (0-6); % Immature Granulocytes 0.6 % (0-0.5); % Lymphocytes 13.9 % (20.5-51.1); % Monocytes 7.7 % (1.7-9.3); % Neutrophils 73.7 % (42.2-75.2); Absolute Eosinophils 0.4 10^3/uL (0-0.7); Absolute Immature Granulocytes 0.1 10^3/uL (0-0.05); Absolute Lymphocytes 1.4 10^3/uL (1.2-3.4); Absolute Monocytes 0.8 10^3/uL (0.1-0.6); Absolute Neutrophils 7.4 10^3/uL (1.4-6.5); Hematocrit 33.1 % (37.0-47.0); Hemoglobin 10.5 g/dL (12.0-16.0); Mean Corp Hgb Conc. 31.7 g/dL (33.0-37.0); Mean Corpuscular Hgb 27.5 pg (27.0-31.0); Mean Corpuscular Volume 86.6 fL (81.0-99.0); Mean Platelet Volume 10.2 fL (7.4-10.4); Nucleated Red Blood Cells % 0 %; Platelet Count 153 10^3/uL (130-400); Red Blood Cell Count 3.82 10^6/uL (4.20-5.40); Red Cell Dist. Width 16.2 % (11.5-14.5)
--- NOTE | 2024-09-06 04:39 | PTCARENOTE ---
No acute events overnight. Remains on 6 liters NC. Patient initially refused hygiene care but agreeable after multiple attempts.
[2024-09-06] MEDS: SYNTHROID 137 MCG PO (04:42)
[2024-09-06 04:46] LABS: Blood Urea Nitrogen 17 mg/dl (7-17); Calcium 8.5 mg/dl (8.4-10.2); Carbon Dioxide 26 mmol/L (22-30); Chloride 108 mmol/L (98-107); Estimated Creatinine Clearance 55 ml/min; Glucose 86 mg/dl (70-99); Sodium 142 mmol/L (135-145)
[2024-09-06] MEDS: SPIRIVA RESPIMAT 2.5 MCG 2 PUFF INH (07:28)
[2024-09-06] MEDS: SYMBICORT 160/4.5 MCG INHALER 2 PUFF INH ×2 (07:28→19:35)
[2024-09-06] MEDS: LOPRESSOR 100 MG PO ×2 (08:17→19:49)
[2024-09-06] MEDS: LOW STRENGTH ASPIRIN 81 MG PO (08:17)
[2024-09-06] MEDS: LYRICA 75 MG PO ×2 (08:17→19:49)
[2024-09-06] MEDS: LASIX 40 MG PO (08:17)
[2024-09-06] MEDS: MUCINEX 600 MG PO ×2 (08:17→19:48)
[2024-09-06] MEDS: COZAAR 50 MG PO (08:17)
[2024-09-06] MEDS: CYMBALTA DELAYED RELEASE 60 MG PO (08:17)
[2024-09-06] MEDS: VISBIOME 1 CAP PO (08:17)
[2024-09-06] MEDS: CARDIZEM CD 300 MG PO (08:17)
[2024-09-06] MEDS: LIDOCAINE 4% PATCH 2 PATCH TOPICAL (08:17)
[2024-09-06] MEDS: DESENEX/MITRAZOL/ZEASORB 1 APPLIC TOPICAL ×2 (08:18→19:48)
--- NOTE | 2024-09-06 10:19 | W.PN.HOSP.TC ---
Today's Communication/Plan
-
Wean oxygen
Continue with antibiotics
Repeat urine culture
Assessment / Plan
Assessment / Plan
Acute hypoxic respiratory failure secondary to pneumonia, suspect aspiration
Severe sepsis 2/2 Aspiration PNA
Per daughter vomited night before COOK RELIEF
Was initially on high flow, now weaning and is on mid flow, wean oxygen as tolerated. Does not use any home O2
Continue with DuoNebs
Pulmonary following
History of bronchiectasis
Dr. Tiwari discussed with daughter admission, does not want speech evaluation and accepts comfort feeds. She is now patient on mid flow, started IDD 6 diet. Daughter aware
Improving clinical status with less shortness of breath. White count normalized now.
Continue with Zosyn
Follow blood culture
Chronic bilateral lower extremity swelling
Continue lasix
Asymptomatic bacteriuria, sample was taken from old Hair
Chronic Hair when in bed
hx of klebsiella and E. coli
Follow urine culture-shows further microbial culture unclear to infection or colonization.
Repeat urine culture
hx of COPD
on trelegy
duoneb
Essential hypertension
Continue Cardizem, metoprolol
Restart losartan
Hypothyroidism
Synthroid
hx SSS s/p PPM
- continue BB
Peripheral neuropathy
Suspect CKD
Monitor renal function
IBS
Chronic pain syndrome/chronic opioid dependence
Continue with Percocet(hold for sedation), Lyrica
Restless leg syndrome
Chronic neurogenic bladder
Bladder scan
Anxiety/depression
DVT prophylaxis
Heparin
Continue PT/OT
Anticipated Discharge: 24 - 48 hours
Subjective/Interval History
-
Date of Service: September 06, 2024
Patient just finished breakfast it looks like she has a good appetite. Denies any nausea vomiting.
Also feeling improved with her breathing. Still requiring 6 L. Cough but not much productive. No chest pains or palpitations.
She is alert and oriented to place, month and the year.
She lives in [facility] facility for few years. She says she is pretty much wheelchair-bound.
Objective Data
-
Labs:
Laboratory Results
09/06/24
04:01
WBC 10.0
Hgb 10.5 L
Hct 33.1 L
Plt Count 153
Sodium 142
Potassium 4.0
Chloride 108 H
Carbon Dioxide 26
BUN 17
Creatinine 1.0
Glucose 86
Calcium 8.5
Vital Signs:
Vital Signs
Temp Pulse Resp BP Pulse Ox
98.0 F 70 16 153/72 96
09/06/24 06:35 09/06/24 07:30 09/06/24 07:30 09/06/24 06:00 09/06/24 08:38
I&O
09/05/24 09/06/24 09/07/24
06:59 06:59 06:59
Intake Total 1670 / 1670 1160 / 1160
Output Total 1100 / 1100 1100 / 1100
Balance 570 / 570 60 / 60
Review of Systems
-
Constitutional: Denies Fever
EENT: Denies Sore Throat
Abdomen/GI: Denies Abdominal Pain
Neuro: Denies Dizzy
Physical Exam
-
HEENT: Moist Mucous Membranes
Respiratory: Crackles (Right lower lobe); Negative Wheezes
Cardiac: Regular Rhythm and S1/S2
GI: Soft, Nontender, Nondistended and Normal Bowel Sounds
Musculoskeletal: Negative No Edema (Trace)
Neuro: AO x 3
Psych: Calm; Negative Confused
Data Reviewed
-
Labs: Labs Reviewed by me
[2024-09-06] MEDS: FEOSOL 325 MG PO (12:47)
--- NOTE | 2024-09-06 15:35 | PTCARENOTE ---
Pt desatting to high 80's on 6L. Increased to 10L MFNC with sats recovering to low 90's.
--- NOTE | 2024-09-06 16:10 | PTCARENOTE ---
Pt's assessment as documented. Aox3 but confused at times. NSR with first degree heart block on tele monitor. Sating low to mid 90's on 10L MFNC. Pt incontinent of stool at times, using bedpan at times. Benita care and klein care completed. Bed alarm
in place for safety. Call casarez within reach.
--- NOTE | 2024-09-06 17:03 | PTCARENOTE ---
Pt with elevated SBP, Dr Mon notified via TT. No further orders received at this time.
[2024-09-06] MEDS: SENOKOT-S PO (17:16)
[2024-09-06] MEDS: LOVENOX 40 MG SC (17:23)
[2024-09-06] MEDS: MELATONIN 3 MG PO (19:48)
[2024-09-06] MEDS: PROTONIX 40 MG PO (19:48)
[2024-09-06] MEDS: REMERON 30 MG PO (19:48)
[2024-09-06] MEDS: OCEAN, SALINE MIST 1 SPRAYS NASAL (19:49)
[2024-09-06] MEDS: REQUIP 3 MG PO (19:49)
[2024-09-06] MEDS: CYMBALTA DELAYED RELEASE 30 MG PO (19:49)
[2024-09-07] VITALS (16 sets, daily range): BP systolic 129–179; BP diastolic 60–119; PULSE 60; O2SAT 94–97; BMI 34.4
[2024-09-07] MEDS: SYNTHROID 137 MCG PO (04:16)
[2024-09-07] MEDS: PERCOCET 5/325 1 TABLET PO ×5 (04:16→20:57)
[2024-09-07] MEDS: ZOSYN 100 IV ×4 (04:16→22:24)
--- NOTE | 2024-09-07 06:13 | PTCARENOTE ---
No acute events overnight. Remains on 9 liters midflow. Bizarre behavior at times.
[2024-09-07] MEDS: SYMBICORT 160/4.5 MCG INHALER 2 PUFF INH ×2 (07:36→19:31)
[2024-09-07] MEDS: SPIRIVA RESPIMAT 2.5 MCG 2 PUFF INH (07:36)
[2024-09-07] MEDS: DESENEX/MITRAZOL/ZEASORB 1 APPLIC TOPICAL ×2 (07:43→20:57)
[2024-09-07] MEDS: OCEAN, SALINE MIST 1 SPRAYS NASAL ×2 (07:44→22:26)
[2024-09-07] MEDS: CARDIZEM CD 300 MG PO (07:45)
[2024-09-07] MEDS: LYRICA 75 MG PO ×2 (07:45→20:57)
[2024-09-07] MEDS: LASIX 40 MG PO (07:46)
[2024-09-07] MEDS: LOPRESSOR 100 MG PO ×2 (07:46→20:57)
[2024-09-07] MEDS: LOW STRENGTH ASPIRIN 81 MG PO (07:46)
[2024-09-07] MEDS: VISBIOME 1 CAP PO (07:46)
[2024-09-07] MEDS: MUCINEX 600 MG PO ×2 (07:47→20:57)
[2024-09-07] MEDS: CYMBALTA DELAYED RELEASE 60 MG PO (07:47)
[2024-09-07] MEDS: COZAAR 50 MG PO (07:47)
[2024-09-07] MEDS: LIDOCAINE 4% PATCH 2 PATCH TOPICAL (07:52)
--- NOTE | 2024-09-07 08:11 | PTCARENOTE ---
Pt AAOx2 forgetfull at [facility]. lungs are diiminished on 12 l Midflow. Pt has chronic klein .
--- NOTE | 2024-09-07 09:44 | PN.CDI ---
CDI
- -
CD[facility]:
Physician Documentation Request
Admit Date: 09/03/24 13:07
Dear Doctor Elieser,
Please review the following and provide your response in the progress notes.
Clinical Indicators:
Pt admitted with Severe Sepsis 2/2 Aspiration Pneumonia /Acute Hypoxic respiratory Failure
Documented per H&P and Progress notes 09/04-09/06 , ' Suspect CKD Monitor renal function...'
Renal functions are as below
09/03/24 09/04/24 09/05/24
09:32 03:39 04:00
Creatinine 1.1 H 1.1 H 1.1 H
eGFR 50.48 50.48 50.48
09/06/24
04:01
Creatinine 1.0
eGFR 56.60
Please Provide the suspected stage of CKD :
Stages of Chronic Kidney Disease*
Level Description GFR
G1 Normal or High >90
G2 Mildly decreased 60-89
G3a Mildly to moderately decreased 45-59
G3b Moderately to severely decreased 30-44
G4 Severely decreased 15-29
G5 Kidney failure <15
Use of terms such as suspected, likely, concern for, or probable (associated with a specific diagnosis that is being evaluated, monitored, or treated as if it exists) are acceptable and can be coded in the inpatient setting, when documented at the
time of discharge.
Thank you,
Lillie Best RN
[facility] Specialist
[place] [employer]
Please use your independent medical judgment in providing your response.
*Source: Kidney Disease: Improving Global Outcomes (KDIGO) 2012
--- NOTE | 2024-09-07 14:36 | W.PN.HOSP.TC ---
Today's Communication/Plan
-
Repeat chest x-ray
Continue with antibiotics
Wean oxygen as able
Assessment / Plan
Assessment / Plan
Acute hypoxic respiratory failure secondary to pneumonia, suspect aspiration
Severe sepsis 2/2 Aspiration PNA
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
Was initially on high flow, now weaning and is on mid flow, wean oxygen as tolerated. Does not use any home O2
Continue with DuoNebs
Pulmonary following
History of bronchiectasis
Dr. Snyder discussed with daughter admission, does not want speech evaluation and accepts comfort feeds. She is now patient on mid flow, started IDD 6 diet. Daughter aware
Improving clinical status with less shortness of breath. White count normalized now.
Continue with Zosyn
Not bacteremic
Repeat chest x-ray in view of persistent hypoxia though clinically improved to rule out any secondary complications of pneumonia.
Chronic bilateral lower extremity swelling
Continue lasix
Asymptomatic bacteriuria, sample was taken from old Hair
Chronic Hair when in bed
hx of klebsiella and E. coli
Follow urine culture-shows further microbial culture unclear to infection or colonization.
Repeat urine culture
hx of COPD
on trelegy
duoneb
Essential hypertension
Continue Cardizem, metoprolol
Restart losartan
Hypothyroidism
Synthroid
hx SSS s/p PPM
- continue BB
Peripheral neuropathy
Suspect CKD
Monitor renal function
IBS
Chronic pain syndrome/chronic opioid dependence
Continue with Percocet(hold for sedation), Lyrica
Restless leg syndrome
Chronic neurogenic bladder
Bladder scan
Anxiety/depression
DVT prophylaxis
Heparin
Continue PT/OT
Anticipated Discharge: 24 - 48 hours
Subjective/Interval History
-
Date of Service: September 07, 2024
Patient sitting in the chair feeling comfortable and having her lunch. She says she feels much better now able to complete full sentences.
Denies any nausea vomiting. No fever chills.
Denies any chest pain. Patient still requiring high FiO2 currently on 12 L. She was yesterday 6 L again patient is feeling better.
Objective Data
-
Vital Signs:
Vital Signs
Temp Pulse Resp BP Pulse Ox
99.0 F 60 16 135/65 97
09/07/24 11:35 09/07/24 10:00 09/07/24 10:00 09/07/24 10:00 09/07/24 10:00
I&O
09/06/24 09/07/24 09/08/24
06:59 06:59 06:59
Intake Total 1160 / 1160 1400 / 1400 100 / 100
Output Total 1100 / 1100 3200 / 3200
Balance 60 / 60 -1800 / -1800 100 / 100
Review of Systems
-
EENT: Denies Sore Throat
Abdomen/GI: Denies Abdominal Pain, Nausea or Vomiting
Neuro: Denies Dizzy
Physical Exam
-
General: No Apparent Distress
HEENT: Moist Mucous Membranes
Respiratory: Crackles (Right base) and Non Labored Respirations; Negative Wheezes or Accessory Resp Muscle Use
Cardiac: Regular Rhythm and S1/S2; Negative Tachycardic
GI: Soft
Neuro: AO x 3
[2024-09-07] MEDS: XANAX 0.25 MG PO (16:53)
[2024-09-07] MEDS: SENOKOT-S 2 TABLET PO (16:53)
--- NOTE | 2024-09-07 16:56 | CM ---
Patient from [facility] with Dx Acute hypoxic respiratory failure secondary to pneumonia - suspect aspiration, Severe sepsis. O2 12 L midflow. Receiving IV Abx. PT/OT recommend skilled rehab. Per nursing; confused, forgetful. Chronic
latoya.
[facility];
provided update regarding patient's current O2 needs & that patient is participating with PT/OT with recommendaiton for skilled rehab.
The patient will return to [address] - ph for report [phone], fax [phone].
Plan follow patient's O2 needs.
Plan return to [facility] when medically ready.
[2024-09-07] MEDS: LOVENOX 40 MG SC (16:59)
[2024-09-07] MEDS: PROTONIX 40 MG PO (22:22)
[2024-09-07] MEDS: MELATONIN 3 MG PO (22:22)
[2024-09-07] MEDS: REQUIP 3 MG PO (22:22)
[2024-09-07] MEDS: CYMBALTA DELAYED RELEASE 30 MG PO (22:22)
[2024-09-07] MEDS: REMERON 30 MG PO (22:22)
[2024-09-08] VITALS (11 sets, daily range): BP systolic 130–173; BP diastolic 69–110; BMI 34.5
[2024-09-08] MEDS: PERCOCET 5/325 PO (01:23)
--- NOTE | 2024-09-08 04:21 | PTCARENOTE ---
Pt appearing to get rest throughout night. Respirations even spo2 95-96% on 12L. Pt taking oxygen tubing off in early intervention specialist, easily redirected. Pt had complaints of stuffy nose, nose pray given (see MAR). Assessment care and vitals as charted.
[2024-09-08] MEDS: ZOSYN 100 IV ×4 (05:01→21:59)
[2024-09-08] MEDS: SYNTHROID 137 MCG PO (05:02)
[2024-09-08] MEDS: PERCOCET 5/325 1 TABLET PO ×5 (05:02→20:05)
[2024-09-08 05:45] LABS: Hematocrit 37.5 % (37.0-47.0); Hemoglobin 11.7 g/dL (12.0-16.0); Mean Corp Hgb Conc. 31.2 g/dL (33.0-37.0); Mean Corpuscular Hgb 27.3 pg (27.0-31.0); Mean Corpuscular Volume 87.4 fL (81.0-99.0); Mean Platelet Volume 10.3 fL (7.4-10.4); Platelet Count 196 10^3/uL (130-400); Red Blood Cell Count 4.29 10^6/uL (4.20-5.40); Red Cell Dist. Width 15.8 % (11.5-14.5); White Blood Cell Count 10.7 10^3/uL (4.8-10.8)
[2024-09-08 06:06] LABS: Blood Urea Nitrogen 12 mg/dl (7-17); Calcium 8.8 mg/dl (8.4-10.2); Carbon Dioxide 36 mmol/L (22-30); Chloride 105 mmol/L (98-107); Estimated Creatinine Clearance 50 ml/min; Glucose 91 mg/dl (70-99); Potassium 3.3 mmol/L (3.5-5.1); Sodium 143 mmol/L (135-145); eGFR 50.48
--- NOTE | 2024-09-08 06:38 | PTCARENOTE ---
Pt morning labs showing k 3.3. OIL AGENT made aware, po ordered.
[2024-09-08] MEDS: SPIRIVA RESPIMAT 2.5 MCG 2 PUFF INH (07:26)
[2024-09-08] MEDS: SYMBICORT 160/4.5 MCG INHALER 2 PUFF INH ×2 (07:27→20:07)
[2024-09-08] MEDS: KCL 40 MEQ PO (08:21)
[2024-09-08] MEDS: COZAAR 50 MG PO (08:23)
[2024-09-08] MEDS: CARDIZEM CD 300 MG PO (08:23)
[2024-09-08] MEDS: LOW STRENGTH ASPIRIN 81 MG PO (08:24)
[2024-09-08] MEDS: MUCINEX 600 MG PO ×2 (08:24→20:05)
[2024-09-08] MEDS: VISBIOME 1 CAP PO (08:24)
[2024-09-08] MEDS: LYRICA 75 MG PO ×2 (08:25→20:05)
[2024-09-08] MEDS: LASIX 40 MG PO (08:27)
[2024-09-08] MEDS: CYMBALTA DELAYED RELEASE 60 MG PO (08:27)
[2024-09-08] MEDS: LOPRESSOR 100 MG PO ×2 (08:27→20:05)
[2024-09-08] MEDS: LIDOCAINE 4% PATCH 2 PATCH TOPICAL (08:29)
[2024-09-08] MEDS: DESENEX/MITRAZOL/ZEASORB 1 APPLIC TOPICAL ×2 (08:29→20:06)
[2024-09-08] MEDS: VITAMIN B-12 1000 MCG PO (08:47)
--- NOTE | 2024-09-08 09:25 | W.PN.HOSP.TC ---
Today's Communication/Plan
-
Check ultrasound of the right side of the lung
Continue with antibiotics
Transfer to [facility]
Assessment / Plan
Assessment / Plan
Acute hypoxic respiratory failure secondary to pneumonia, suspect aspiration
Severe sepsis 2/2 Aspiration PNA
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
Was initially on high flow, now downt to 2l. Does not use any home O2
No active bronchospasm-use DuoNebs as needed
history of bronchiectasis
Dr. Snyder discussed with daughter admission, does not want speech evaluation and accepts comfort feeds. She is now patient on mid flow, started IDD 6 diet. Daughter aware
Improving clinical status with less shortness of breath. White count normalized now.
Continue with Zosyn
Not bacteremic
Yesterday repeat chest x-ray was done in view of persistent hypoxia though clinically improved to rule out any secondary complications of pneumonia. Clinically she has improved from pneumonia standpoint-currently without fevers, normalized white
count, tolerating diet. Oxygenation again today is good currently on 2 L. Unclear why she had a transient increase need of FiO2 yesterday. She has a chest x-ray showing increasing consolidation on right side which clinically suspect may be
pleural effusion. Will get a chest ultrasound and if any fluid will tap it otherwise continue with the current antibiotic regimen.
Chronic bilateral lower extremity swelling
Continue lasix
Hypokalemia-replete
Asymptomatic bacteriuria, sample was taken from old Hair
Chronic Hair when in bed
hx of klebsiella and E. coli
Follow urine culture-shows further microbial culture unclear to infection or colonization.
Repeat urine culture
hx of COPD
on trelegy
duoneb
Essential hypertension
Continue Cardizem, metoprolol
Restart losartan
Hypothyroidism
Synthroid
hx SSS s/p PPM
- continue BB
Peripheral neuropathy
Suspect CKD
Monitor renal function
IBS
Chronic pain syndrome/chronic opioid dependence
Continue with Percocet(hold for sedation), Lyrica
Restless leg syndrome
Chronic neurogenic bladder
Bladder scan
Anxiety/depression
DVT prophylaxis
Heparin
Continue PT/OT
Transfer to [facility]
Anticipated Discharge: Within 24 hours
Subjective/Interval History
-
Date of Service: September 08, 2024
Denies shortness of breath. She is currently down to 2 L of oxygen via nasal cannula.
No fever or chills.
Denies any right-sided chest pain or pleurisy.
No nausea vomiting. Tolerating diet.
Objective Data
-
Labs:
Laboratory Results
09/08/24
05:28
WBC 10.7
Hgb 11.7 L
Hct 37.5
Plt Count 196 D
Sodium 143
Potassium 3.3 L
Chloride 105
Carbon Dioxide 36 H
BUN 12
Creatinine 1.1 H
Glucose 91
Calcium 8.8
Vital Signs:
Vital Signs
Temp Pulse Resp BP Pulse Ox
98.5 F 82 19 159/77 95
09/08/24 07:35 09/08/24 07:31 09/08/24 07:31 09/08/24 06:00 09/08/24 07:47
I&O
09/07/24 09/08/24 09/09/24
06:59 06:59 06:59
Intake Total 1400 / 1400 560 / 560
Output Total 3200 / 3200 1300 / 1300
Balance -1800 / -1800 -740 / -740
Review of Systems
-
Neuro: Denies Dizzy
Physical Exam
-
General: No Apparent Distress
HEENT: Moist Mucous Membranes
Respiratory: Non Labored Respirations and Decreased Breath Sounds (rt lower zone); Negative Wheezes, Crackles or Accessory Resp Muscle Use
Cardiac: Regular Rhythm and S1/S2
GI: Soft
Neuro: AO x 3
Data Reviewed
-
Diagnostic Radiology: Report Reviewed by me (cxr)
Labs: Labs Reviewed by me
[2024-09-08] MEDS: IMODIUM 2 MG PO (11:17)
[2024-09-08] MEDS: FEOSOL 325 MG PO (12:44)
[2024-09-08] MEDS: SENOKOT-S PO (19:04)
[2024-09-08] MEDS: LOVENOX 40 MG SC (19:06)
[2024-09-08] MEDS: XANAX 0.25 MG PO (21:59)
[2024-09-08] MEDS: REMERON 30 MG PO (21:59)
[2024-09-08] MEDS: MELATONIN 3 MG PO (21:59)
[2024-09-08] MEDS: REQUIP 3 MG PO (21:59)
[2024-09-08] MEDS: PROTONIX 40 MG PO (21:59)
[2024-09-08] MEDS: CYMBALTA DELAYED RELEASE 30 MG PO (21:59)
[2024-09-09] VITALS (8 sets, daily range): BP systolic 148–173; BP diastolic 66–88; O2SAT 89; BMI 34.3
[2024-09-09] MEDS: PERCOCET 5/325 PO ×2 (00:38→23:53)
[2024-09-09] MEDS: SYNTHROID 137 MCG PO (04:27)
[2024-09-09] MEDS: ZOSYN 100 IV ×4 (04:27→23:34)
[2024-09-09] MEDS: PERCOCET 5/325 1 TABLET PO ×5 (04:27→19:47)
[2024-09-09] MEDS: SYMBICORT 160/4.5 MCG INHALER 2 PUFF INH ×2 (07:35→20:26)
[2024-09-09] MEDS: SPIRIVA RESPIMAT 2.5 MCG 2 PUFF INH (07:35)
[2024-09-09] MEDS: LIDOCAINE 4% PATCH 2 PATCH TOPICAL (08:50)
[2024-09-09] MEDS: MUCINEX 600 MG PO ×2 (08:52→19:47)
[2024-09-09] MEDS: COZAAR 50 MG PO (08:52)
[2024-09-09] MEDS: LYRICA 75 MG PO ×2 (08:52→19:47)
[2024-09-09] MEDS: IMODIUM 2 MG PO (08:52)
[2024-09-09] MEDS: VISBIOME 1 CAP PO (08:52)
[2024-09-09] MEDS: CYMBALTA DELAYED RELEASE 60 MG PO (08:52)
[2024-09-09] MEDS: LOPRESSOR 100 MG PO ×2 (08:53→19:54)
[2024-09-09] MEDS: CARDIZEM CD 300 MG PO (08:53)
[2024-09-09] MEDS: LOW STRENGTH ASPIRIN 81 MG PO (08:53)
[2024-09-09] MEDS: DESENEX/MITRAZOL/ZEASORB 1 APPLIC TOPICAL (08:53)
[2024-09-09] MEDS: LASIX 40 MG PO (08:53)
--- NOTE | 2024-09-09 10:16 | W.PN.HOSP.TC ---
Today's Communication/Plan
-
DC planning
Assessment / Plan
Assessment / Plan
Acute hypoxic respiratory failure secondary to pneumonia, suspect aspiration
Severe sepsis 2/2 Aspiration PNA
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
Was initially on high flow, now downt to 1l. Does not use any home O2
Remains without active bronchospasm-use DuoNebs as needed
history of bronchiectasis
Dr. Snyder discussed with daughter admission, does not want speech evaluation and accepts comfort feeds. She is now patient on mid flow, started IDD 6 diet. Daughter aware
Improving clinical status with less shortness of breath. White count normalized now.
Continue with Zosyn -completed 7 days in total .
Not bacteremic
repeat chest x-ray was done in view of persistent hypoxia though clinically improved to rule out any secondary complications of pneumonia. Clinically she has improved from pneumonia standpoint-currently without fevers, normalized white count,
tolerating diet. Oxygenation again today is good currently on 1 L. Unclear why she had a transient increase need of FiO2 yesterday. She has a chest x-ray showing increasing consolidation on right side which clinically suspect may be pleural
effusion. chest ultrasound shows minimal right-sided pleural effusion not enough to tap. Need to follow-up chest x-ray after discharge to follow resolution.
Wt is stable at 225lbs
Chronic bilateral lower extremity swelling
Continue lasix
Asymptomatic bacteriuria, sample was taken from old Hair
Chronic Hair
hx of klebsiella and E. coli
Follow urine culture-shows further microbial culture unclear to infection or colonization.
Repeat urine culture showed pseudomonas
Will change the Hair
Loose stools - tolerating diet. Check C diff /WBC in stool.
hx of COPD
on trelegy
duoneb
Essential hypertension
Continue Cardizem, metoprolol
Restarted losartan
Hypothyroidism
Synthroid
hx SSS s/p PPM
- continue BB
Peripheral neuropathy
Suspect CKD
Monitor renal function
IBS
Chronic pain syndrome/chronic opioid dependence
Continue with Percocet(hold for sedation), Lyrica
Restless leg syndrome
Chronic neurogenic bladder
Bladder scan
Anxiety/depression
DVT prophylaxis
Heparin
Continue PT/OT
Transfer to [facility]
DW daughter and updated the clincals
Anticipated Discharge: Within 24 hours
Subjective/Interval History
-
Date of Service: September 09, 2024
Just finished her breakfast. Tolerating well. Denies any nausea vomiting or abdominal pain. Apparently had a loose stool today.
No fever or chills.
Denies shortness of breath. Currently on 2 L of nasal cannula. Denies any chest pain.
No dizziness while in bed.
Objective Data
-
Vital Signs:
Vital Signs
Temp Pulse Resp BP Pulse Ox
98.0 F 72 18 173/88 94
09/09/24 07:56 09/09/24 07:56 09/09/24 07:56 09/09/24 08:06 09/09/24 07:56
I&O
09/08/24 09/09/24 09/10/24
06:59 06:59 06:59
Intake Total 560 / 560 200 / 200
Output Total 1300 / 1300 2450 / 2450
Balance -740 / -740 -2250 / -2250
Physical Exam
-
General: Comfortable
Respiratory: Non Labored Respirations and Decreased Breath Sounds (at right base); Negative Wheezes, Crackles or Accessory Resp Muscle Use
Cardiac: Regular Rhythm and S1/S2
GI: Soft and Nontender
Neuro: AO x 3
Psych: Calm
Data Reviewed
-
Ultrasound: Report Reviewed by me (us chest R)
--- NOTE | 2024-09-09 11:47 | PTCARENOTE ---
Hair cath exchanged with out difficulty. Fecal pouch placed for loose stools- collect if works. Soap and water bathed pre placement of both.
--- NOTE | 2024-09-09 15:37 | TRANSFER ---
Report given to Walker transported with staff to 425. Fecal pouch remains intact, empty- specimen is outstanding. Hair patent. OOB to chair today few hours. 1L NC remains on. Pleasant, c/o pain left arm and left knee (chronic) with Lido
patches on arm. Percocet q4 wa given x2 this shift. MASD partial thickness groin folds- Desenex powder.
--- NOTE | 2024-09-09 16:37 | CM ---
Patient from [facility] with Dx pneumonia, sepsis. O2 needs decreasing from 2L-1L today. Receiving IV Abx. PT 09/09; requires assist of 2, recommend skilled rehab. OT 09/09; dependent for toileting and LB self care, recommend skilled
rehab. Per nurse; patient haveing loose stools today. Hair in place.
Message from Dr Mon; patient may be ready for d/c tomorrow.
Spoke with Yudith, patient's daughter;
daughter aware of patient's clinical status from speaking with physician/nurse.
She agrees with the patient returning to [facility] when medically ready for d/c.
Daughter s a nurse at in [facility].
Spoke with Brielle, Ad[facility], [facility];
clinical update provided. The patient may possibly be ready for discharge tomorrow. Referral updated.
The patient will return to [address] - ph for report [phone], fax [phone].
Plan follow patient's O2 needs.
Plan return to [facility] when medically ready.
[2024-09-09] MEDS: SENOKOT-S PO (18:37)
[2024-09-09] MEDS: LOVENOX 40 MG SC (19:47)
[2024-09-09] MEDS: DESENEX/MITRAZOL/ZEASORB TOPICAL ×2 (19:54→20:04)
[2024-09-09] MEDS: XANAX 0.25 MG PO (21:20)
[2024-09-09] MEDS: CYMBALTA DELAYED RELEASE 30 MG PO (21:26)
[2024-09-09] MEDS: REMERON 30 MG PO (21:26)
[2024-09-09] MEDS: PROTONIX 40 MG PO (21:26)
[2024-09-09] MEDS: REQUIP 3 MG PO (21:26)
[2024-09-09] MEDS: MELATONIN 3 MG PO (21:26)
[2024-09-10] MEDS: PERCOCET 5/325 PO (05:07)
[2024-09-10] MEDS: SYNTHROID 137 MCG PO (05:43)
[2024-09-10] MEDS: OCEAN, SALINE MIST 1 SPRAYS NASAL (05:44)
[2024-09-10 06:00] VITALS: BMI 33.2
[2024-09-10 07:15] VITALS: BP 169/99
[2024-09-10 07:30] LABS: Blood Urea Nitrogen 14 mg/dl (7-17); Calcium 8.8 mg/dl (8.4-10.2); Carbon Dioxide 32 mmol/L (22-30); Chloride 103 mmol/L (98-107); Estimated Creatinine Clearance 49 ml/min; Glucose 81 mg/dl (70-99); Potassium 3.8 mmol/L (3.5-5.1); Sodium 144 mmol/L (135-145); eGFR 50.48
[2024-09-10] MEDS: SYMBICORT 160/4.5 MCG INHALER 2 PUFF INH (07:32)
[2024-09-10] MEDS: SPIRIVA RESPIMAT 2.5 MCG 2 PUFF INH (07:32)
[2024-09-10] MEDS: CARDIZEM CD 300 MG PO (08:40)
[2024-09-10] MEDS: VISBIOME 1 CAP PO (08:41)
[2024-09-10] MEDS: MUCINEX 600 MG PO (08:41)
[2024-09-10] MEDS: CYMBALTA DELAYED RELEASE 60 MG PO (08:41)
[2024-09-10] MEDS: LOPRESSOR 100 MG PO (08:41)
[2024-09-10] MEDS: PERCOCET 5/325 1 TABLET PO ×3 (08:42→16:43)
[2024-09-10] MEDS: LOW STRENGTH ASPIRIN 81 MG PO (08:42)
[2024-09-10] MEDS: LYRICA 75 MG PO (08:42)
[2024-09-10] MEDS: COZAAR 50 MG PO (08:42)
[2024-09-10] MEDS: LIDOCAINE 4% PATCH 2 PATCH TOPICAL (08:44)
[2024-09-10] MEDS: LASIX 40 MG PO (08:49)
[2024-09-10] MEDS: DESENEX/MITRAZOL/ZEASORB 1 APPLIC TOPICAL (08:50)
[2024-09-10 11:55] VITALS: BP 152/78
--- NOTE | 2024-09-10 14:02 | CM ---
Addendum entered by Helga Greer 09/10/24 16:15:
Patient scheduled for 5:30 p.m. transport, NM updated.
Original Note:
CM reviewed chart, patient seen asleep bedside. Patient for discharge today, return to [facility]. Call to patients daughter, Yudith, to discuss discharge, IMM reviewed, placed in chart. Patient will require ambulance transport. CM will continue
to follow for all discharge planning needs.
Plan return to [facility], ambulance transport
[facility]
Report [phone]
.
--- NOTE | 2024-09-10 14:27 | W.PN.HOSP.TC ---
Addendum entered and electronically signed by Brandt Mon MD 09/11/24 16:50:
CKD 3A
Original Note:
Today's Communication/Plan
-
DC
Assessment / Plan
Assessment / Plan
Acute hypoxic respiratory failure secondary to pneumonia, suspect aspiration
Severe sepsis 2/2 Aspiration PNA
Per daughter vomited night before [employer]
Was initially on high flow, now downt to RA today. Does not use any home O2
Remains without active bronchospasm-use DuoNebs as needed
history of bronchiectasis
Dr. Snyder discussed with daughter admission, does not want speech evaluation and accepts comfort feeds. She is now patient on mid flow, started IDD 6 diet. Daughter aware
Improving clinical status with less shortness of breath. White count normalized now.
Continue with Zosyn -completed 7 days in total .
Not bacteremic
repeat chest x-ray was done in view of persistent hypoxia though clinically improved to rule out any secondary complications of pneumonia. Clinically she has improved from pneumonia standpoint-currently without fevers, normalized white count,
tolerating diet. Oxygenation again today is good currently on 1 L. Unclear why she had a transient increase need of FiO2 yesterday. She has a chest x-ray showing increasing consolidation on right side which clinically suspect may be pleural
effusion. chest ultrasound shows minimal right-sided pleural effusion not enough to tap. Need to follow-up chest imaging-CT scan chest in 8 weeks recommended per pulmonary] after discharge to follow resolution.
Wt is stable at 225lbs
Resolved hypoxia.
Chronic bilateral lower extremity swelling
Continue lasix
Asymptomatic bacteriuria, sample was taken from old Hair
Chronic Hair
hx of klebsiella and E. coli
Follow urine culture-shows further microbial culture unclear to infection or colonization.
Repeat urine culture showed pseudomonas
Chronic Hair changed 09/09
Loose stools - tolerating diet. C. difficile negative.
hx of COPD
on trelegy
duoneb
Essential hypertension
Continue Cardizem, metoprolol
Restarted losartan
Hypothyroidism
Synthroid
hx SSS s/p PPM
- continue BB
Peripheral neuropathy
Suspect CKD
Monitor renal function
IBS
Chronic pain syndrome/chronic opioid dependence
Continue with Percocet(hold for sedation), Lyrica
Restless leg syndrome
Chronic neurogenic bladder
Bladder scan
Anxiety/depression
DVT prophylaxis
Heparin
Continue PT/OT
Medically stable for transfer back to [facility].
Discharge 32-minute
Anticipated Discharge: Today
Subjective/Interval History
-
Date of Service: September 10, 2024
Patient eating well without any abdominal pain, nausea or vomiting. Had 1 loose stool. No diarrhea.
Denies shortness of breath. Today she was 94% on room air with regards to oxygenation.
No chest pain. No dizziness.
Objective Data
-
Labs:
Laboratory Results
09/10/24
06:18
Sodium 144
Potassium 3.8
Chloride 103
Carbon Dioxide 32 H
BUN 14
Creatinine 1.1 H
Glucose 81
Calcium 8.8
Vital Signs:
Vital Signs
Temp Pulse Resp BP Pulse Ox
98.6 F 63 18 152/78 96
09/10/24 07:15 09/10/24 11:55 09/10/24 07:35 09/10/24 11:55 09/10/24 07:35
I&O
09/09/24 09/10/24 09/11/24
06:59 06:59 06:59
Intake Total 200 / 200 1590 / 1590
Output Total 2450 / 2450 1900 / 1900
Balance -2250 / -2250 -310 / -310
Physical Exam
-
General: Comfortable
Respiratory: Non Labored Respirations; Negative Wheezes, Crackles or Accessory Resp Muscle Use
Cardiac: Regular Rhythm and S1/S2
GI: Soft and Nontender
Neuro: AO x 3
[2024-09-10] MEDS: FEOSOL 325 MG PO (15:06)
[2024-09-10 15:18] VITALS: BP 160/88
--- NOTE | 2024-09-11 16:12 | W.DCSUMMARY ---
Discharge Summary
Discharge Data
Date of Admission: 09/03/24
Date of Discharge: 09/10/24
-
Pending Results: No
Hospital Course
Primary diagnosis:
Acute hypoxic respiratory failure which resolved
Severe sepsis secondary to pneumonia
Pneumonia suspected aspirational
History of bronchiectasis
Secondary diagnosis:
History of chronic obstructive pulmonary disease
Essential hypertension
Hypothyroidism
Permanent pacemaker in place for sick sinus syndrome
Peripheral neuropathy
Irritable bowel syndrome
Chronic pain syndrome/chronic opiate dependence
Restless leg syndrome
Chronic neurogenic bladder with chronic Hair catheter in place
Hospital course:
Patient resides in a local halfway presented with fever and shortness of breath. As per the daughter's history patient had vomited the night before. In the last year she had community-acquired pneumonia. On admission she was noted to be in
acute hypoxic respiratory failure requiring high flow which all resolved prior to discharge. She had associated severe sepsis secondary to pneumonia. Chest x-ray showed bilateral parenchymal opacity right greater than left. Findings were mostly
representing pneumonia. Culture data was negative but in view there was an isolation of Pseudomonas from the urine she was treated with antipseudomonal antibiotics for pneumonia 2. Her white count normalized. She improved. Per the wishes of the
patient and the daughter speech therapy was not consulted and they were aware about the association of aspiration and pneumonia. With the prodrome of vomiting prior to pneumonia onset raises concern for aspirational event. Pulmonary saw the
patient in the elective follow-up with a CT chest in 8 weeks to follow-up on bronchiectasis.
She had her Hair catheter changed on this admission.
Consultants on board:
Pulmonary-Alberto Aguilar
Discharge Plan
-
Patient Disposition: Senior Care/SNF
Discharge Diagnosis/Procedures: pneumonia
Diet: Regular
Activity: As tolerated
Driving Restrictions: No driving
Bathing Restrictions: None
Referrals:
Francisca Alexander MD [Active] - in two to three weeks ( will need a follow-up CT in about 8 weeks time to follow-up on prior noted bronchiectasis in right middle lobe. Arrange through pulmonary as Out patient.)
Rui Roe DO [Family Provider] -
Additional Discharge Medication Instructions: lorena
Prescriptions:
New
guaifenesin 600 mg Tablet Extended Release 12hr
600 mg PO Q12 Qty: 1 0RF
Continued
metoprolol tartrate 100 MG tablet
100 mg PO BID
losartan 50 mg Tablet
50 mg PO DAILY
Trelegy Ellipta 200-62.5-25 mcg Blister With Device
1 inh INHALATION R DAILY
furosemide 40 MG tablet
40 mg PO DAILY
duloxetine 30 MG capsule,delayed release(DR/EC)
30 mg PO HS
duloxetine 60 MG capsule,delayed release(DR/EC)
60 mg PO DAILY
bisacodyl [Dulcolax (bisacodyl)] 10 mg Suppository
10 mg MA [id number] PRN (Reason: if no BM/MOM ineffective)
lidocaine 4 % Adhesive Patch,Medicated
1 patch TOPICAL DAILY
Rx Instructions:
1 patch to left shoulder and 1 patch to left knee.
mirtazapine 30 mg Tablet
30 mg PO HS
acetaminophen 325 MG tablet
650 mg PO Q4HPRN MDD 3000 mg PRN (Reason: mild pain/fever>100.4)
loperamide 2 mg Tablet
2 mg PO Q6HPRN PRN (Reason: diarrhea)
cyanocobalamin (vitamin B-12) 1,000 mcg Tablet, Sublingual
1,000 mcg SUBLINGUAL WE
diclofenac sodium 1 % Gel
4 g TOPICAL Q6HPRN PRN (Reason: apply to left shoulder)
aspirin 81 mg Tablet,Chewable
81 mg PO DAILY
ipratropium-albuterol 0.5 mg-3 mg(2.5 mg base)/3 mL Solution For Nebulization
3 ml INHALATION R Q6HPRN PRN (Reason: sob)
ropinirole 3 mg Tablet
3 mg PO HS
triamcinolone acetonide 0.1 % Paste
1 applic DENTAL QIDPRN PRN (Reason: canker sores)
calcium carbonate 500 mg calcium (1,250 mg) Tablet,Chewable
500 mg PO DAILYPRN PRN (Reason: acid indigestion)
omeprazole 20 mg Tablet,Delayed Release (Dr/Ec)
40 mg PO HS
alprazolam [Xanax] 0.25 mg Tablet
0.25 mg PO BIDPRN PRN (Reason: anxiety) Qty: 10 0RF
cranberry extract 425 mg Capsule
425 mg PO DAILY
sennosides-docusate sodium [Senna-S] 8.6-50 mg Tablet
2 tab-cap PO QPM
melatonin 3 mg Tablet
3 mg PO HS
carboxymethylcellulose sodium [Refresh Plus] 0.5 % Dropperette
2 drp BOTH EYES QIDPRN PRN (Reason: dry eye)
Deep Sea Nasal 0.65 % Aerosol,[place]
1 spray INTRANASAL QIDPRN PRN (Reason: congestion/dryness)
lactulose 10 gram/15 mL solution
20 g PO HSPRN PRN (Reason: constipation)
pregabalin 75 mg capsule
75 mg PO BID
oxycodone-acetaminophen [Percocet] 5-325 mg tablet
1 tab PO Q4H
Rx Instructions:
1230, 1630, 2030, 0030, 0430
Acidophilus/Goat Milk Capsule
1 cap PO DAILY
levothyroxine [Synthroid] 137 mcg Tablet
137 mcg PO DAILY
ferrous sulfate 325 mg (65 mg iron) Tablet
325 mg PO MOWEFR@1230
fluticasone propionate 50 mcg/actuation [place],Suspension
2 spray INTRANASAL HS
cholecalciferol (vitamin D3) 1,250 mcg (50,000 unit) Tablet
1,250 mcg PO QMONTH
Rx Instructions:
every Friday of the month
diltiazem HCl 300 MG capsule,extended release 24hr
300 mg PO DAILY
dicyclomine 10 MG capsule
10 mg PO TIDPRN PRN (Reason: IBS)
Discharge Orders:
Discharge Patient (As Directed); Ordered 09/10/24
Ordered By: Brandt Mon
Discharge Date and Time
Discharge Date/Time: 09/10/24 18:22
Print Language: AZERI
== END 2024-09-10 18:22 | DRG 871 ==
LOC: 4 WEST ACU 13:07
PROVIDERS: Physician Assistant; ADMITTING PHYSICIAN Internal Medicine; ATTENDING PHYSICIAN Internal Medicine; CONSULT PHYSICIAN Internal Medicine Critical Care Medicine; EMERGENCY PHYSICIAN Emergency Medicine; FAMILY PHYSICIAN Student in an Organized Health Care Education/Training Program
DX: A41.9 Sepsis, unspecified organism (principal); J18.9 Pneumonia, unspecified organism; J69.0 Pneumonitis due to inhalation of food and vomit; J96.01 Acute respiratory failure with hypoxia; J47.0 Bronchiectasis with acute lower respiratory infection; J44.0 Chronic obstructive pulmonary disease with (acute) lower respiratory infection; F11.20 Opioid dependence, uncomplicated; N39.0 Urinary tract infection, site not specified; J84.9 Interstitial pulmonary disease, unspecified; R65.20 Severe sepsis without septic shock; I12.9 Hypertensive chronic kidney disease with stage 1 through stage 4 chronic kidney disease, or unspecified chronic kidney disease; N18.31 Chronic kidney disease, stage 3a; Z95.0 Presence of cardiac pacemaker; I49.5 Sick sinus syndrome; G60.9 Hereditary and idiopathic neuropathy, unspecified; K58.9 Irritable bowel syndrome, unspecified; G89.4 Chronic pain syndrome; G25.81 Restless legs syndrome; N31.9 Neuromuscular dysfunction of bladder, unspecified; E89.0 Postprocedural hypothyroidism; E66.9 Obesity, unspecified; Z68.33 Body mass index [BMI] 33.0-33.9, adult; Z88.2 Allergy status to sulfonamides; Z79.82 Long term (current) use of aspirin; Z79.890 Hormone replacement therapy; F32.A Depression, unspecified; F41.9 Anxiety disorder, unspecified; I73.9 Peripheral vascular disease, unspecified; M19.90 Unspecified osteoarthritis, unspecified site; Z79.899 Other long term (current) drug therapy; Z90.49 Acquired absence of other specified parts of digestive tract; Z11.52 Encounter for screening for COVID-19
CPT/HCPCS: 71045; 76604; 80048; 81003; 81015; 82805; 83605; 83735; 85025; 85027; 87040; 87070; 87077; 87086; 87186; 87324; 87449; 87502; 87811; 89055; 93005; 94640; 96365; 97163; 97167; 97530; 97535; 99285

== ENCOUNTER → 2024-10-12 09:40 | Outpatient (REF) | payer MEDICARE, OTHER, SELFPAY ==
[2024-10-12 10:29] LABS: Hematocrit 36.4 % (37.0-47.0); Hemoglobin 11.6 g/dL (12.0-16.0); Mean Corp Hgb Conc. 31.9 g/dL (33.0-37.0); Mean Corpuscular Hgb 28.3 pg (27.0-31.0); Mean Corpuscular Volume 88.8 fL (81.0-99.0); Mean Platelet Volume 10.6 fL (7.4-10.4); Platelet Count 205 10^3/uL (130-400); White Blood Cell Count 11.1 10^3/uL (4.8-10.8)
[2024-10-12 10:34] LABS: Blood Urea Nitrogen 19 mg/dl (7-17); Calcium 8.8 mg/dl (8.4-10.2); Carbon Dioxide 30 mmol/L (22-30); Chloride 108 mmol/L (98-107); Glucose 80 mg/dl (70-99); Sodium 143 mmol/L (135-145); eGFR 45.48
== END ==
LOC: OLABN 09:40
PROVIDERS: ATTENDING PHYSICIAN Student in an Organized Health Care Education/Training Program
DX: D64.9 Anemia, unspecified (principal); I10 Essential (primary) hypertension; N18.32 Chronic kidney disease, stage 3b
CPT/HCPCS: 36415; 80048; 85027

== ENCOUNTER → 2024-11-16 09:16 | Outpatient (REF) | payer MEDICARE, OTHER, SELFPAY ==
[2024-11-16 10:36] LABS: TSH 0.84 uIU/ml (0.47-4.68)
[2024-11-16 10:55] LABS: Vitamin B12 253 pg/ml (239-931)
== END ==
LOC: OLABN 09:16
PROVIDERS: ATTENDING PHYSICIAN Student in an Organized Health Care Education/Training Program
DX: E53.8 Deficiency of other specified B group vitamins (principal); E03.9 Hypothyroidism, unspecified
CPT/HCPCS: 36415; 82607; 84443

== ENCOUNTER → 2025-01-19 21:55 | Outpatient (REF) | payer MEDICARE, OTHER, SELFPAY ==
[2025-01-20 12:09] LABS: Urine Character Clear (Clear)
[2025-01-20 12:21] LABS: Urine Squamous Cell >30 /LPF (Few); Urine White Cell >100 /HPF (0-5)
[2025-01-20 12:23] LABS: Urine Red Blood Cell 0-2 /HPF (0-2)
== END ==
LOC: OLABN 21:55
PROVIDERS: ATTENDING PHYSICIAN Student in an Organized Health Care Education/Training Program
DX: R50.9 Fever, unspecified (principal)
CPT/HCPCS: 81003; 81015; 87086

== ENCOUNTER → 2025-01-20 10:48 | Outpatient (REF) | payer MEDICARE, OTHER, SELFPAY ==
[2025-01-20 11:36] LABS: Hematocrit 36.1 % (37.0-47.0); Hemoglobin 11.6 g/dL (12.0-16.0); Mean Corp Hgb Conc. 32.1 g/dL (33.0-37.0); Mean Corpuscular Volume 93.3 fL (81.0-99.0); Platelet Count 157 10^3/uL (130-400); Red Cell Dist. Width 14.7 % (11.5-14.5)
[2025-01-20 11:57] LABS: Blood Urea Nitrogen 30 mg/dl (7-17); Calcium 8.5 mg/dl (8.4-10.2); Carbon Dioxide 31 mmol/L (22-30); Chloride 101 mmol/L (98-107); Glucose 87 mg/dl (70-99); Potassium 3.7 mmol/L (3.5-5.1); Sodium 138 mmol/L (135-145); eGFR 45.19
== END ==
LOC: OLABN 10:48
PROVIDERS: ATTENDING PHYSICIAN Student in an Organized Health Care Education/Training Program
DX: R05.9 Cough, unspecified (principal); R53.83 Other fatigue
CPT/HCPCS: 36415; 80048; 85027

== ENCOUNTER → 2025-02-21 10:23 | Outpatient (REF) | payer MEDICARE, OTHER, SELFPAY ==
[2025-02-21 11:40] LABS: Vitamin B12 751 pg/ml (239-931)
== END ==
LOC: OLABN 10:23
PROVIDERS: ATTENDING PHYSICIAN Student in an Organized Health Care Education/Training Program
DX: E53.8 Deficiency of other specified B group vitamins (principal)
CPT/HCPCS: 36415; 82607

== ENCOUNTER → 2025-03-01 14:00 | Outpatient (REF) | payer MEDICARE, OTHER, SELFPAY ==
[2025-03-02 13:45] LABS: Urine Character Slightly Cloudy (Clear)
[2025-03-02 14:26] LABS: Urine Squamous Cell 0-2 /LPF (Few)
[2025-03-02 14:27] LABS: Urine Red Blood Cell 0-2 /HPF (0-2); Urine White Cell 50-60 /HPF (0-5)
== END ==
LOC: OLABN 14:00
PROVIDERS: ATTENDING PHYSICIAN Student in an Organized Health Care Education/Training Program
DX: R30.0 Dysuria (principal)
CPT/HCPCS: 81003; 81015; 87086

== ENCOUNTER → 2025-03-02 10:55 | Outpatient (REF) | payer MEDICARE, OTHER, SELFPAY ==
[2025-03-02 13:22] LABS: Hematocrit 35.7 % (37.0-47.0); Hemoglobin 11.3 g/dL (12.0-16.0); Mean Corp Hgb Conc. 31.7 g/dL (33.0-37.0); Mean Corpuscular Volume 93.0 fL (81.0-99.0); Nucleated Red Blood Cells % 0 %; Platelet Count 174 10^3/uL (130-400); Red Cell Dist. Width 14.0 % (11.5-14.5)
[2025-03-02 13:41] LABS: ALT (SGPT) 12 U/L (0-35); AST (SGOT) 18 U/L (14-36); Albumin 3.4 g/dl (3.5-5.0); Alkaline Phosphatase 104 U/L (38-126); Blood Urea Nitrogen 33 mg/dl (7-17); Calcium 8.4 mg/dl (8.4-10.2); Carbon Dioxide 28 mmol/L (22-30); Chloride 103 mmol/L (98-107); Glucose 86 mg/dl (70-99); Potassium 3.9 mmol/L (3.5-5.1); Sodium 138 mmol/L (135-145); Total Protein 5.9 g/dl (6.3-8.2); eGFR 41.06
== END ==
LOC: OLABN 10:55
PROVIDERS: ATTENDING PHYSICIAN Student in an Organized Health Care Education/Training Program
DX: R50.9 Fever, unspecified (principal)
CPT/HCPCS: 36415; 80053; 85025

== ENCOUNTER → 2025-03-03 09:42 | Outpatient (REF) | payer MEDICARE, OTHER, SELFPAY ==
[2025-03-03 11:56] LABS: Procalcitonin < 0.05 ng/ml (0.0-0.25)
== END ==
LOC: OLABN 09:42
PROVIDERS: ATTENDING PHYSICIAN Student in an Organized Health Care Education/Training Program
DX: R50.9 Fever, unspecified (principal)
CPT/HCPCS: 36415; 84145

== ENCOUNTER → 2025-03-31 12:03 | Outpatient (REF) | payer MEDICARE, OTHER, SELFPAY ==
[2025-03-31 13:13] LABS: Blood Urea Nitrogen 33 mg/dl (7-17); Calcium 8.3 mg/dl (8.4-10.2); Carbon Dioxide 28 mmol/L (22-30); Chloride 105 mmol/L (98-107); Glucose 83 mg/dl (70-99); Potassium 3.8 mmol/L (3.5-5.1); Sodium 139 mmol/L (135-145); eGFR 45.19
== END ==
LOC: OLABN 12:03
PROVIDERS: ATTENDING PHYSICIAN Student in an Organized Health Care Education/Training Program
DX: N18.9 Chronic kidney disease, unspecified (principal)
CPT/HCPCS: 36415; 80048